=== PATIENT | female | born 1965 | race Caucasian/White ===

== ENCOUNTER → 2017-10-15 | Outpatient (CLI) | payer OTHER ==
[~2017-10-15] MED LIST: ASCA500 PO; ATV1 PO; CALC600T9 PO; HYOS1TAB PO; MIRA100T PO; NATA1INJ IV; [UNRECOGNIZED DRUG - OTHER]
--- NOTE | 2017-10-15 12:09 | DIAGNOSTIC IMAGING REPORT ---
KUB CLINICAL HISTORY: MRI PAIN PUMP CLEARANCE COMPARISON STUDY: No previous studies for comparison. FINDINGS: There are surgical clips within the pelvis consistent with prior tubal ligation. There is a left midabdominal intrathecal pain pump, and catheter, demonstrating normal orientation. IMPRESSION: The patient's intrathecal pain pump demonstrates a normal orientation. Electronically signed by: Carlos Rm M.D. 10/15/2017 12:08 PM Dictated Date/Time: 10/15/2017 12:05 PM
== END | disposition home or self-care (01) ==
LOC: C.MRIBC 11:03
PROVIDERS: ATTEND Psychiatry & Neurology Neurology
DX: G35 Multiple sclerosis (principal); Z97.8 Presence of other specified devices

== ENCOUNTER 2021-11-02 17:04 | Inpatient (IN) ==
[2021-11-02 18:16] LABS: Hematocrit (blood only) 40.5 % (37-47); Hemoglobin 13.6 g/dL (12.0-16.0); Immature Granulocytes # (auto) 0.03 K/uL (0.00-0.02); Immature Granulocytes % (auto) 0.2 %; Lymphocytes # (auto) 0.76 K/uL (1.2-3.4); Lymphocytes % (auto) 3.9 %; Mean Corpuscular Hemoglobin 32.2 pg (25-34); Mean Corpuscular Hgb Conc 33.6 g/dL (32-36); Mean Platelet Volume 13.2 fL (7.4-10.4); Monocytes # (auto) 0.94 K/uL (0.11-0.59); Monocytes % (auto) 4.9 %; Neutrophils # (auto) 17.64 K/uL (1.4-6.5); Platelet Count 167 K/uL (130-400); RDW Coefficient of Variation 14.7 % (11.5-14.5); RDW Standard Deviation 51.9 fL (36.4-46.3); Red Blood Count 4.22 M/uL (4.2-5.4); White Blood Count 19.37 K/uL (4.8-10.8)
[2021-11-02 18:24] LABS: Alanine Aminotransferase 90 (12-78); Aspartate Aminotransferase 83 U/L (15-37); BUN Creatinine Ratio 16.8 (10-20); Blood Urea Nitrogen 16 mg/dl (7-18); Calcium 9.3 mg/dl (8.5-10.1); Carbon Dioxide 25 mmol/L (21-32); Chloride 101 mmol/L (98-107); Est GFR (African American) 76.6 ml/min; Est GFR (Non-African American) 66.1 ml/min; Glucose 127 mg/dl (70-99); Potassium 2.9 mmol/L (3.5-5.1); Sodium 137 mmol/L (136-145)
[2021-11-02 18:27] LABS: INR 1.2 (0.9-1.1); Partial Thromboplastin Ratio 1.7; Partial Thromboplastin Time 44.3 Seconds (21.0-31.0)
[2021-11-02 18:31] LABS: Albumin Globulin Ratio 0.8 (0.9-2); Alkaline Phosphatase 145 U/L (45-117); Bilirubin,Total 2.5 mg/dl (0.2-1); Globulin 3.8 gm/dl (2.5-4.0); Total Protein 6.8 gm/dl (6.4-8.2)
[2021-11-02] MEDS ORDERED: SODIUM CHLORIDE 0.9% 1000ML 1,000 ML IV ONE (18:32)
--- NOTE | 2021-11-02 18:35 | Emergency Department Note ---
Impression & Plan Sepsis ADMIT ED Provider Note HPI: The patient is a 56-year-old female with history of MS, history of intrathecal pump for baclofen/back pain, presents the emergency department with her at the bedside over concern for fever and decreased mentation/fatigue over the past several days. Patient's states that she has gotten like this previously because of urinary tract infections. He is also concerned that her baclofen pump dosage has been reduced recently and this has been causing her some discomfort. Patient is vaccinated against COVID-19 x2. Patient's at the bedside states that the patient is seems "not herself" over the past day and 1/2 to 2 days. States that she has been less responsive than usual, she has had fevers at home. Patient has not had any increased work of breathing, she is not had any vomiting. She appears somewhat listless on arrival but she is responsive to verbal stimuli. She is saturating well on room air. She is mildly tachycardic but otherwise does not appear to be in any acute distress. ROS: -General: Generalized weakness, fevers -Neuro: Declining mentation over the past several days *10 point review systems was conducted and is otherwise negative unless stated above *Outpatient medications and allergy history reviewed PE: General: Alert to verbal stimuli, listless appearing, wheelchair-bound HEENT: Normocephalic, atraumatic, trachea midline Eyes: Extraocular eye movement is intact, no scleral erythema Pulmonary: Tachycardic rate with regular rhythm Cardio: Regular rate and rhythm GI: Abdomen is soft, nontender : No suprapubic tenderness MSK: No evidence of trauma or malformation of the extremities, no edema Skin: No evidence of rash Neuro: Alert to verbal stimuli, no new focal deficits, baseline deficits with MS Psychiatric: Cooperative, not aggressive panel monitor: - An order was placed for continuous cardiac monitoring - Patient was noted to be in sinus rhythm with rate of 85 EKG: Rate: 90 Rhythm: Sinus rhythm with PVCs Intervals: Within normal limits ST changes: No ST elevation Time: 1851 Medical Decision Making: Patient presented with fevers from home, she is also had some generalized weakness and diminished mentation from baseline according to her at the bedside. Lab work shows evidence of a significant leukocytosis with white blood cell count greater than 19,000, blood cultures were drawn in the ED as well as urinalysis and urine culture. Urinalysis is consistent with infection, patient was treated with IV ceftriaxone. Patient was given IV fluids and tachycardia did downtrend. She was not given a full 30 cc/kg secondary to hemodynamic stability, lactic acid is noted to be within normal limits. I suspect that the patient's symptoms are secondary to urinary tract infection, she is alert to verbal stimuli, no obvious focal deficits. She does follow my commands appropriately. Interventions included IV fluids, IV ceftriaxone. Patient was given IV morphine for chronic back pain, she is on a baclofen pump for this. Chest x-ray does not show any evidence of pneumonia, COVID-19 testing is negative. Ultrasound im aging of the right upper quadrant was obtained as there is a slight transaminitis, this does not show any evidence of acute surgical pathology, does show some fatty liver disease which is likely the source of the transaminitis. I discussed all the above findings with the patient and her at the bedside and they are in agreement for admission. Patient was admitted in stable condition. Diagnosis: 1. Urinary tract infection, urosepsis 2. Leukocytosis 3. Hypokalemia 4. Transaminitis, elevated bilirubin, hepatic steatosis Disposition: ADMIT Fili Khan DO Emergency Medicine Past Med/Surg History Medical History (Updated 11/03/21 @ 00:25 by Fili Khan DO) Multiple sclerosis Presence of intrathecal pump since 2008 Surgical History Chronic suprapubic catheter 2012 H/O section S/P insertion of intrathecal pump 2008 Social History Smoking Status: Never smoker Hx Alcohol Use: No Hx Substance Use: No Preferred Language: German Visual Impairment: No Limitations Hearing Ability: Normal marital status: Current Living Situation: Family current occupational status: retired current occupation: [employer] Feels Safe at Home: Yes Allergies Allergies Allergy/AdvReac Type Severity Reaction Status Date / Time No Known Allergies Allergy ` Verified 11/02/21 19:05 Home Meds Home Medications Medication Instructions Recorded Confirmed ascorbic acid (vitamin C) 500 mg 500 mg PO DAILY 08/26/18 11/02/21 tablet calcium carbonate 160 mg calcium 400 mg PO BID tab 08/26/18 11/02/21 (400 mg) chewable tablet lorazepam 1 mg tablet (Ativan) 1 mg PO HS tab 08/26/18 11/02/21 baclofen pump INTRATHECAL 11/06/19 10/30/21 siponimod 2 mg tablet (Mayzent) mg PO .QD tab 04/17/20 10/30/21 furosemide 40 mg tablet 40 mg PO DAILY 05/06/21 11/02/21 simvastatin 20 mg tablet 20 mg PO DAILY 05/06/21 11/02/21 Previous Rx's Medication Instructions Recorded baclofen 10 mg tablet 10 mg PO TID #30 tab 10/15/21 Results & Data (ED) Vital Signs Vital Signs - 24 hr 11/02/21 17:05 11/02/21 22:37 11/03/21 00:21 Temperature 37.7 C H Temperature Source Oral Pulse Rate 106 H Pulse Rate [Left Radial] 70 82 Pulse Rhythm [Left Radial] Regular Regular Pulse Strength [Left Radial] Normal Normal Respiratory Rate 19 16 18 Respiratory Effort / Characteristics Non-Labored Spontaneous Non-Labored Non-Labored Spontaneous Respiratory Depth Normal Normal Normal Respiratory Pattern Regular Blood Pressure 128/102 H Blood Pressure [Left Arm] 152/76 H 120/81 Blood Pressure Mean 110 Blood Pressure Mean [Left Arm] 101 94 Blood Pressure Position [Left Arm] Sitting Pulse Oximetry 95 94 98 Oxygen Delivery Method Room Air Room Air Room Air Sepsis Recent Fever Within 48 Hours Yes Sepsis New/Unexplained Change in Mental Status N/A Sepsis Action Taken by Nursing No Action Required Laboratory Data Result diagrams: 11/02/21 17:30 11/02/21 17:30 Lab Results 11/02/21 11/02/21 11/02/21 Range/Units 17:30 17:30 17:30 WBC 19.37 H (4.8-10.8) K/uL RBC 4.22 (4.2-5.4) M/uL Hgb 13.6 (12.0-16.0) g/dL Hct 40.5 (37-47) % MCV 96.0 (80-100) fL MCH 32.2 (25-34) pg MCHC 33.6 (32-36) g/dL RDW Std Deviation 51.9 H (36.4-46.3) fL RDW Coeff of Lore 14.7 H (11.5-14.5) % Plt Count 167 (130-400) K/uL MPV 13.2 H (7.4-10.4) fL Immature Gran % (Auto) 0.2 % Neut % (Auto) 91.0 % Lymph % (Auto) 3.9 % Hendricks % (Auto) 4.9 % Eos % (Auto) 0.0 % Baso % (Auto) 0.0 % Neut # (Auto) 17.64 H (1.4-6.5) K/uL Lymph # (Auto) 0.76 L (1.2-3.4) K/uL Hendricks # (Auto) 0.94 H (0.11-0.59) K/uL Eos # (Auto) 0.00 (0-0.5) K/uL Baso # (Auto) 0.00 (0-0.2) K/uL Immature Gran # (Auto) 0.03 H (0.00-0.02) K/uL PT 12.0 (9.0-12.0) Seconds INR 1.2 H (0.9-1.1) APTT 44.3 H (21.0-31.0) Seconds PTT Ratio 1.7 Sodium 137 (136-145) mmol/L Potassium 2.9 L (3.5-5.1) mmol/L Chloride 101 (98-107) mmol/L Carbon Dioxide 25 (21-32) mmol/L Anion Gap 11.0 (3-11) BUN 16 (7-18) mg/dl Creatinine 0.96 (0.6-1.2) mg/dl Est Cr Clr Drug Dosing Not Reportable Est GFR ( Amer) 76.6 ml/min Est GFR (Non-Af Amer) 66.1 ml/min BUN/Creatinine Ratio 16.8 (10-20) Glucose 127 H (70-99) mg/dl Lactate (0.4-2.0) mmol/L Calcium 9.3 (8.5-10.1) mg/dl Total Bilirubin 2.5 H (0.2-1) mg/dl AST 83 H (15-37) U/L ALT 90 H (12-78) Alkaline Phosphatase 145 H (45-117) U/L Troponin I < 0.015 (0-0.045) ng/ml Total Protein 6.8 (6.4-8.2) gm/dl Albumin 3.0 L (3.4-5.0) gm/dl Globulin 3.8 (2.5-4.0) gm/dl Albumin/Globulin Ratio 0.8 L (0.9-2) Urine Color Urine Appearance (Clear) Urine pH (4.5-7.5) Ur Specific [place] (1.000-1.030) Urine Protein (Negative) Urine Glucose (UA) (Negative) Urine Ketones (Negative) Urine Blood (Negative) Urine Nitrite (Negative) Urine Bilirubin (Negative) Urine Urobilinogen (Negative) Ur Leukocyte Esterase (Negative) Urine WBC (Auto) (0-5) /hpf Urine RBC (Auto) (0-4) /hpf U Hyaline Cast (Auto) (0-5) /lpf U Epithel Cells (Auto) (0-5) /lpf Urine Bacteria (Auto) (Negative) Ur Renal Epithelial Cell (0-5) /lpf Urine Crystals Triple Phos Crystals (None Prsent) Urine Mucus (None Prsent) Urine Yeast SARS-CoV-2 (PCR) (Negative) Influenza Type A (PCR) (Neg) Influenza Type B (PCR) (Neg) RSV (RT-PCR) (Neg) 11/02/21 11/02/21 11/02/21 Range/Units 18:50 19:22 19:28 WBC (4.8-10.8) K/uL RBC (4.2-5.4) M/uL Hgb (12.0-16.0) g/dL Hct (37-47) % MCV (80-100) fL MCH (25-34) pg MCHC (32-36) g/dL RDW Std Deviation (36.4-46.3) fL RDW Coeff of Lore (11.5-14.5) % Plt Count (130-400) K/uL MPV (7.4-10.4) fL Immature Gran % (Auto) % Neut % (Auto) % Lymph % (Auto) % Hendricks % (Auto) % Eos % (Auto) % Baso % (Auto) % Neut # (Auto) (1.4-6.5) K/uL Lymph # (Auto) (1.2-3.4) K/uL Hendricks # (Auto) (0.11-0.59) K/uL Eos # (Auto) (0-0.5) K/uL Baso # (Auto) (0-0.2) K/uL Immature Gran # (Auto) (0.00-0.02) K/uL PT (9.0-12.0) Seconds INR (0.9-1.1) APTT (21.0-31.0) Seconds PTT Ratio Sodium (136-145) mmol/L Potassium (3.5-5.1) mmol/L Chloride (98-107) mmol/L Carbon Dioxide (21-32) mmol/L Anion Gap (3-11) BUN (7-18) mg/dl Creatinine (0.6-1.2) mg/dl Est Cr Clr Drug Dosing Est GFR ( Amer) ml/min Est GFR (Non-Af Amer) ml/min BUN/Creatinine Ratio (10-20) Glucose (70-99) mg/dl Lactate 0.5 (0.4-2.0) mmol/L Calcium (8.5-10.1) mg/dl Total Bilirubin (0.2-1) mg/dl AST (15-37) U/L ALT (12-78) Alkaline Phosphatase (45-117) U/L Troponin I (0-0.045) ng/ml Total Protein (6.4-8.2) gm/dl Albumin (3.4-5.0) gm/dl Globulin (2.5-4.0) gm/dl Albumin/Globulin Ratio (0.9-2) Urine Color Dark Yellow Urine Appearance Turbid A (Clear) Urine pH >= 9.0 H (4.5-7.5) Ur Specific [place] 1.023 (1.000-1.030) Urine Protein 3+ H (Negative) Urine Glucose (UA) Negative (Negative) Urine Ketones 2+ H (Negative) Urine Blood 1+ H (Negative) Urine Nitrite Positive A (Negative) Urine Bilirubin 1+ H (Negative) Urine Urobilinogen Negative (Negative) Ur Leukocyte Esterase 3+ H (Negative) Urine WBC (Auto) >30 H (0-5) /hpf Urine RBC (Auto) 5-10 H (0-4) /hpf U Hyaline Cast (Auto) 0 (0-5) /lpf U Epithel Cells (Auto) >30 H (0-5) /lpf Urine Bacteria (Auto) 3+ H (Negative) Ur Renal Epithelial Cell 0-5 (0-5) /lpf Urine Crystals Not Reportable Triple Phos Crystals Present A (None Prsent) Urine Mucus Present A (None Prsent) Urine Yeast Not Reportable SARS-CoV-2 (PCR) NEGATIVE (Negative) Influenza Type A (PCR) Negative (Neg) Influenza Type B (PCR) Negative (Neg) RSV (RT-PCR) Negative (Neg) Administered Medications Discontinued Medications Sodium Chloride (Nss 1000ml) 1,000 mls @ 999 mls/hr IV .[id number] ONE Stop: 11/02/21 19:32 Last Infusion: 11/02/21 22:25 Dose: 0 mls/hr Documented by: [id number] Admin: 11/02/21 21:14 Dose: 999 mls/hr Documented by: [id number] Ceftriaxone Sodium (Rocephin) 2,000 mg in 70 mls @ 140 mls/hr IV NOW STA Stop: 11/02/21 20:25 Last Infusion: 11/02/21 21:15 Dose: 0 mls/hr Documented by: [id number] Admin: 11/02/21 20:18 Dose: 140 mls/hr Documented by: [id number] Morphine Sulfate (Morphine Sulfate 2 Mg/Ml Carp) 2 mg IV NOW STA Stop: 11/02/21 19:37 Last Admin: 11/02/21 19:50 Dose: 2 mg Documented by: [id number] Potassium Chloride (Potassium Chloride Pwd 20 Meq Pack) 40 meq PO NOW STA Stop: 11/02/21 19:30 Last Admin: 11/02/21 20:19 Dose: 40 meq Documented by: [id number] Imaging Data Radiologist's Impression: Gallbladder Ultrasound 11/02/21 19:35 US gallbladder LIMITED ABDOMEN CLINICAL HISTORY: Back pain, elevated LFTs. COMPARISON: None. TECHNIQUE: Multiple grayscale and color images of the right upper quadrant of the abdomen. FINDINGS: Pancreas: The pancreas is within normal limits with no focal mass or peripancreatic fluid collection identified. Liver: The liver is heterogeneous in echogenicity There is no evidence for a focal mass. There is no intrahepatic biliary duct dilatation. Gallbladder: The gallbladder is well distended with no evidence of cholelithiasis, wall thickening or pericholecystic edema. There was a negative sonographic Field sign. Common Bile Duct: (CBD): It is normal in size measuring 5 mm. Inferior Vena Cava (IVC): The imaged IVC is patent. Right kidney: There is no evidence for hydronephrosis, calculus or gross renal mass. The kidney is normal in size. IMPRESSION: Heterogeneous echogenicity of the liver characteristic of hepatocellular disease and probable fatty infiltration. ACT 112: Negative or not required by law. Electronically signed by: Grupo Leyva M.D. 11/02/2021 9:04 PM Chest X-Ray 11/02/21 19:38 XR chest 1V portable CLINICAL HISTORY: Fever, eval for PNA. COMPARISON STUDY: No previous studies for comparison. TECHNIQUE: 1 view of the chest FINDINGS: Single frontal view of the chest demonstrates the cardiomediastinal silhouette to be within normal limits. The lungs are clear of alveolar opacities. There is no evidence for pleural effusion. There is no evidence for vascular congestion. There is no acute osseous pathology. IMPRESSION: No acute cardiopulmonary disease. ACT 112: Negative or not required by law. Electronically signed by: Grupo Leyva M.D. 11/02/2021 8:57 PM Discharge Plan Visit Data Chief Complaint: Back Injury/Pain Stated Complaint: FEVER, BACK PAIN, MUSCLE SPASMS ED Provider: Fili Khan Discharge Problem: Sepsis Forms Stand Alone Forms: [facility] [employer] Prescriptions Prescriptions: No Action baclofen pump intrathecal RF: 0 Mayzent 2 mg tablet PO .QD RF: 0 furosemide 40 mg tablet 40 mg PO DAILY RF: 0 simvastatin 20 mg tablet 20 mg PO DAILY RF: 0 ascorbic acid (vitamin C) 500 mg tablet 500 mg PO DAILY RF: 0 calcium carbonate 400 mg tablet,chewable 400 mg PO BID RF: 0 lorazepam [Ativan] 1 mg tablet 1 mg PO HS RF: 0 baclofen 10 mg tablet 10 mg PO TID Qty: 30 RF: 0 Referrals Referrals: Marilyn Alcantar MD [Primary Care Provider] - Discharge Problem: Sepsis Qualifiers: Sepsis type: sepsis due to unspecified organism Sepsis acute organ dysfunction status: unspecified Qualified Code(s): A41.9 - Sepsis, unspecified organism
[2021-11-02] MEDS ORDERED: POTASSIUM CHLORIDE PWD 20 MEQ PACK PO STA (19:29)
[2021-11-02] MEDS ORDERED: MoRPHine SULFATE 2 MG/ML CARP IV STA (19:36)
[2021-11-02 19:38] LABS: Troponin I < 0.015 ng/ml (0-0.045)
[2021-11-02 19:39] LABS: Appearance Urine Turbid (Clear); Bacteria Urine Automated 3+ (Negative); Blood Urine 1+ (Negative); Color Urine Dark Yellow; Epithelial Cell Urine Auto >30 /lpf (0-5); Glucose Urine UA Negative (Negative); Ketones Urine 2+ (Negative); Leukocyte Esterase Urine 3+ (Negative); Nitrite Urine Positive (Negative); Specific Gravity Urine 1.023 (1.000-1.030); Urobilinogen Urine Negative (Negative); WBC Urine Automated >30 /hpf (0-5); pH Urine >= 9.0 (4.5-7.5)
[2021-11-02 19:42] LABS: Influenza A virus by PCR Negative (Neg); Influenza B virus by PCR Negative (Neg); RSV by PCR Negative (Neg); SARS CoV2 RNA(COVID-19) InHosp NEGATIVE (Negative)
[2021-11-02 19:51] LABS: Bilirubin Urine 1+ (Negative); Protein Urine 3+ (Negative)
[2021-11-02] MEDS ORDERED: cefTRIAXone SODIUM 2,000 MG/70 ML BAG IV STA (19:56)
[2021-11-02 20:05] LABS: Cast Urine Automated 0 /lpf (0-5); Mucus Urine Present (None Prsent); Renal Epithelial Cells Urine 0-5 /lpf (0-5); Triple Phosphate Crystal Urine Present (None Prsent)
--- NOTE | 2021-11-02 20:58 | XRay Report ---
XR chest 1V portable CLINICAL HISTORY: Fever, eval for PNA. COMPARISON STUDY: No previous studies for comparison. TECHNIQUE: 1 view of the chest FINDINGS: Single frontal view of the chest demonstrates the cardiomediastinal silhouette to be within normal li mits. The lungs are clear of alveolar opacities. There is no evidence for pleural effusion. There is no evidence for vascular congestion. There is no acute osseous pathology. IMPRESSION: No acute cardiopulmonary disease. ACT 112: Negative or not required by law. Electronically signed by: Grupo Leyva M.D. 11/02/2021 8:57 PM
--- NOTE | 2021-11-02 21:05 | Ultrasound Report ---
US gallbladder LIMITED ABDOMEN CLINICAL HISTORY: Back pain, elevated LFTs. COMPARISON: None. TECHNIQUE: Multiple grayscale and color images of the right upper quadrant of the abdomen. FINDINGS: Pancreas: The pancreas is within normal limits with no focal mass or peripancreatic fluid collection identified. Liver: The liver is heterogeneous in echogenicity There is no evidence for a focal mass. There is no intrahepatic biliary duct dilatation. Gallbladder: The gallbladder is well distended with no evidence of cholelithiasis, wall thickening o r pericholecystic edema. There was a negative sonographic Field sign. Common Bile Duct: (CBD): It is normal in size measuring 5 mm. Inferior Vena Cava (IVC): The imaged IVC is patent. Right kidney: There is no evidence for hydronephrosis, calculus or gross renal mass. The kidney is n ormal in size. IMPRESSION: Heterogeneous echogenicity of the liver characteristic of hepatocellular disease and pro bable fatty infiltration. ACT 112: Negative or not required by law. Electronically signed by: Grupo Leyva M.D. 11/02/2021 9:04 PM
[2021-11-03] MEDS ORDERED: POTASSIUM CHLORIDE / WTR 10 MEQ/100 ML PLCT IV STA (00:28)
[2021-11-03] MEDS ORDERED: ONDANSETRON INJ 2 MG/ML 2 ML VIAL IV PRN (02:25)
[2021-11-03] MEDS ORDERED: NITROGLYCERIN SL 0.4 MG/TAB TAB SL PRN (02:25)
[2021-11-03] MEDS ORDERED: PIPERACILL/TAZOBAC CONSULT ACTIVE PRN (02:25)
[2021-11-03] MEDS ORDERED: HYDROmorphone INJ 0.5 MG/0.5 ML SYR IV PRN (02:44)
--- NOTE | 2021-11-03 03:12 | History and Physical Report ---
DATE OF ADMISSION: 11/02/2021. CHIEF COMPLAINT: Confusion. HISTORY OF PRESENT ILLNESS: A 56-year-old female with past medical history significant for severe multiple sclerosis, neurogenic bladder, detrusor hyperreflexia, history of cellulitis of left groin, wheelchair bound, lives at home with her , was brought in because of confusion. As per , recently her baclofen pump dose was reduced to minimal dose and started on p.o. baclofen. Since then, she is complaining of back pain. There was supposed to be a baclofen pump replacement, but the patient did not want to replace it because of complications that happened before.But since today morning she is confused, she is not at all moving. Her hands are contractured and she is not at all talking and confused. This happens when she gets infections. She was able to eat her lunch. Currently, she is drowsy, arousable, but only keep repeating her name does not answer any other questions. She has a mild temperature spike in the ER, white count of 19, and urinalysis grossly positive. Bilirubin is 2.5. Gallbladder ultrasound, no evidence of cholelithiasis or cholecystitis. As per , she is complaining of back pain, but no other symptoms. No nausea or vomiting. No fever. No diarrhea. Seems urine looks somewhat concentrated. Could not get much history currently. ALLERGIES: No known drug allergies. PAST MEDICAL HISTORY: As mentioned above. PAST SURGICAL HISTORY: . MEDICATIONS: The patient is on ascorbic acid 500 mg p.o. daily, baclofen 10 mg p.o.bid, baclofen pump, calcium carbonate 400 mg p.o. b.i.d., Lasix 40 mg p.o. daily, Ativan 1 mg p.o. at bedtime, simvastatin 20 mg p.o. daily, Mayzent 2 mg p.o. daily. FAMILY HISTORY: Significant for father has alcoholic liver disease, lung cancer, mets to brain; mother had COPD; paternal grandmother had COPD; sister has multiple sclerosis. SOCIAL HISTORY: , no smoking, no alcohol, no drug use. REVIEW OF SYSTEMS: Could not get complete review of systems as the patient is confused. PHYSICAL EXAMINATION: GENERAL: The patient is drowsy, arousable, only oriented to name. VITAL SIGNS: Temperature 37.7, pulse 82, respiratory rate 18, blood pressure 120/81, oxygen 98% on room air. HEENT: Pupils equal, round and reactive to light. Oral mucosa moist. NECK: No JVD, no neck masses. CARDIOVASCULAR: S1 and S2 heard. Regular rate and rhythm. No murmur, no gallop. RESPIRATORY SYSTEM: Normal AP diameter. No accessory muscle use. No wheezing, no crackles. ABDOMEN: Soft, bowel sounds present, nontender, no distention. CENTRAL NERVOUS SYSTEM: Drowsy. Oriented to name only. No other complaints on [employer] exam. EXTREMITIES: No edema, no erythema. LABORATORY DATA: WBC 19, hemoglobin 13.6, hematocrit 40.5, platelets 167. PT 10.12, INR 1.2, APTT 44.3. Sodium 137, potassium 2.9, chloride 101, CO2 25, BUN 16, creatinine 0.9, serum glucose 127. Lactate 0.5, calcium 9.3, total bilirubin 2.5, AST 83, ALT 90, alkaline phosphatase 145. Troponin I less than 0.015. Urinalysis positive. SARS-CoV-2 PCR negative. Influenza A and B PCR negative. RSV PCR negative. IMAGING DATA: Chest x-ray, no acute cardiopulmonary disease. Gallbladder ultrasound, heterogenous echogenicity of liver characteristic of hepatocellular disease and probable fatty infiltration. Gallbladder is well distended. No evidence of cholelithiasis, no evidence of cholecystitis. EKG: Sinus rhythm with frequent PVCs at a rate of 90, nonspecific ST changes seen. ASSESSMENT AND PLAN: This is a 56-year-old female who presents with history of multiple sclerosis, wheelchair bound, presents with confusion and found to have urinary tract infection. 1. Confusion: Most likely encephalopathy secondary to urinary tract infection. Empirically started on Zosyn. Follow the cultures. Started on IV fluids. Monitor in the med tele. 2. Hypokalemia: Will replace. 3. Elevated total bilirubin and transaminitis: Etiology unclear at this time. Gallbladder ultrasound was okay. Will follow the repeat labsin am sand consult gastroenterology in the a.m., getting antibiotics as above. 4. History of multiple sclerosis Wheelchair bound.. Neurogenic bladder: Continue her baclofen pump and home baclofen, Ativan at bedtime and Mayzent. If not improving, consult neurology in the a.m. 5. Hyperlipidemia: Continue statin. 6. Deep venous thrombosis prophylaxis: Lovenox for now. DISPOSITION: Closely monitor in the med tele. PT/OT prior to discharge. Social service to help with discharge planning. Job ID: [id number] [facility]
[2021-11-03] MEDS ORDERED: PIPERACILLIN/TAZOBACTAM 3.375 GM in DEXTROSE 5% 100 ML IV ONE (03:15)
[2021-11-03] MEDS: SODIUM CHLORIDE 0.9% 1000ML 1,000 ML IV SCH ×3 (04:22→23:31)
[2021-11-03] MEDS: ENOXAPARIN INJ 40 MG/0.4 ML SYR SQ SCH (05:07)
[2021-11-03 05:15] LABS: Hematocrit (blood only) 37.8 % (37-47); Hemoglobin 12.2 g/dL (12.0-16.0); Immature Granulocytes # (auto) 0.02 K/uL (0.00-0.02); Immature Granulocytes % (auto) 0.1 %; Lymphocytes # (auto) 0.61 K/uL (1.2-3.4); Lymphocytes % (auto) 4.3 %; Mean Corpuscular Hgb Conc 32.3 g/dL (32-36); Mean Corpuscular Volume 96.2 fL (80-100); Monocytes # (auto) 0.44 K/uL (0.11-0.59); Monocytes % (auto) 3.1 %; Neutrophils # (auto) 13.05 K/uL (1.4-6.5); Neutrophils % (auto) 92.5 %; Platelet Count 149 K/uL (130-400); RDW Coefficient of Variation 14.7 % (11.5-14.5); RDW Standard Deviation 52.2 fL (36.4-46.3); Red Blood Count 3.93 M/uL (4.2-5.4); White Blood Count 14.12 K/uL (4.8-10.8)
[2021-11-03 05:46] LABS: Albumin Level 2.8 gm/dl (3.4-5.0); BUN Creatinine Ratio 25.1 (10-20); Bilirubin Direct 0.5 mg/dl (0-0.2); Calcium 8.8 mg/dl (8.5-10.1); Creatinine Clr Calc Pharmacy 74.2 ml/min; Est GFR (African American) 112.3 ml/min; Est GFR (Non-African American) 96.9 ml/min; Magnesium 1.9 mg/dl (1.8-2.4); Potassium 3.4 mmol/L (3.5-5.1)
[2021-11-03 06:02] LABS: Total Protein 6.5 gm/dl (6.4-8.2)
--- NOTE | 2021-11-03 07:48 | Electrocardiogram Report ---
Test Reason : Blood Pressure : / mmHG Vent. Rate : 090 BPM Atrial Rate : 090 BPM P-R Int : 150 ms QRS Dur : 086 ms QT Int : 380 ms P-R-T Axes : 044 -31 055 degrees QTc Int : 464 ms Sinus rhythm with frequent Premature ventricular complexes Possible Left atrial enlargement Left axis deviation Abnormal ECG When compared with ECG of 11-NOV-2015 09:51, Premature ventricular complexes are now Present QRS axis Shifted left Confirmed by Chriss Maradiaga ([id number]) on 11/03/2021 7:48:01 AM Referred By: Michael Eason Confirmed By:Ivan Maradiaga
[2021-11-03] MEDS ORDERED: POTASSIUM CHLORIDE CRTAB 20 MEQ TABCR PO STA (08:34)
[2021-11-03] MEDS: PIPERACILLIN/TAZOBACTAM 3.375 GM in DEXTROSE 5% 100 ML IV SCH ×2 (08:39→17:18)
[2021-11-03] MEDS: ASCORBIC ACID 500 MG TAB PO SCH (08:44)
[2021-11-03] MEDS: CALCIUM CARBONATE 1250MG TAB PO SCH ×2 (08:45→21:04)
[2021-11-03] MEDS: BACLOFEN 10 MG TAB PO SCH ×3 (08:45→21:04)
[2021-11-03] MEDS: SIMVASTATIN 20 MG TAB PO SCH (08:46)
--- NOTE | 2021-11-03 09:24 | Pain Management Consultation ---
Date of Consultation November 03, 2021 Assessment & Plan (1) Multiple sclerosis: (2) Presence of intrathecal pump: (3) Chronic suprapubic catheter: (4) Sepsis: Sepsis acute organ dysfunction status: unspecified Sepsis type: sepsis due to unspecified organism Qualified Code(s): A41.9 - Sepsis, unspecified organism 1. Patient's intrathecal baclofen pump dosing has been gradually reduced over the past 6 months and was adjusted from approximately 9 mcg/day to 1 mcg/day on 10/30/2021. The patient has prior history of similar presentation with infections in the past and appears to currently be septic potentially associated UTI/pyelonephritis upon this admission which may explain her plethora of symptoms. Unlikely relationship with her recent dose reduction in her intr athecal baclofen pump although her dose was reverted back to 9 mcg/day which was her dose on 10/30/2021 prior to the recent adjustment. We will plan for further adjustment in the outpatient setting. 2. Patient may utilize oral baclofen 10 mg 3 times daily-will adjust as needed given recent pump adjustment 3. Will transition hydromorphone 0.5 mg IV from every 6 to every 4 due to persisting complaints of back pain 4. Patient will continue her antibiotic therapy pending outcome of urine culture/sensitivities 5. Will continue to follow upon this admission Thank you for allowing us to participate in the care of Mrs. Adams History of Present Illness Reason for Consultation: Management of intrathecal baclofen pump Requesting Physician: Guillermo Orozco MD Attending Physician: Khanh Blakely MD History of Present Illness Ms. Adams is a 56-year-old white female who is well-known to the [facility] pain service for chronic management of her intrathecal baclofen pump. The patient has history of multiple sclerosis which has required implantat ion of intrathecal baclofen pump cath delivery system for control of spasticity. The patient has most recently been undergoing dose reductions of her intrathecal baclofen pump in an attempt to determine necessity of ongoing use of intrathecal pump as her pump battery is currently depleting and she will need pump replacement within the next 11 months. Patient had been undergoing successful dose reductions without evidence of breakthrough spasticity or complications. The patient underwent a dose reduction from approximately 8.9 mcg/day to 1.1 mcg/day on 10/30/2021. The patient was provided oral baclofen for as needed breakthrough spasm. The patient's contacted the on-call nurse through pain clinic yesterday with complaints of spasm. He was also reporting fevers and complaints of pain which led to emergent evaluation. Patient has been admitted with fever and suspected UTI and began on antibiotic therapy. The patient has not been experiencing any significant difficulties with breakthrough spasm per the patient or her 's reporting. There have been some episodes of confusion and minimal talking. She is complaining of low back pain, but has difficulty describing location or characteristic at today's visit. She also has some right-sided knee and ankle pain as she had a fall in the home last week. There was no primary evaluation since the time of the fall. Patient has prior history of UTI with similar presentations per the 's report. Patient has been started on antibiotic therapy upon his admission with urine cultures pending. The patient denies any radicular pattern pain, abdominal pain or any significant spasm. The denied any redness or swelling of the right knee or ankle region. Pain complaint is only present with movement predominately of the right knee region. No further constitutional complaints were noted. Plan of care discussed with Dr. Eason. Pain Assessment Full Body Front + Back: 1. Lumbar spine-axial nonspecific 2. Right knee pain 3. Right ankle pain Pain scale - at its best (0-10): 3 Pain scale - at its worst (0-10): 7 Allergies Allergy/AdvReac Type Severity Reaction Status Date / Time No Known Allergies Allergy ` Verified 11/02/21 19:05 Home Medications Medication Instructions Recorded Confirmed Type ascorbic acid (vitamin C) 500 mg 500 mg PO DAILY 08/26/18 11/02/21 History tablet calcium carbonate 160 mg calcium 400 mg PO BID tab 08/26/18 11/02/21 History (400 mg) chewable tablet lorazepam 1 mg tablet (Ativan) 1 mg PO HS tab 08/26/18 11/02/21 History baclofen pump INTRATHECAL 11/06/19 10/30/21 History siponimod 2 mg tablet (Mayzent) mg PO .QD tab 04/17/20 10/30/21 History furosemide 40 mg tablet 40 mg PO DAILY 05/06/21 11/02/21 History simvastatin 20 mg tablet 20 mg PO DAILY 05/06/21 11/02/21 History baclofen 10 mg tablet 10 mg PO TID #30 tab 10/15/21 11/02/21 Rx Pain History Pain Intensity Pain scale - at its best (0-10): 3 Pain scale - at its worst (0-10): 7 Patient History Medical History (Updated 11/03/21 @ 00:25 by Fili Khan DO) Multiple sclerosis Presence of intrathecal pump since 2008 Surgical History Chronic suprapubic catheter 2012 H/O section S/P insertion of intrathecal pump 2008 Social History Smoking Status: Never smoker Hx Alcohol Use: No Hx Substance Use: No Preferred Language: Omani Visual Impairment: No Limitations Hearing Ability: Normal marital status: Current Living Situation: Family current occupational status: retired current occupation: [employer] Feels Safe at Home: Yes Physical Exam Physical Exam: General: Patient sitting quietly in exam room in no acute distress. Mood and affect appropriate. Patient was sitting up in motorized wheelchair upon in the room accompanied by her . Patient with difficulty verbalizing answers to questions-word finding difficulties Head: Normocephalic and atraumatic. ENT: No evidence of nasal or oral mucosal lesions. Mucous membranes are moist. Eyes: Pupils equal round reactive to light. Neck: Supple without adenopathy and full range of motion. Chest: Nontender to palpation of the costosternal junction. Abdomen: Soft and nondistended. No organomegaly. Bowel sounds active. Intr athecal pump present in the left lower quadrant without evidence of edema, erythema or skin breakdown. Nontender to palpation. Back/spine: Loss of lordosis. Patient is moderately tender at the lumbosacral junction bilaterally and equal. Nontender over the midline. No focal facet joint tenderness. No obvious skin breakdown over the lumbar region. Minimally tender to percussion over the flank region bilaterally. 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 Right knee without evidence of edema, erythema or warmth. Nontender to palpation along the medial lateral joint line. Right knee discomfort was reported by the patient with extension. No visible abnormalities of the right ankle or foot. Nontender with dorsi/plantar flexion passive/active. Extremities: No spontaneous spasticity/contraction appreciated. I am able to passively extend and flex her upper and lower extremities without rigidity. Neurological: Cranial nerves grossly intact. Ambulatory function via motorized wheelchair.
[2021-11-03] MEDS ORDERED: OPTIRAY 320 100ml IV ONE (11:08)
--- NOTE | 2021-11-03 11:27 | CT Scan Report ---
CT OF THE ABDOMEN AND PELVIS WITH CONTRAST CLINICAL HISTORY: elevated LFTs. COMPARISON STUDY: Right upper quadrant ultrasound November 02, 2021. TECHNIQUE: Following IV administration of 95 mL of Optiray, axial images of the abdomen and pelvis we re obtained from the lung bases to the proximal femurs. Images were reviewed in the axial, sagittal, and coronal planes. IV contrast was administered without complication. Automated exposure control wa s utilized for the study. A dose lowering technique was utilized adhering to the principles of ALARA . CT DOSE: 788.98 mGy.cm FINDINGS: [id number] is partially imaged. Trace left pleural effusion is noted with associated ate lectasis. An intrathecal catheter is partially imaged. Catheter tip is not visualized on this exam. V isualized portions of the catheter are intact. No pneumatosis, free air or portal venous gas is prese nt. The liver, spleen, adrenal glands and pancreas are unremarkable. There is no biliary or pancreati c ductal dilatation. There is no peripancreatic or pericholecystic infiltration. Bilateral renal calc demetrius are noted, including an 8 mm calculus within the upper pole of the right kidney. There is mild le ft hydronephrosis due to a 7 mm proximal left ureteral calculus. In addition, there is a 3 mm calculu s within the left renal pelvis. Left nephrogram is mildly delayed. A few hypoenhancing foci within th e left kidney are noted. Mild left perinephric stranding is present. There is mild urothelial thicken ing of the proximal left ureter. Suprapubic catheter is in place. Note is made of a 1.6 cm bladder ca lculus. Bladder is collapsed. The caliber and wall thickness of small and large bowel are normal. The appendix is normal. There is no evidence for a bowel obstruction. There is trace presacral infiltrat ion. Moderate amount stool within the rectum is noted. There is no abscess. Major vasculature is porter nt. Muscular atrophy is incidentally noted. IMPRESSION: 1. 7 mm proximal left ureteral calculus results in mild left hydronephrosis. Heterogeneous enhancemen t of the left kidney and urothelial thickening of the proximal left ureter is likely due to the obstr uction however a superimposed infectious process could appear similar. 2. Bilateral nephrolithiasis. 3 mm left renal pelvis calculus. 3. No biliary ductal dilatation. 4. Suprapubic catheter in place. 1.6 cm bladder calculus. ACT 112: Negative or not required by law. Electronically signed by: Sekou Blount M.D. 11/03/2021 11:26 AM
--- NOTE | 2021-11-03 12:38 | Gastrointestinal Consultation ---
Date of Consultation November 03, 2021 Assessment & Plan (1) Elevated LFTs: She had significant elevated T Bili on arrival, with moderate transaminase elevation. I was able to speak with her PCP office who reported one episode of previous transaminitis in Sep 2020: AST 65, ALT 74 though T Bili was 0.4 at that time. She also had a mild AST elevation in January of this year at 38. She does not seem to be uncomfortable and there is no evidence of gallbladder or bile duct abnormalities on imaging. Suspect related to infection ? UTI on this arrival or related to the medication Mayzet or a combination of one of these and the fatty liver that is present on imaging. The previously mentioned moderate transaminitis in Sep 2020 was prior to the initiation of the Mayzet which was Nov 2020. According to the NIH liver tox website, this med has been found to increase transaminase levels in approx 6-8% of pts, though there hasn't been cases of clinically significant liver injury. This would not explain the T bili elevation on arrival or mild D Bili elevation this morning. Recheck LFTs tomorrow. Will check autoimmune and infectious serologies. Supervising Physician Co-Signing Physician Notes Attg Add: I interviewed and examined pt, reviewed chart and labs. Pt with MS and IT pump confusion and WBC, possibly related to UTI, found to have LFT elevation, transient increased bili. Lipase unremarkable, Uls without fred dil or stones, CT unremarkable. Possible DILI vs stones/sludge. Will follow labs for now, consider EUS if bili bumps again. Of note, cannot History of Present Illness Reason for Consultation: Elevated LFTs Requesting Physician: Dr. Orozco Attending Physician: Khanh Blakely MD History of Present Illness Ms. My Adams is a 56 yr old female pt of Dr. Marilyn Alcantar MD ([facility]) who presented to the ED yesterday for confusion which cleared this morning. Urine was dark on arrival, she had leukocytosis at 19. She had a temp to 37.7 here. However, prior to arrival, other than confusion, the pt and verify that there were no signs of illness/infection other than the confusion. On arrival LFTs were found to be elevated (T Bili 2.5-> 1; AST 85- >40, ALT 90->77, Alk Phos 145->136. She denies any abdominal pain, jaundice, icterus, pruritus, nausea, decreased appetite or unexplained weight loss. On exam, she is awake, alert,oriented, non tender w/o jaundice. Allergies Allergy/AdvReac Type Severity Reaction Status Date / Time No Known Allergies Allergy ` Verified 11/02/21 19:05 Home Medications Medication Instructions Recorded Confirmed Type ascorbic acid (vitamin C) 500 mg 500 mg PO DAILY 08/26/18 11/02/21 History tablet calcium carbonate 160 mg calcium 400 mg PO BID tab 08/26/18 11/02/21 History (400 mg) chewable tablet lorazepam 1 mg tablet (Ativan) 1 mg PO HS tab 08/26/18 11/02/21 History baclofen pump INTRATHECAL 11/06/19 10/30/21 History siponimod 2 mg tablet (Mayzent) 2 mg PO DAILY tab 04/17/20 11/03/21 History furosemide 40 mg tablet 40 mg PO DAILY 05/06/21 11/02/21 History simvastatin 20 mg tablet 20 mg PO DAILY 05/06/21 11/02/21 History baclofen 10 mg tablet 10 mg PO TID #30 tab 10/15/21 11/02/21 Rx Patient History Medical History (Updated 11/03/21 @ 12:23 by LINDA Murphy) Multiple sclerosis Presence of intrathecal pump since 2008 Surgical History Chronic suprapubic catheter 2012 H/O section S/P insertion of intrathecal pump 2008 Social History Smoking Status: Never smoker Hx Alcohol Use: No Hx Substance Use: No Preferred Language: Czech Communication Ability: Effective Visual Impairment: No Limitations Hearing Ability: Normal Armature 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 Required: No Beliefs That Will Affect Care: None marital status: Current Living Situation: Spouse current occupational status: retired current occupation: [employer] How many Children do You have: 0 Feels Safe at Home: Yes Safety Concerns: Feels Safe At This Time Assistive Devices: Mechanical Lift and Wheelchair Review of Systems Review of Systems: ROS: Gen: + weakness, + confusion, no fevers, no weight loss Eyes: No yellow eyes or eye redness, no eye pain, no recent vision changes Resp: No SOB, no cough Cardio: No palpitations/irregular beats, no chest pain GI: No abdominal pain, no nausea/vomiting : + dark urine but no obvious blood in urine. Suprapubic cath present Skin: No jaundice, itching or new rashes Physical Exam Constitutional: well developed, + ill appearing (chronically ), cooperative and comfortable Eyes: PERRL, conjunctivae normal, anicteric sclerae Neck: trachea midline, no thyromegaly Respiratory: normal respiratory effort, lungs clear to auscultation (diminished at bases but no adventitious sounds) Cardiovascular: RRR, no murmur, no edema Gastrointestinal (Abdomen): normal bowel sounds, soft, nontender, no hepatosplenomegaly Inspection/Auscultation: abdomen normal to inspection and normal bowel sounds; abdomen not distended and no abdominal edema Musculoskeletal: hand/wrist contractures present Skin: no rashes, warm and dry normal turgor Neurologic: awake; not confused chronic generalized weakness; in a wheelchair Psychiatric: A+Ox3, euthymic affect Orientation: alert, oriented x 3 and cooperative Results & Data ([facility]) Vital Signs (Past 12 Hours) Vital Signs Pulse Pulse Resp BP BP Pulse Ox Pulse Ox 11/03/21 11:16 89 19 122/76 98 11/03/21 07:49 71 16 116/74 95 11/03/21 05:41 66 115/73 95 11/03/21 04:28 95 11/03/21 04:27 83 119/65 95 11/03/21 02:50 95 H 18 115/76 95 11/03/21 02:00 75 18 136/59 L 96 11/03/21 00:21 82 18 120/81 98 Laboratory Results WBD 14, Hb 12, Hct 37.8 Plts 149, Na 138, K 3.4, Cl 105, CO2 25, BUN 18, Cr 0.5, Glucose 162. Diagnostic Findings CTAP w IV [id number]/21: 1. 7 mm proximal left ureteral calculus results in mild left hydronephrosis. Heterogeneous enhancement of the left kidney and urothelial thickening of the proximal left ureter is likely due to the obstruction however a superimposed infectious process could appear similar. 2. Bilateral nephrolithiasis. 3 mm left renal pelvis calculus. 3. No biliary ductal dilatation. 4. Suprapubic catheter in place. 1.6 cm bladder calculus. GB US 11/02/21: Heterogeneous echogenicity of the liver characteristic of hepatocellular disease and probable fatty infiltration.
--- NOTE | 2021-11-03 16:38 | Hospitalist Progress Note ---
Date of Service November 03, 2021 Assessment & Plan (1) Acute confusion: Plan: Acute metabolic encephalopathy History of severe multiple sclerosis with paraparesis and neurogenic bladder and has been wheelchair-bound Recently intrathecal baclofen dose has been decreased from 9 to 1 mcg/day and she complains to have more pain and noted to have acute UTI Her acute confusion is likely secondary to infection and is complicated by more pain Her confusion has improved to her baseline (2) UTI (urinary tract infection) due to urinary indwelling catheter: Plan: She has neurogenic bladder and noted to have UTI Likely cause for acute confusion Urine culture is growing E. coli She has been getting intravenous Zosyn (3) Multiple sclerosis: Plan: Has severe multiple sclerosis with paraparesis and neurogenic bladder She has been wheelchair-bound Status post intrathecal baclofen pump Her pump medication was changed to 1 mcg from 9 mcg/day on 30 October She complained to have more pain Appreciate pain management input and recommendation-heart pump flow has been adjusted as before She is free of any pain (4) Elevated LFTs: Plan: Noted to have increased LFT GI has been consulted DVT prophylaxis Subcu Lovenox Admission and Anticipated Discharge Date Admission Date: November 02, 2021 Subjective 11/03/2021 The patient was seen and examined in medical telemetry unit She was admitted last night with acute confusion and more pain Noted to have UTI Has been feeling much better during my examination today Review of Systems Review of Systems: All systems reviewed and are unremarkable except as noted below Musculoskeletal: She has multiple sclerosis with paraparesis Physical Exam Physical Exam: Lying in bed comfortably Constitutional: average body habitus; not ill appearing Eyes: PERRL, conjunctivae normal, anicteric sclerae ENMT: external ear and nose normal, oropharynx normal Neck: trachea midline, no thyromegaly Respiratory: no respiratory distress Auscultation: lungs clear to auscultation bilaterally Cardiovascular: Rate/Rhythm: regular rate and regular rhythm; not tachycardic Heart Sounds: normal S1 and normal S2; no murmur Extremities: + edema (Trace edema bilaterally) Gastrointestinal (Abdomen): Inspection/Auscultation: normal bowel sounds; abdomen not distended Percussion/Palpation: abdomen soft; abdomen nontender Musculoskeletal: Extremities: + lower leg abnormality (Flexural deformities of the ankles) Bilateral Neurologic: Severe multiple sclerosis. Paraparesis with wheelchair-bound status. Neurogenic bladder Lymphatic: no cervical or axillary lymphadenopathy Results & Data Results & Data ([facility]) Vital Signs (Past 12 Hours) Vital Signs Temp Pulse Resp BP Pulse Ox Pulse Ox 11/03/21 14:44 37.2 C 90 16 107/68 11/03/21 14:10 90 16 123/92 95 11/03/21 11:16 89 19 122/76 98 11/03/21 07:49 71 16 116/74 95 11/03/21 05:41 66 115/73 95 11/03/21 04:28 95 Laboratory Results Short CBC 11/02/21 11/03/21 Range/Units 17:30 04:15 WBC 19.37 H 14.12 H (4.8-10.8) K/uL Hgb 13.6 12.2 (12.0-16.0) g/dL Hct 40.5 37.8 (37-47) % Plt Count 167 149 (130-400) K/uL BMP 11/02/21 11/03/21 17:30 04:15 Sodium 137 138 Potassium 2.9 L 3.4 L D Chloride 101 105 Carbon Dioxide 25 25 BUN 16 18 Creatinine 0.96 0.70 Glucose 127 H 104 H Calcium 9.3 8.8 Cardiac Enzymes 11/02/21 Range/Units 17:30 Troponin I < 0.015 (0-0.045) ng/ml Liver Function 11/02/21 11/03/21 Range/Units 17:30 04:15 Total Bilirubin 2.5 H 1.0 D (0.2-1) mg/dl Direct Bilirubin 0.5 H (0-0.2) mg/dl AST 83 H 40 H (15-37) U/L ALT 90 H 77 (12-78) Alkaline Phosphatase 145 H 136 H (45-117) U/L Albumin 3.0 L 2.8 L (3.4-5.0) gm/dl Urine 11/02/21 Range/Units 19:28 Urine Color Dark Yellow Urine Appearance Turbid A (Clear) Urine pH >= 9.0 H (4.5-7.5) Ur Specific [place] 1.023 (1.000-1.030) Urine Protein 3+ H (Negative) Urine Glucose (UA) Negative (Negative) Medications Administered Current Inpatient Medications Acetaminophen (Acetaminophen 325 Mg Tab) 650 mg PO Q4H PRN PRN Reason: Pain or Fever Stop: 12/03/21 02:24 Ascorbic Acid (Ascorbic Acid 500 Mg Tab) 500 mg PO DAILY [facility] Stop: 12/03/21 08:59 Last Admin: 11/03/21 08:44 Dose: 500 mg Documented by: Baclofen (Baclofen 10 Mg Tab) 10 mg PO TID [facility] Stop: 12/03/21 08:59 Last Admin: 11/03/21 14:02 Dose: 10 mg Documented by: Calcium Carbonate (Calcium Carbonate 1250mg Tab) 1,250 mg PO BID [facility] Stop: 12/03/21 08:59 Last Admin: 11/03/21 08:45 Dose: 1,250 mg Documented by: Enoxaparin Sodium (Enoxaparin Inj 40 Mg/0.4 Ml Syr) 40 mg SQ Q24H [facility] Stop: 12/03/21 05:59 Last Admin: 11/03/21 05:07 Dose: 40 mg Documented by: Hydromorphone HCl (Hydromorphone Inj 0.5 Mg/0.5 Ml Syr) 0.5 mg IV Q4H PRN PRN Reason: Pain Stop: 11/17/21 02:43 Sodium Chloride (Nss 1000ml) 1,000 mls @ 100 mls/hr IV .Q10H [facility] Stop: 12/03/21 02:24 Last Admin: 11/03/21 14:02 Dose: 100 mls/hr Documented by: Piperacillin Sod/Tazobactam (Sod 3.375 gm/ Dextrose) 115 mls @ 28.75 mls/hr IV Q8H [facility]; Protocol Stop: 11/13/21 07:59 Last Infusion: 11/03/21 12:39 Dose: Infused Documented by: Lorazepam (Lorazepam 1 Mg Tab) 1 mg PO HS [facility] Stop: 12/03/21 20:59 Miscellaneous Information (Piperacill/Tazobac Consult Active) 1 ea N/A UD PRN PRN Reason: Consult Stop: 12/03/21 02:24 Nitroglycerin (Nitroglycerin Sl 0.4 Mg/Tab Tab) 0.4 mg SL UD PRN PRN Reason: Chest Pain Stop: 12/03/21 02:24 Mayzent: Non- Formulary Patient's Own Med 1 ea PO DAILY [facility] Stop: 12/04/21 08:59 Ondansetron HCl (Ondansetron Inj 2 Mg/Ml 2 Ml Vial) 4 mg IV Q6H PRN PRN Reason: Nausea Stop: 12/03/21 02:24 Last Admin: 11/03/21 08:51 Dose: 4 mg Documented by: Simvastatin (Simvastatin 20 Mg Tab) 20 mg PO DAILY [facility] Stop: 12/03/21 08:59 Last Admin: 11/03/21 08:46 Dose: 20 mg Documented by:
[2021-11-03] MEDS: LORazepam 1 MG TAB PO SCH (21:04)
[2021-11-04] MEDS: PIPERACILLIN/TAZOBACTAM 3.375 GM in DEXTROSE 5% 100 ML IV SCH ×2 (00:43→09:07)
[2021-11-04] MEDS: HYDROmorphone INJ 0.5 MG/0.5 ML SYR IV PRN ×3 (01:54→21:23)
[2021-11-04] MEDS: ENOXAPARIN INJ 40 MG/0.4 ML SYR SQ SCH (06:47)
[2021-11-04] MEDS ORDERED: BACLOFEN 10 MG TAB PO PRN (07:29)
--- NOTE | 2021-11-04 08:23 | Pain Management Progress Note ---
Date of Service November 04, 2021 Assessment & Plan (1) Multiple sclerosis: (2) Presence of intrathecal pump: (3) Chronic suprapubic catheter: (4) Sepsis: Sepsis acute organ dysfunction status: unspecified Sepsis type: sepsis due to unspecified organism Qualified Code(s): A41.9 - Sepsis, unspecified organism (5) Lumbar compression fracture: Plan: 1. There was no adjustment of intrathecal baclofen pump at today's visit. She will maintain 9 mcg/day dosing. Patient was unable to complete her MRCP due to axial back pain while attempting to lie supine. Should the MRCP be completed moving forward, please inform pain service so that intrathecal pump can be interrogated after the MRI to ensure that pump stall has recovered. 2. Patient may utilize oral baclofen 10 mg 3 times daily as needed-- scheduled dosing 3. Patient may utilize hydromorphone 0.5 mg IV from every 4 hours as needed for as needed breakthrough pain 4. We discussed her CT findings which did reveal an L2 compression fracture which may be subacute potentially contributing to some axial low back pain complaints as well as discovery of ureteral calculi and renal calculi. Would not recommend any interventional treatment directed at her L2 compression fracture at this time. 5. Will follow up in outpatient pain clinic in 4 weeks Thank you for allowing us to participate in the care of Mrs. Adams. Admission and Anticipated Discharge Date Admission Date: November 02, 2021 Subjective Mrs. Adams is known to the pain service due to her history of multiple sclerosis requiring implantation of intrathecal baclofen pump and catheter delivery system. Her intrathecal baclofen dose was increased from 1 mcg/day to 9 mcg/day yesterday due to his complaints of increased spasm which appear to be likely related to urinary tract infection. The patient was also complaining of low back pain yesterday which has improved. She reported pain this morning when they attempted to lie her flat for MRCP. She is unable to complete the MRCP. She did utilize IV hydromorphone this morning associated with this pain, but otherwise denies any significant difficulties with pain in the flank or lumbosacral region. She denies any difficulties the breakthrough spasm. She has utilized oral baclofen scheduled 10 mg 3 times daily over the past 24 hours. Patient has no further constitutional complaints. Plan of care discussed with Dr. Eason. Physical Exam Physical Exam: General: Patient was sitting up in bed upon entering. She was sleeping but was easily arousable. Cognition is much improved compared to yesterday. Speech and thought process was appropriate. Abdomen: Pump present in left lower quadrant without evidence of edema, erythema or skin breakdown. Abdomen is nontender to palpation. Pump site is without tenderness to palpation and not mobile. Back/spine: No overt tenderness to palpation or percussion over the midline. No flank tenderness to palpation or percussion was appreciated. Extremities: Patient has no evidence of any spontaneous spasticity. No overt rigidity was appreciated. Neurologic: Cranial nerves grossly intact. Results (Pain Clinic) Diagnostic Review CT Findings: [place], [place] [phone] CT Scan Report Patient:UYEN ADAMS Admit Date:11/02/21 MR#:[id number] Address1:[address] Acct ID:[id number] Address2: Date:1965 [facility] Zip:[place] [address] Age:56 Location:[facility] Sex:F Room/Bed:[place] [address] Att Phy:Khanh Blakely MD Diagnosis:BACK PAIN, CONFUSION Suzan Phy:Marilyn Alcantar MD Service Date:11/03/21 Fam Phy: Interpreting Phy:Sekou Blount MDAdmit Phy:Guillermo Orozco MD Ordering Phy:Brenda Cardona cc: ~ ADDENDUM Addendum: Note is made of compression fractures of the inferior endplate of L2, superior endplate of L3 and superior endplate of L4. The L2 fracture may be subacute. Electronically signed by: Sekou Blount M.D. 11/03/2021 11:[address] OF THE ABDOMEN AND PELVIS WITH CONTRAST CLINICAL HISTORY: elevated LFTs. COMPARISON STUDY: Right upper quadrant ultrasound November 02, 2021. TECHNIQUE: Following IV administration of 95 mL of Optiray, axial images of the abdomen and pelvis were obtained from the lung bases to the proximal femurs. Images were reviewed in the axial, sagittal, and coronal planes. IV contrast was administered without complication. Automated exposure control was utilized for the study. A dose lowering technique was utilized adhering to the principles of ALARA. CT DOSE: 788.98 mGy.cm FINDINGS: Hholis-l-Ygkh is partially imaged. Trace left pleural effusion is noted with associated atelectasis. An intrathecal catheter is partially imaged. Catheter tip is not visualized on this exam. Visualized portions of the catheter are intact. No pneumatosis, free air or portal venous gas is present. The liver, spleen, adrenal glands and pancreas are unremarkable. There is no biliary or pancreatic ductal dilatation. There is no peripancreatic or pericholecystic infiltration. Bilateral renal calculi are noted, including an 8 mm calculus within the upper pole of the right kidney. There is mild left hydronephrosis due to a 7 mm proximal left ureteral calculus. In addition, there is a 3 mm calculus within the left renal pelvis. Left nephrogram is mildly delayed. A few hypo enhancing foci within the left kidney are noted. Mild left perinephric stranding is present. There is mild urothelial thickening of the proximal left ureter. Suprapubic catheter is in place. Note is made of a 1.6 cm bladder calculus. Bladder is collapsed. The caliber and wall thickness of small and large bowel are normal. The appendix is normal. There is no evidence for a bowel obstruction. There is trace presacral infiltration. Moderate amount stool within the rectum is noted. There is no abscess. Major vasculature is patent. Muscular atrophy is incidentally noted. IMPRESSION: 1. 7 mm proximal left ureteral calculus results in mild left hydronephrosis. Heterogeneous enhancement of the left kidney and urothelial thickening of the proximal left ureter is likely due to the obstruction however a superimposed infectious process could appear similar. 2. Bilateral nephrolithiasis. 3 mm left renal pelvis calculus. 3. No biliary ductal dilatation. 4. Suprapubic catheter in place. 1.6 cm bladder calculus. ACT 112: Negative or not required by law. Electronically signed by: Sekou Blount M.D. 11/03/2021 11:26 AM Dictated:11/03/21 1111 Transcribed: 11/03/21 1111
[2021-11-04] MEDS: NSS + 20MEQ KCL 20 MEQ/1,000 ML BAG IV SCH ×2 (09:07→19:30)
[2021-11-04] MEDS: CALCIUM CARBONATE 1250MG TAB PO SCH ×2 (09:08→20:58)
[2021-11-04] MEDS: ASCORBIC ACID 500 MG TAB PO SCH (09:08)
[2021-11-04] MEDS: SIMVASTATIN 20 MG TAB PO SCH (09:08)
[2021-11-04] MEDS: [UNRECOGNIZED DRUG - OTHER] PO SCH (09:12)
[2021-11-04 09:18] LABS: Basophils # (auto) 0.01 K/uL (0-0.2); Basophils % (auto) 0.2 %; Eosinophils # (auto) 0.08 K/uL (0-0.5); Eosinophils % (auto) 1.2 %; Hematocrit (blood only) 34.7 % (37-47); Hemoglobin 11.5 g/dL (12.0-16.0); Immature Granulocytes # (auto) 0.01 K/uL (0.00-0.02); Immature Granulocytes % (auto) 0.2 %; Lymphocytes # (auto) 0.24 K/uL (1.2-3.4); Lymphocytes % (auto) 3.7 %; Mean Corpuscular Hemoglobin 31.4 pg (25-34); Mean Corpuscular Hgb Conc 33.1 g/dL (32-36); Mean Corpuscular Volume 94.8 fL (80-100); Mean Platelet Volume 12.2 fL (7.4-10.4); Monocytes # (auto) 0.87 K/uL (0.11-0.59); Monocytes % (auto) 13.4 %; Neutrophils # (auto) 5.27 K/uL (1.4-6.5); Neutrophils % (auto) 81.3 %; Platelet Count 144 K/uL (130-400); RDW Coefficient of Variation 14.9 % (11.5-14.5); RDW Standard Deviation 51.9 fL (36.4-46.3); Red Blood Count 3.66 M/uL (4.2-5.4); White Blood Count 6.48 K/uL (4.8-10.8)
[2021-11-04 10:00] LABS: Albumin Globulin Ratio 0.7 (0.9-2); Albumin Level 2.4 gm/dl (3.4-5.0); BUN Creatinine Ratio 19.7 (10-20); Calcium 9.2 mg/dl (8.5-10.1); Est GFR (African American) 95.5 ml/min; Est GFR (Non-African American) 82.4 ml/min; Globulin 3.4 gm/dl (2.5-4.0); Potassium 3.4 mmol/L (3.5-5.1); Total Protein 5.8 gm/dl (6.4-8.2)
--- NOTE | 2021-11-04 10:02 | Gastroenterology Progress Note ---
Date of Service November 04, 2021 Assessment & Plan (1) Elevated LFTs: Plan: Possible DILI (Mayzet, though had a bump in transaminases prior to starting Mayzet; vs stones/sludge). Will continue to follow (can follow as OP) and will likely plan for OP EUS. No GI contraindication to DC if doing well otherwise. Will check viral serology and SAVANAH today. Admission and Anticipated Discharge Date Admission Date: November 02, 2021 Supervising Physician Co-Signing Physician Notes Attg add: I interviewed and examined pt, reviewed chart and labs. Transaminases remain mildly increased, although bili remains normal. Unable to complete MRI due to back pain. A/P: Mildly increased LFT's - NAFLD, DILI, stones. Will sign off, but please continue to check LFT's q 1-2 days as inpt, and notify us if needed. We will plan outpt f/u, possible outpt EUS and serologic w/u abnl LFT's. Subjective 56 yr old female with MS. Admitted on 11/03 with confusion, likely UTI. Transaminases elevated - today's LFTs: transaminases increasing from yesterday : AST71, ALT 116. T bili and Alk Phos are normal. CT, US w/o bile duct obstruction. Attempted MRCP today, but unable due to pain with attempting to lay flat. Review of Systems Review of Systems: ROS: Gen: + weakness, + confusion, no fevers, no weight loss Eyes: No yellow eyes or eye redness, no eye pain, no recent vision changes Resp: No SOB, no cough Cardio: No palpitations/irregular beats, no chest pain GI: No abdominal pain, no nausea/vomiting : + dark urine but no obvious blood in urine. Suprapubic cath present Skin: No jaundice, itching or new rashes Physical Exam Constitutional: well developed and cooperative Eyes: PERRL, conjunctivae normal, anicteric sclerae Respiratory: normal respiratory effort, lungs clear to auscultation Cardiovascular: Rate/Rhythm: regular rate and regular rhythm trace bilat lower leg edema Gastrointestinal (Abdomen): normal bowel sounds, soft, nontender, no hepatosplenomegaly Musculoskeletal: hand contractures present Skin: no rashes, warm and dry normal turgor + small areas of ecchymosis on both lower legs/feel Neurologic: PERRL, EOMI, accommodation nl, no face palsy, no dysarthria awake; not confused Psychiatric: A+Ox3, euthymic affect Orientation: alert, oriented x 3 and cooperative Genitourinary: suprapubic cath -> collection bag, draining clear yellow urine. Lymphatic: no cervical or axillary lymphadenopathy Results & Data ([facility]) Vital Signs (Past 12 Hours) Vital Signs Temp Pulse Pulse Resp BP Pulse Ox 11/04/21 07:45 36.8 C 76 18 106/69 96 11/04/21 03:35 37.3 C 77 20 115/69 92 11/04/21 00:00 74 11/03/21 23:20 37.4 C 82 20 113/73 97 Laboratory Results WBC 6.48, Hb 11.5, Hct 34.7, Plts 94.8 Na 140, K 3.4, Cl 110, CO2 24, BUN 16, Cr 0.8, glucose 11. T Bili 1, AST 71, ALT 116, Alk Phos 140. Diagnostic Findings CTAP w IV contrast 11/03: 1. 7 mm proximal left ureteral calculus results in mild left hydronephrosis. Heterogeneous enhancement of the left kidney and urothelial thickening of the proximal left ureter is likely due to the obstruction however a superimposed infectious process could appear similar. 2. Bilateral nephrolithiasis. 3 mm left renal pelvis calculus. 3. No biliary ductal dilatation. 4. Suprapubic catheter in place. 1.6 cm bladder calculus. US 11/02/21: Pancreas: The pancreas is within normal limits with no focal mass or peripancreatic fluid collection identified. Liver: The liver is heterogeneous in echogenicity There is no evidence for a focal mass. There is no intrahepatic biliary duct dilatation. Gallbladder: The gallbladder is well distended with no evidence of cholelithiasis, wall thickening or pericholecystic edema. There was a negative sonographic Field sign. Common Bile Duct: (CBD): It is normal in size measuring 5 mm.
[2021-11-04] MEDS: CEFEPIME 2,000 MG in SYRINGE 0 ML IV SCH (16:24)
--- NOTE | 2021-11-04 16:43 | Hospitalist Progress Note ---
Date of Service November 04, 2021 Assessment & Plan (1) Acute confusion: Plan: Acute metabolic encephalopathy History of severe multiple sclerosis with paraparesis and neurogenic bladder and has been wheelchair-bound Recently intrathecal baclofen dose has been decreased from 9 to 1 mcg/day and she complains to have more pain and noted to have acute UTI Her acute confusion is likely secondary to infection and is complicated by more pain Her confusion has improved to her baseline No more confusion (2) UTI (urinary tract infection) due to urinary indwelling catheter: Plan: She has neurogenic bladder and noted to have UTI Likely cause for acute confusion Urine culture is growing E. coli She has been getting intravenous Zosyn Urine culture is growing Pseudomonas aeruginosa and is sensitive to cefepime- antibiotic changed to intravenous cefepime Suprapubic catheter is leaking and change order of catheter has been given (3) Multiple sclerosis: Plan: Has severe multiple sclerosis with paraparesis and neurogenic bladder She has been wheelchair-bound Status post intrathecal baclofen pump Her pump medication was changed to 1 mcg from 9 mcg/day on 30 October She complained to have more pain Appreciate pain management input and recommendation-heart pump flow has been adjusted as before She is free of any pain (4) Elevated LFTs: Plan: Noted to have increased LFT GI has been consulted-she could not tolerate MRI as she cannot lie flat GI is planning to do outpatient EUS after discharge DVT prophylaxis Subcu Lovenox Admission and Anticipated Discharge Date Admission Date: November 02, 2021 Subjective 11/03/2021 The patient was seen and examined in medical telemetry unit She was admitted last night with acute confusion and more pain Noted to have UTI Has been feeling much better during my examination today 11/04/2021 The patient was seen and examined in medical telemetry unit She has been feeling much better She could not tolerate lying flat to have the MRI done She also complains of some leakage from her suprapubic catheter Review of Systems Review of Systems: All systems reviewed and are unremarkable except as noted below Musculoskeletal: She has multiple sclerosis with paraparesis Physical Exam Physical Exam: Lying in bed comfortably Constitutional: average body habitus; not ill appearing Eyes: PERRL, conjunctivae normal, anicteric sclerae ENMT: external ear and nose normal, oropharynx normal Neck: trachea midline, no thyromegaly Respiratory: no respiratory distress Auscultation: lungs clear to auscultation bilaterally Cardiovascular: Rate/Rhythm: regular rate and regular rhythm; not tachycardic Heart Sounds: normal S1 and normal S2; no murmur Extremities: + edema (Trace edema bilaterally) Gastrointestinal (Abdomen): Inspection/Auscultation: normal bowel sounds; abdomen not distended Percussion/Palpation: abdomen soft; abdomen nontender Musculoskeletal: Extremities: + lower leg abnormality (Flexural deformities of the ankles) Neurologic: Alert awake and oriented. Has paraplegia secondary to multiple sclerosis Lymphatic: no cervical or axillary lymphadenopathy Results & Data Results & Data ([facility]) Vital Signs (Past 12 Hours) Vital Signs Temp Pulse Resp BP Pulse Ox 11/04/21 15:01 37.3 C 71 16 110/72 97 11/04/21 11:02 37.2 C 84 16 119/72 98 11/04/21 07:45 36.8 C 76 18 106/69 96 Laboratory Results Short CBC 11/04/21 Range/Units 08:53 WBC 6.48 (4.8-10.8) K/uL Hgb 11.5 L (12.0-16.0) g/dL Hct 34.7 L (37-47) % Plt Count 144 (130-400) K/uL BMP 11/04/21 08:53 Sodium 140 Potassium 3.4 L Chloride 110 H Carbon Dioxide 24 BUN 16 Creatinine 0.80 Glucose 111 H Calcium 9.2 Liver Function 11/04/21 Range/Units 08:53 Total Bilirubin 1.0 (0.2-1) mg/dl AST 71 H (15-37) U/L ALT 116 H (12-78) Alkaline Phosphatase 140 H (45-117) U/L Albumin 2.4 L (3.4-5.0) gm/dl Medications Administered Current Inpatient Medications Acetaminophen (Acetaminophen 325 Mg Tab) 650 mg PO Q4H PRN PRN Reason: Pain or Fever Stop: 12/03/21 02:24 Ascorbic Acid (Ascorbic Acid 500 Mg Tab) 500 mg PO DAILY [facility] Stop: 12/03/21 08:59 Last Admin: 11/04/21 09:08 Dose: 500 mg Documented by: Baclofen (Baclofen 10 Mg Tab) 10 mg PO TID PRN PRN Reason: spasm Stop: 12/03/21 08:59 Calcium Carbonate (Calcium Carbonate 1250mg Tab) 1,250 mg PO BID [facility] Stop: 12/03/21 08:59 Last Admin: 11/04/21 09:08 Dose: 1,250 mg Documented by: Enoxaparin Sodium (Enoxaparin Inj 40 Mg/0.4 Ml Syr) 40 mg SQ Q24H [facility] Stop: 12/03/21 05:59 Last Admin: 11/04/21 06:47 Dose: Not Given Documented by: Hydromorphone HCl (Hydromorphone Inj 0.5 Mg/0.5 Ml Syr) 0.5 mg IV Q4H PRN PRN Reason: Pain Stop: 11/17/21 02:43 Last Admin: 11/04/21 06:48 Dose: 0.5 mg Documented by: Potassium Chloride/Sodium Chloride (Normal Saline W/20 Meq Kcl) 20 meq in 1,000 mls @ 100 mls/hr IV .Q10H [facility]; Protocol Stop: 11/05/21 04:29 Last Admin: 11/04/21 09:07 Dose: 100 mls/hr Documented by: Cefepime HCl 2,000 mg/ Syringe 20 mls @ 5 mls/min IV Q12H [facility] Stop: 11/12/21 23:59 Last Admin: 11/04/21 16:24 Dose: 5 mls/min Documented by: Lorazepam (Lorazepam 1 Mg Tab) 1 mg PO HS [facility] Stop: 12/03/21 20:59 Last Admin: 11/03/21 21:04 Dose: 1 mg Documented by: Nitroglycerin (Nitroglycerin Sl 0.4 Mg/Tab Tab) 0.4 mg SL UD PRN PRN Reason: Chest Pain Stop: 12/03/21 02:24 Mayzent: Non- Formulary Patient's Own Med 1 ea PO DAILY [facility] Stop: 12/04/21 08:59 Last Admin: 11/04/21 09:12 Dose: 1 tab Documented by: Ondansetron HCl (Ondansetron Inj 2 Mg/Ml 2 Ml Vial) 4 mg IV Q6H PRN PRN Reason: Nausea Stop: 12/03/21 02:24 Last Admin: 11/03/21 08:51 Dose: 4 mg Documented by: Simvastatin (Simvastatin 20 Mg Tab) 20 mg PO DAILY [facility] Stop: 12/03/21 08:59 Last Admin: 11/04/21 09:08 Dose: 20 mg Documented by:
[2021-11-04] MEDS: LORazepam 1 MG TAB PO SCH (20:58)
[2021-11-05] MEDS ORDERED: KETOROLAC 30 MG/ML VIAL IV ONE (00:45)
[2021-11-05] MEDS: HYDROmorphone INJ 0.5 MG/0.5 ML SYR IV PRN ×4 (02:36→21:49)
[2021-11-05] MEDS: CEFEPIME 2,000 MG in SYRINGE 0 ML IV SCH (04:21)
[2021-11-05] MEDS: ENOXAPARIN INJ 40 MG/0.4 ML SYR SQ SCH (05:21)
[2021-11-05 07:37] LABS: Albumin Level 2.2 gm/dl (3.4-5.0); Calcium 8.9 mg/dl (8.5-10.1); Creatinine Clr Calc Pharmacy 83.8 ml/min; Est GFR (African American) 116.8 ml/min; Est GFR (Non-African American) 100.8 ml/min; Potassium 3.7 mmol/L (3.5-5.1)
[2021-11-05 07:40] LABS: Albumin Globulin Ratio 0.6 (0.9-2); Bilirubin,Total 0.8 mg/dl (0.2-1); Globulin 3.5 gm/dl (2.5-4.0); Total Protein 5.7 gm/dl (6.4-8.2)
[2021-11-05] MEDS: [UNRECOGNIZED DRUG - OTHER] PO SCH (08:02)
[2021-11-05] MEDS: CALCIUM CARBONATE 1250MG TAB PO SCH ×2 (08:02→21:53)
[2021-11-05] MEDS: ASCORBIC ACID 500 MG TAB PO SCH (08:02)
[2021-11-05] MEDS: SIMVASTATIN 20 MG TAB PO SCH (08:02)
[2021-11-05] MEDS ORDERED: MIDAZOLAM HCL 1 MG/ML 2ML VIAL ONE (08:49)
[2021-11-05] MEDS ORDERED: PROPOFOL IV EMULSION 10 MG/ML 20 ML VIAL IV ONE (08:49)
[2021-11-05] MEDS ORDERED: LIDOCAINE 2% 2 ML VIAL/AMP(20MG/ML) INFIL ONE (08:49)
[2021-11-05] MEDS ORDERED: fentaNYL citrate 100 MCG/2 ML VIAL ONE (08:49)
--- NOTE | 2021-11-05 08:55 | Urology Consultation ---
Date of Consultation November 05, 2021 Assessment & Plan (1) UTI (urinary tract infection) due to urinary indwelling catheter: (2) Left ureteral stone: (3) Bladder stone: We discussed her recent CT scan and that it showed a bladder stone in addition to a left ureteral stone. I suspect the left-sided ureteral stent has been in place for some time, as she is not having any pain from the stone. We discussed the concern for an obstructed infection in the setting of UTI with a stone, and I recommended cystoscopy with left ureteral stent placement to allow the upper tract to drain. I discussed that we would not plan to treat the stones today, the goal would be maximal urinary drainage. We discussed risks of the procedure including bleeding, infection, injury to the urinary tract, inability to place the stent. She expressed understanding and would like to proceed with cystoscopy and left ureteral stent placement. Recommendations: NPO this morning Cystoscopy, left ureteral stent placement today Continue antibiotics directed per recent urine culture. We will plan to exchange her suprapubic tube at the time of the procedure History of Present Illness Reason for Consultation: Bladder stone, left ureteral stone Attending Physician: Edison Romero MD History of Present Illness This is a 56-year-old female with multiple sclerosis, admitted to the hospital on 11/03 with altered mental status. This is thought to be due to metabolic changes and potentially related to acute urinary tract infection. She has a suprapubic tube in place chronically, and was found to be infected with Pseudomonas. She has been improving on antibiotics, but notes that she is having urinary leakage per urethra, which is abnormal for her. CT scan was performed on 11/03/2021, which I independently reviewed. This demonstrates a 1.6 cm stone in the bladder, as well as a 7 mm stone in the left ureter. There is some thickening of the urothelium proximal to the left ureteral stone with hydronephrosis of the left kidney. Urology was consulted for further evaluation potential stone management. She reports that she is feeling okay this morning. She denies any left-sided flank pain. She has no history of kidney stones. She reports poor sensation at baseline in her bladder, and is unable to feel when it is full. She manages with her suprapubic tube currently. Independently reviewed her lab results: WBC trend: 11/02 19.3, 10/2714.1, 11/04 6.4 -overall has normalized. BMP: Potassium and sodium level, chloride 112, creatinine 0.62. Overall normal- appearing renal function. Urinalysis (11/02/2021) positive nitrites, 3+ leukocyte esterase, 3+ bacteria. Blood cultures (11/02): No growth after 48 hours Urine cultures (11/02): Growing Pseudomonas aeruginosa Allergies Allergy/AdvReac Type Severity Reaction Status Date / Time No Known Allergies Allergy ` Verified 11/02/21 19:05 Home Medications Medication Instructions Recorded Confirmed Type ascorbic acid (vitamin C) 500 mg 500 mg PO DAILY 08/26/18 11/02/21 History tablet calcium carbonate 160 mg calcium 400 mg PO BID tab 08/26/18 11/02/21 History (400 mg) chewable tablet lorazepam 1 mg tablet (Ativan) 1 mg PO HS tab 08/26/18 11/02/21 History baclofen pump INTRATHECAL 11/06/19 10/30/21 History siponimod 2 mg tablet (Mayzent) 2 mg PO DAILY tab 04/17/20 11/03/21 History furosemide 40 mg tablet 40 mg PO DAILY 05/06/21 11/02/21 History simvastatin 20 mg tablet 20 mg PO DAILY 05/06/21 11/02/21 History baclofen 10 mg tablet 10 mg PO TID #30 tab 10/15/21 11/02/21 Rx Patient History Medical History Lumbar compression fracture L2-subacute 11/02/2021 CT scan Multiple sclerosis Presence of intrathecal pump since 2008 Surgical History Chronic suprapubic catheter 2012 H/O section S/P insertion of intrathecal pump 2008 Social History Smoking Status: Never smoker Hx Alcohol Use: No Hx Substance Use: No Preferred Language: [place] Communication Ability: Effective Visual Impairment: No Limitations Hearing Ability: Normal Production Assistant Required: No Beliefs That Will Affect Care: None marital status: Current Living Situation: Spouse current occupational status: retired current occupation: [employer] How many Children do You have: 0 Feels Safe at Home: Yes Assistive Devices: Wheelchair Review of Systems Review of Systems: 10 point review of systems negative except for otherwise noted in HPI. Physical Exam Constitutional: + thin; no acute distress Eyes: + anicteric sclerae; pupils not irregular Respiratory: normal respiratory effort; no respiratory distress, does not use accessory muscles and no cough Cardiovascular: well perfused Gastrointestinal (Abdomen): Inspection/Auscultation: abdomen not distended Musculoskeletal: Extremities: extremities normal to inspection Skin: normal turgor; no rashes and no lesions Neurologic: awake No movement of lower extremities Psychiatric: Orientation: alert and oriented x 3 Results & Data ([facility]) Vital Signs (Past 12 Hours) Vital Signs Temp Pulse Pulse Resp BP Pulse Ox 11/05/21 07:12 37.3 C 71 18 122/78 96 11/05/21 03:46 37 C 80 18 109/60 97 11/04/21 23:10 36.9 C 73 18 116/63 99 11/04/21 22:20 71 PG Care Time/CCT Total # of Minutes Spent Total Time Spent with Patient: Total time spent is greater than 50% in coordination of care (as documented) at patient's floor/unit and/or counseling patient: Coding Level of Care Code 21115 Inpt Consult Level 4 Diagnoses UTI (urinary tract infection) due to urinary indwelling catheter T83.511A; N39.0 Left ureteral stone N20.1 Bladder stone N21.0
[2021-11-05] MEDS ORDERED: ATROPINE SULFATE 0.1 MG/ML 10ML SYR IV PRN (09:01)
[2021-11-05] MEDS ORDERED: fentaNYL citrate 100 MCG/2 ML VIAL IV PRN (09:01)
[2021-11-05] MEDS ORDERED: ePHEDrine sulfate 50 MG/ML AMP IV PRN (09:01)
[2021-11-05] MEDS ORDERED: ONDANSETRON INJ 2 MG/ML 2 ML VIAL IV PRN (09:01)
--- NOTE | 2021-11-05 09:01 | Anesthesiology Consultation ---
Date of Service November 05, 2021 Assessment & Plan (1) Encounter for pre-operative examination: Chart Review Chart Review: Acceptable Risk for Surgery and Patient NOT seen in Pre Admission Testing covid neg 11/02/21. Consults Requested none History Surgery Operation Date: 11/05/21 14:00 Proposed Procedures p Cystoscopy, Left Stent Placement - Leon Gonzalez MD Height/Weight Height: 5 ft 3 in Weight: 59.6 kg Allergies Allergy/AdvReac Type Severity Reaction Status Date / Time No Known Allergies Allergy ` Verified 11/02/21 19:05 Medications Home Medications Medication Instructions Recorded Confirmed Last Taken ascorbic acid (vitamin C) 500 mg 500 mg PO DAILY 08/26/18 11/02/21 11/01/21 tablet calcium carbonate 160 mg calcium 400 mg PO BID tab 08/26/18 11/02/21 11/01/21 (400 mg) chewable tablet lorazepam 1 mg tablet (Ativan) 1 mg PO HS tab 08/26/18 11/02/21 11/01/21 baclofen pump INTRATHECAL 11/06/19 10/30/21 11/01/21 siponimod 2 mg tablet (Mayzent) 2 mg PO DAILY tab 04/17/20 11/03/21 Unknown furosemide 40 mg tablet 40 mg PO DAILY 05/06/21 11/02/21 11/01/21 simvastatin 20 mg tablet 20 mg PO DAILY 05/06/21 11/02/21 11/01/21 baclofen 10 mg tablet 10 mg PO TID #30 tab 10/15/21 11/02/21 11/02/21 Active Medications Generic Name Dose Route Start Last Admin Trade Name Adeola PRN Reason Stop Dose Admin Ascorbic Acid 500 mg 11/03/21 09:00 11/05/21 08:02 Ascorbic Acid 500 Mg Tab PO 12/03/21 08:59 500 mg DAILY CAMILA Administration Calcium Carbonate 1,250 mg 11/03/21 09:00 11/05/21 08:02 Calcium Carbonate 1250mg Tab PO 12/03/21 08:59 1,250 mg BID CAMILA Administration Enoxaparin Sodium 40 mg 11/03/21 06:00 11/05/21 05:21 Enoxaparin Inj 40 Mg/0.4 Ml Syr SQ 12/03/21 05:59 40 mg Q24H CAMILA Administration Hydromorphone HCl 0.5 mg 11/03/21 08:06 11/05/21 02:36 Hydromorphone Inj 0.5 Mg/0.5 Ml Syr IV 11/17/21 02:43 0.5 mg Q4H PRN Administration Pain Cefepime HCl 2,000 mg/ Syringe 20 mls @ 5 mls/min 11/04/21 16:00 11/05/21 04:21 IV 11/12/21 23:59 5 mls/min Q12H CAMILA Administration Lorazepam 1 mg 11/03/21 21:00 11/04/21 20:58 Lorazepam 1 Mg Tab PO 12/03/21 20:59 1 mg HS CAMILA Administration Mayzent: Non- 1 ea 11/04/21 09:00 11/05/21 08:02 Formulary Patient's PO 12/04/21 08:59 1 tab Own Med DAILY CAMILA Administration Ondansetron HCl 4 mg 11/03/21 02:25 11/03/21 08:51 Ondansetron Inj 2 Mg/Ml 2 Ml Vial IV 12/03/21 02:24 4 mg Q6H PRN Administration Nausea Simvastatin 20 mg 11/03/21 09:00 11/05/21 08:02 Simvastatin 20 Mg Tab PO 12/03/21 08:59 20 mg DAILY CAMILA Administration Past Medical History Medical History (Updated 11/05/21 @ 09:00 by Judah Gould MD) Acute confusion Lumbar compression fracture L2-subacute 11/02/2021 CT scan Multiple sclerosis Presence of intrathecal pump since 2008 Sepsis 11/05/21: (1) Acute confusion: Plan: Acute metabolic encephalopathy History of severe multiple sclerosis with paraparesis and neurogenic bladder and has been wheelchair-bound Recently intrathecal baclofen dose has been decreased from 9 to 1 mcg/day and she complains to have more pain and noted to have acute UTI Her acute confusion is likely secondary to infection and is complicated by more pain Her confusion has improved to her baseline No more confusion Past Surgical History Surgical History Chronic suprapubic catheter 2012 H/O section S/P insertion of intrathecal pump 2008 Social History Smoking Status: Never smoker Hx Alcohol Use: No Hx Substance Use: No Physical Exam Vital Signs Last Vital Signs Temp 37.3 C 11/05/21 07:12 Pulse 71 11/05/21 07:12 Resp 18 11/05/21 07:12 BP 122/78 11/05/21 07:12 Pulse Ox 96 11/05/21 07:12 Testing Laboratory Results 11/04/21 08:53 11/05/21 06:33 PT 12.0 Seconds (9.0-12.0) 11/02/21 17:30 INR 1.2 (0.9-1.1) H 11/02/21 17:30 APTT 44.3 Seconds (21.0-31.0) H 11/02/21 17:30 Urine Color Dark Yellow 11/02/21 19:28 Urine Appearance Turbid (Clear) A 11/02/21 19: Urine pH >= 9.0 (4.5-7.5) H 11/02/21 19:28 Ur Specific Dalton 1.023 (1.000-1.030) 11/02/21 19:28 Urine Protein 3+ (Negative) H 11/02/21 19:28 Urine Glucose (UA) Negative (Negative) 11/02/21 19:28 Urine Ketones 2+ (Negative) H 11/02/21 19:28 Urine Nitrite Positive (Negative) A 11/02/21 19:28 Ur Leukocyte Esterase 3+ (Negative) H 11/02/21 19:28 Urine WBC (Auto) >30 /hpf (0-5) H 11/02/21 19:28 Urine RBC (Auto) 5-10 /hpf (0-4) H 11/02/21 19:28 U Hyaline Cast (Auto) 0 /lpf (0-5) 11/02/21 19:28 U Epithel Cells (Auto) >30 /lpf (0-5) H 11/02/21 19:28 Urine Bacteria (Auto) 3+ (Negative) H 11/02/21 19:28 11/02/21 19:22 Aerobic Blood Culture - Preliminary Blood No growth in Aerobic bottle after 48 hours. Anaerobic Blood Culture - Preliminary No growth in Anaerobic bottle after 48 hours. 11/02/21 19:28 Urine Culture - Preliminary Urine,Clean Catch Pseudomonas aeruginosa Electrocardiogram Date: 11/02/21 DICTATED BY:Chriss Maradiaga MD Test Reason : Blood Pressure : / mmHG Vent. Rate : 090 BPM Atrial Rate : 090 BPM P-R Int : 150 ms QRS Dur : 086 ms QT Int : 380 ms P-R-T Axes : 044 -31 055 degrees QTc Int : 464 ms Sinus rhythm with frequent Premature ventricular complexes Possible Left atrial enlargement Left axis deviation Abnormal ECG When compared with ECG of 11-NOV-2015 09:51, Premature ventricular complexes are now Present QRS axis Shifted left Confirmed by Chriss Maradiaga ([id number]) on 11/03/2021 7:48:01 AM Chest X-Ray Date: 11/02/21 (1) Acute confusion: Plan: Acute metabolic encephalopathy History of severe multiple sclerosis with paraparesis and neurogenic bladder and has been wheelchair-bound Recently intrathecal baclofen dose has been decreased from 9 to 1 mcg/day and she complains to have more pain and noted to have acute UTI Her acute confusion is likely secondary to infection and is complicated by more pain Her confusion has improved to her baseline No more confusion
[2021-11-05] MEDS ORDERED: DIATRIZOATE MEGLUMINE 30% 100ML VIAL INSTIL ONE (10:10)
--- NOTE | 2021-11-05 10:21 | Operative Report ---
[facility] Post Operative Report Pre & Post Diagnosis Operation Date: 11/05/21 14:00 Pre-Op Diagnosis: Left Ureteral Stone, neurogenic bladder with urinary retention Post-Op Diagnosis: Left Ureteral Stone, neurogenic bladder with urinary retention I identified the patient and participated in the time-out.: Yes Procedure Operation Date: 11/05/21 14:00 Actual Procedures p Cystoscopy, Left Stent Placement(Left) - Leon Gonzalez MD s Subrapubic Cystostomy(Not Applicable) - Leon Gonzalez MD Surgeon Leon Gonzalez MD Social Security Benefits Interviewer none Estimated Blood Loss 5 Findings Consistent with Post-Op Diagnosis Specimens Urine from left kidney for culture Drains 6 Iranian by 24 cm double-J ureteral stent in the left ureter Anesthesia Type MAC Complications None Disposition Disposition: Recovery Room Indications This is a 56-year-old female who presented to the hospital with altered mental status. On CT scan she was found to have a stone in the bladder as well as a s tone in the mid left ureter with hydronephrosis in the left kidney. Due to history of multiple sclerosis, she also has neurogenic bladder managed with a chronic indwelling suprapubic tube for urinary retention. Urine culture was positive for Pseudomonas. She is being brought to the OR today for cystoscopy and left ureteral stent placement to maximally decompress the left kidney, and suprapubic tube will be exchanged at the time of the procedure. Description of Procedure The patient was identified in the holding area and informed consent was c onfirmed. They were marked on the left side, then were taken to the operating room where general anesthesia was initiated. They were placed in the dorsal lithotomy position with all pressure points appropriately padded. A preoperative timeout was performed. Her previous suprapubic tube was removed. Her abdomen was prepped with Betadine and the new 22 Iranian catheter was inserted per the suprapubic tract and advanced to the bladder. The balloon was then inflated with 10 mL of normal saline and the catheter was attached to gravity drainage. Catheter was clamped for the remainder of the procedure. Her perineum and genitals were then prepped and draped in the usual sterile fashion. A well-lubricated cystoscope was inserted per urethra and panendoscopy was performed. The urethra was normal with no strictures or mucosal abnormalities. Her bladder was small in size. No tumors were appreciated. The stone seen on CT scan were easily identified within the lumen of the bladder. The suprapubic catheter appeared to be in good position. Ureteral orifices were identified in orthotopic position bilaterally. The left ureteral orifice was identified and cannulated with a 5 Iranian open- ended catheter. A retrograde pyelogram was performed demonstrating the distal ureter was normal in course and caliber, but there was an abrupt transition point where there was minimal contrast that went past, suggesting this is the location of the stone. A 0.038" ZIPwire was advanced to the level of the kidney under fluoroscopic guidance. The open-ended catheter was advanced over the wire and a retrograde pyelogram was performed to confirm that it was in the renal pelvis. Hydronephrotic drip was appreciated from the open-ended catheter. A sample of this was collected and sent for urine culture, labeled as urine from left kidney. There was some hydronephrosis on this side, but no other obvious filling defects. The wire was replaced to the kidney. Over the wire, a 6 Iranian x 24 centimeter double-J ureteral stent was advanced. When the wire was removed, the proximal curl was visualized in the kidney with x-ray, and the distal curl visualized in the bladder with the cystoscope. At this point the bladder was drained and all instrumentation was removed. The patient was then awakened from anesthesia and was brought to the PACU in stable condition. I attest to the content of the Intraoperative Record and any orders documented therein. Any exceptions are noted below.
--- NOTE | 2021-11-05 10:38 | Fluoroscopy Report ---
FL retrograde includes kub CLINICAL HISTORY: Left retrograde exam with ureteral stent insertion. COMPARISON STUDY: CT of the abdomen and pelvis November 03, 2021. FLUOROSCOPY TIME: 16 seconds. FLUOROSCOPIC IMAGES: 4 FINDINGS: Fluoroscopy was provided during cystoscopy and left retrograde exam with placement of a lef t ureteral stent. IMPRESSION: Fluoroscopy provided during left retrograde exam with placement of a left ureteral stent . ACT 112: Negative or not required by law. Electronically signed by: Sekou Blount M.D. 11/05/2021 10:36 AM
[2021-11-05] MEDS ORDERED: PIPERACILL/TAZOBAC CONSULT ACTIVE PRN (11:39)
[2021-11-05] MEDS ORDERED: PIPERACILLIN/TAZOBACTAM 4.5 GM in DEXTROSE 5% 100 ML IV ONE (11:45)
--- NOTE | 2021-11-05 13:07 | Orthopedic Consultation ---
Date of Consultation November 05, 2021 Assessment & Plan (1) Lumbar compression fracture: At this time the patient has increased back pain from her baseline but believes is from lying flat today. In the hospital she will continue with pain control measures. She will follow up with pain management as well. If the pain persists we can see her as an outpatient may perhaps order an MRI to see if she has a delayed or nonunion. She should follow-up with our office in approximately 2 weeks. She does not at this point meet the criteria for any type of surgical intervention or bracing. History of Present Illness Attending Physician: Edison Romero MD History of Present Illness Patient is a pleasant 56-year-old female who presented to the emergency room wit h confusion, increasing back pain, as well as fever. She is noted to have urosepsis and had a urinary stent placed. She also has a history significant for progressive MS and uses a wheelchair. She has had chronic back pain and has had an intrathecal pump placed through pain management. Were consulted to review her films due to cupping of the L2 inferior endplate. Per the patient today she has increased back pain because she had to lie flat for CT scan. She did have a fall when she was trying to boost her self in her wheelchair but she seemed to injure her legs more than any increased back pain. She denies any other numbness or tingling out of her baseline. Allergies Allergy/AdvReac Type Severity Reaction Status Date / Time No Known Allergies Allergy ` Verified 11/02/21 19:05 Home Medications Medication Instructions Recorded Confirmed Type ascorbic acid (vitamin C) 500 mg 500 mg PO DAILY 08/26/18 11/02/21 History tablet calcium carbonate 160 mg calcium 400 mg PO BID tab 08/26/18 11/02/21 History (400 mg) chewable tablet lorazepam 1 mg tablet (Ativan) 1 mg PO HS tab 08/26/18 11/02/21 History baclofen pump INTRATHECAL 11/06/19 10/30/21 History siponimod 2 mg tablet (Mayzent) 2 mg PO DAILY tab 04/17/20 11/03/21 History furosemide 40 mg tablet 40 mg PO DAILY 05/06/21 11/02/21 History simvastatin 20 mg tablet 20 mg PO DAILY 05/06/21 11/02/21 History baclofen 10 mg tablet 10 mg PO TID #30 tab 10/15/21 11/02/21 Rx Patient History Medical History (Updated 11/05/21 @ 09:00 by Judah Gould MD) Acute confusion Lumbar compression fracture L2-subacute 11/02/2021 CT scan Multiple sclerosis Presence of intrathecal pump since 2008 Sepsis Surgical History Chronic suprapubic catheter 2012 H/O section S/P insertion of intrathecal pump 2008 Social History Smoking Status: Never smoker Hx Alcohol Use: No Hx Substance Use: No Preferred Language: Wolof Communication Ability: Effective Visual Impairment: No Limitations Hearing Ability: Normal Language And Literature Division Chair Required: No Beliefs That Will Affect Care: None marital status: Current Living Situation: Spouse current occupational status: retired current occupation: [employer] How many Children do You have: 0 Feels Safe at Home: Yes Assistive Devices: Wheelchair Physical Exam Physical Exam: On exam she is alert and oriented. She answers questions appropriately. She has clear speech. There is some bruising the dorsum both feet. She has minimal strength in her lower extremities. Logrolling produces back pain. Her abdomen soft nontender calves are supple nontender. Results & Data ([facility]) Vital Signs (Past 12 Hours) Vital Signs Temp Pulse Pulse Pulse Resp BP Pulse Ox 11/05/21 11:44 36.9 C 68 19 132/84 97 11/05/21 10:50 36.2 C L 71 19 143/81 H 98 11/05/21 10:40 71 17 149/82 H 96 11/05/21 10:30 70 19 145/76 H 98 11/05/21 10:22 36.9 C 70 24 138/78 97 11/05/21 09:17 36.9 C 77 18 153/83 H 97 11/05/21 07:12 37.3 C 71 18 122/78 96 11/05/21 03:46 37 C 80 18 109/[address] scan of the lumbar spine performed today reveals several areas where there are Schmorl's nodes in the superior endplate of L4 and L3. There is cupping of the inferior endplate of L2. There were no significant retropulsed fragments no significant canal compromise. The cupping of L2 is less than 10% of the an terior height.
--- NOTE | 2021-11-05 13:51 | CT Scan Report ---
CT OF THE LUMBAR SPINE CLINICAL HISTORY: Back pain. COMPARISON STUDY: CT of the abdomen and pelvis November 03, 2021. TECHNIQUE: Helical axial images of the lumbar spine were obtained. Sagittal and coronal reconstruct ions were viewed. Automated exposure control was utilized for the study. A dose lowering technique was utilized adhering to the principles of ALARA. FINDINGS: For purposes of numbering on this exam, the L5-S1 disc space is assigned to axial image 291 of 399. Intrathecal catheter is partially imaged. Visualized portions of the catheter are intact. Bi lateral renal calculi are noted. The largest calculus is an 8 mm calculus within the upper pole of th e right kidney. Left hydronephrosis has resolved following stent placement. A 6 mm proximal left uret eral calculus/fragment is present. Gas within the left collecting system is from recent instrumentati on. No acute lumbar spine fracture is noted. There is a mild compression fracture of the inferior end plate of L2 with 30% loss of vertebral body height. There is no retropulsion at this level. There are mild compression fractures of the superior endplates of L3 and L4. No retropulsion is noted. No susp icious osseous lesions are noted. The appearance of the lumbar spine fractures is unchanged since abd ominal CT of November 03, 2021. There is moderate multilevel facet arthrosis within the lumbar spine. There is mild multilevel degenerative disc disease. IMPRESSION: 1. Mild compression fractures of the inferior endplate of L2 and superior endplates of L3 and L4. The L2 and L3 compression fractures are likely subacute. The L4 fracture is likely chronic. No retropuls ion. 2. No acute lumbar spine fracture. 3. Moderate multilevel facet arthrosis and mild multilevel degenerative disc disease within the lumba r spine. 4. Partially visualized intrathecal catheter. Visualized portions intact. 5. Interval left ureteral stent placement with resolution of hydronephrosis. 6 mm proximal left urete ral calculus/fragment. Bilateral nephrolithiasis. ACT 112: Negative or not required by law. Electronically signed by: Sekou Blount M.D. 11/05/2021 1:49 PM
--- NOTE | 2021-11-05 14:55 | Anesthesiology Progress Note ---
Date of Service November 05, 2021 Anesthesia Post Procedure Vital Signs Vital Signs: Temp Pulse Pulse Pulse Pulse Resp BP 11/05/21 11:44 36.9 C 68 19 132/84 11/05/21 10:50 36.2 C L 71 19 143/81 H 11/05/21 10:40 71 17 149/82 H 11/05/21 10:30 70 19 145/76 H 11/05/21 10:22 36.9 C 70 24 138/78 11/05/21 09:17 36.9 C 77 18 153/83 H 11/05/21 07:12 37.3 C 71 18 122/78 11/05/21 03:46 37 C 80 18 109/60 11/04/21 23:10 36.9 C 73 18 116/63 11/04/21 22:20 71 11/04/21 19:18 37.1 C 82 18 124/73 11/04/21 15:01 37.3 C 71 16 110/72 Pulse Ox 11/05/21 11:44 97 11/05/21 10:50 98 11/05/21 10:40 96 11/05/21 10:30 98 11/05/21 10:22 97 11/05/21 09:17 97 11/05/21 07:12 96 11/05/21 03:46 97 11/04/21 23:10 99 11/04/21 22:20 11/04/21 19:18 96 11/04/21 15:01 97 Pain Intensity Back: Pain Intensity: 8 Transfer of Care Handoff Completed per policy Notes Mental Status: alert / awake / arousable and participated in evaluation Patient Amnestic to Procedure: Yes Nausea / Vomiting: adequately controlled Pain: adequately controlled Airway Patency, RR, SpO2: stable & adequate BP & HR: stable & adequate Hydration State: stable & adequate Anesthetic Complications: no major complications apparent and Pt Satisfied with anesthetic care
[2021-11-05] MEDS: PIPERACILLIN/TAZOBACTAM 3.375 GM in DEXTROSE 5% 100 ML IV SCH (18:05)
[2021-11-05] MEDS: ACETAMINOPHEN 325 MG TAB PO PRN (18:07)
--- NOTE | 2021-11-05 18:54 | Hospitalist Progress Note ---
Date of Service November 05, 2021 Assessment & Plan (1) Acute confusion: Plan: Acute metabolic encephalopathy H/O severe multiple sclerosis with paraparesis and neurogenic bladder and has been wheelchair-bound Confusion likely secondary to UTI Medications could be contributing as well Mental status back to baseline (2) UTI (urinary tract infection) due to urinary indwelling catheter: Plan: Complicated urinary tract infection H/O neurogenic bladder with urine retention, left ureteral stone Urine Cx: Pseudomonas, Enterococcus Repeat urine culture pending Continue Zosyn>>Cefepime>>Zosyn Left ureteral stone Obstructive uropathy S/P cystoscopy, left stent placement, suprapubic cystostomy Appreciate urology input Lumbar compression fracture (L2) Appreciate orthopedics input Pain control Conservative management Needs follow-up with orthopedics upon discharge (3) Multiple sclerosis: Plan: severe multiple sclerosis with paraparesis and neurogenic bladder Wheelchair-bound S/P Intrathecal baclofen pump Her pump medication was changed to 1 mcg from 9 mcg/day on 30 October Appreciate pain management input Pump flow adjusted as before (4) Elevated LFTs: Plan: Likely drug-induced liver injury secondary to Mayzet Monitor LFTs Appreciate GI input Likely plan for outpatient endoscopic ultrasound Avoid hepatotoxic agents as able DVT Px: Lovenox SQ Admission and Anticipated Discharge Date Admission Date: November 02, 2021 Subjective Patient is seen and examined at bedside States having chronic back pain Had ureteral stent placement this morning Denies any chest pain, shortness of breath, dizziness, nausea, abdominal pain Offers no other complaints Review of Systems Review of Systems: All systems reviewed & are unremarkable except as noted in Subjective Physical Exam Physical Exam: Physical Exam: Vitals signs as noted above General Appearance:Moderately built and nourished, no apparent distress Head: normocephalic, Atraumatic Eyes: normal inspection, EOMI Neck: supple, Trachea midline Respiratory/Chest: Normal breath sounds, CTA Cardiovascular: S1, S2, No murmur Abdomen/GI:Soft, Non tender, Bowel sounds present Extremities/Musculoskeletal:normal inspection, ankle deformity, B/L LE edema Neurologic/Psych:AAOX3, + Paraplegia B/L LE, Left UE 4/5 Skin: normal color, warm Results & Data Results & Data ([facility]) Vital Signs (Past 12 Hours) Vital Signs Temp Pulse Pulse Pulse Pulse Resp BP 11/05/21 15:57 73 11/05/21 15:48 37.7 C H 83 20 127/78 11/05/21 11:44 36.9 C 68 19 132/84 11/05/21 10:50 36.2 C L 71 19 143/81 H 11/05/21 10:40 71 17 149/82 H 11/05/21 10:30 70 19 145/76 H 11/05/21 10:22 36.9 C 70 24 138/78 11/05/21 09:17 36.9 C 77 18 153/83 H 11/05/21 07:12 37.3 C 71 18 122/78 Pulse Ox 11/05/21 15:57 11/05/21 15:48 94 11/05/21 11:44 97 11/05/21 10:50 98 11/05/21 10:40 96 11/05/21 10:30 98 11/05/21 10:22 97 11/05/21 09:17 97 11/05/21 07:12 96 Laboratory Results BMP 11/05/21 06:33 Sodium 140 Potassium 3.7 Chloride 112 H Carbon Dioxide 22 BUN 13 Creatinine 0.62 Calcium 8.9 Liver Function 11/05/21 Range/Units 06:33 Total Bilirubin 0.8 (0.2-1) mg/dl AST 73 H (15-37) U/L ALT 145 H (12-78) Alkaline Phosphatase 152 H (45-117) U/L Albumin 2.2 L (3.4-5.0) gm/dl
[2021-11-05] MEDS: LORazepam 1 MG TAB PO SCH (21:53)
[2021-11-06] MEDS: PIPERACILLIN/TAZOBACTAM 3.375 GM in DEXTROSE 5% 100 ML IV SCH ×3 (01:43→17:20)
[2021-11-06] MEDS: HYDROmorphone INJ 0.5 MG/0.5 ML SYR IV PRN ×2 (01:46→05:33)
[2021-11-06] MEDS: ENOXAPARIN INJ 40 MG/0.4 ML SYR SQ SCH (05:33)
[2021-11-06] MEDS: HEPARIN 100 UNIT/ML 5ML FLUSH FLUSH PRN ×2 (05:34→22:02)
[2021-11-06] MEDS: ACETAMINOPHEN 325 MG TAB PO PRN ×3 (08:05→22:27)
[2021-11-06] MEDS: [UNRECOGNIZED DRUG - OTHER] PO SCH (08:06)
[2021-11-06] MEDS: CALCIUM CARBONATE 1250MG TAB PO SCH ×2 (08:06→22:01)
[2021-11-06] MEDS: ASCORBIC ACID 500 MG TAB PO SCH (08:06)
[2021-11-06] MEDS: SIMVASTATIN 20 MG TAB PO SCH (08:07)
[2021-11-06 08:41] LABS: Hematocrit (blood only) 36.2 % (37-47); Hemoglobin 12.2 g/dL (12.0-16.0); Mean Corpuscular Hemoglobin 31.6 pg (25-34); Mean Corpuscular Hgb Conc 33.7 g/dL (32-36); Mean Corpuscular Volume 93.8 fL (80-100); Mean Platelet Volume 11.7 fL (7.4-10.4); Platelet Count 192 K/uL (130-400); RDW Coefficient of Variation 15.1 % (11.5-14.5); RDW Standard Deviation 51.6 fL (36.4-46.3); Red Blood Count 3.86 M/uL (4.2-5.4); White Blood Count 8.18 K/uL (4.8-10.8)
[2021-11-06 09:16] LABS: Albumin Level 2.3 gm/dl (3.4-5.0); BUN Creatinine Ratio 12.8 (10-20); Creatinine Clr Calc Pharmacy 71.2 ml/min; Est GFR (African American) 106.7 ml/min; Est GFR (Non-African American) 92.1 ml/min; Potassium 3.2 mmol/L (3.5-5.1)
[2021-11-06 09:18] LABS: Albumin Globulin Ratio 0.6 (0.9-2); Bilirubin,Total 1.1 mg/dl (0.2-1); Globulin 3.7 gm/dl (2.5-4.0)
[2021-11-06] MEDS ORDERED: POTASSIUM CHLORIDE CRTAB 20 MEQ TABCR PO ONE (10:00)
--- NOTE | 2021-11-06 14:51 | Urology Progress Note ---
Date of Service November 06, 2021 Assessment & Plan (1) Left ureteral stone: (2) Bladder stone: (3) Chronic suprapubic catheter: (4) S/P ureteral stent placement: Plan: - Pt POD#1 s/p cystoscopy, left stent placement, suprapubic cystostomy with Dr. Gonzalez - Doing well, progressing as expected - Afebrile, lab work reviewed - creatinine 0.73, WBC 8.18 - UC&S 11/02 Pseudomonas and Enterococcus, BCx NGTD, kidney aspirate prelim no growth - On IV Zosyn per primary team - Recommend add coverage for Enterococcus - Tolerating left ureteral stent without bother - Continue supportive care, antibiotics and management per primary service - Okay to d/c from perspective when medically stable - Recommend d/c with appropriate PO antibiotics, Tamsulosin, and PRN Pyridium, Oxybutynin, pain medication for stent - Expected clinical course reviewed, all questions answered - Will arrange outpatient follow-up with our service for definitive stone management Thank you for allowing us to participate in the acute care of Ms. Adams. Please reconsult us with additional questions, concerns or changes in patient status. Admission and Anticipated Discharge Date Admission Date: November 02, 2021 Supervising Physician Co-Signing Physician Notes Discussed patient with LAWRENCE. Agree with plan. Subjective Patient seen and examined at bedside. She is awake, alert and sitting up in bed. No acute issues overnight. No abdominal, suprapubic or flank pain. No dysuria, has noted mild hematuria and urgency post-op. SP tube intact, patent and draining yellow urine with blood-tinged sediment. No fever, chills, nausea or vomiting. Offers no complaints at present. Review of Systems Constitutional: as per Subjective / HPI Gastrointestinal: as per Subjective / HPI Genitourinary: as per Subjective / HPI Physical Exam Constitutional: well developed and well nourished; no acute distress and not ill appearing Respiratory: normal respiratory effort and able to speak in complete sentences; no respiratory distress and no labored breathing Gastrointestinal (Abdomen): Inspection/Auscultation: abdomen normal to inspection; abdomen not distended Neurologic: moves all extremities and awake Psychiatric: Orientation: alert and oriented x 3 Genitourinary: SP tube cath intact, patent and draining yellow urine with blood- tinged sediment Results & Data ([facility]) Vital Signs (Past 12 Hours) Vital Signs Temp Pulse Resp BP BP Pulse Ox 11/06/21 11:15 37 C 85 18 112/74 96 11/06/21 07:26 37.2 C 88 18 131/79 95 11/06/21 04:18 36.8 C 77 16 115/72 95 PG Care Time/CCT Total # of Minutes Spent Total Time Spent with Patient: Total time spent is greater than 50% in coordination of care (as documented) at patient's floor/unit and/or counseling patient: Coding Level of Care Code 19126 Subseq Hosp Care Lvl 2 Diagnoses Left ureteral stone N20.1 Bladder stone N21.0 Chronic suprapubic catheter Z93.59 S/P ureteral stent placement Z96.0
--- NOTE | 2021-11-06 20:03 | Hospitalist Progress Note ---
Date of Service November 06, 2021 Assessment & Plan (1) Acute confusion: Plan: Acute metabolic encephalopathy H/O severe multiple sclerosis with paraparesis and neurogenic bladder and has been wheelchair-bound Confusion likely secondary to UTI Medications could be contributing as well Mental status back to baseline (2) UTI (urinary tract infection) due to urinary indwelling catheter: Plan: Complicated urinary tract infection H/O neurogenic bladder with urine retention, left ureteral stone Urine Cx: Pseudomonas, Enterococcus Enterococcus likely contaminant Repeat urine culture: No growth Continue Zosyn>>Cefepime>>Zosyn Discussed with Elsie Hayes : Recommends 2 week course of IV Zosyn Family requesting rehab placement if qualifies Left ureteral stone Obstructive uropathy S/P cystoscopy, left stent placement, suprapubic cystostomy Appreciate urology input Needs follow-up with urology upon discharge Lumbar compression fracture (L2) Appreciate orthopedics input Pain control Conservative management Needs follow-up with orthopedics upon discharge Hypokalemia Replace electrolytes as needed (3) Multiple sclerosis: Plan: severe multiple sclerosis with paraparesis and neurogenic bladder Wheelchair-bound S/P Intrathecal baclofen pump Her pump medication was changed to 1 mcg from 9 mcg/day on 30 October Appreciate pain management input Pump flow adjusted as before (4) Elevated LFTs: Plan: Likely drug-induced liver injury secondary to [place] Monitor LFTs Appreciate GI input Likely plan for outpatient endoscopic ultrasound Avoid hepatotoxic agents as able DVT Px: Lovenox SQ Admission and Anticipated Discharge Date Admission Date: November 02, 2021 Subjective Patient is seen and examined at bedside Patient had minimal hematuria Reports chronic leg pain Denies any chest pain, shortness of breath, dizziness, nausea, abdominal pain Review of Systems Review of Systems: All systems reviewed & are unremarkable except as noted in Subjective Physical Exam Physical Exam: Physical Exam: Vitals signs as noted above General Appearance:Moderately built and nourished, no apparent distress Head: normocephalic, Atraumatic Eyes: normal inspection, EOMI Neck: supple, Trachea midline Respiratory/Chest: Normal breath sounds, CTA Cardiovascular: S1, S2, No murmur Abdomen/GI:Soft, Non tender, Bowel sounds present Extremities/Musculoskeletal:normal inspection, ankle deformity, B/L LE edema Neurologic/Psych:AAOX3, + Paraplegia B/L LE, Left UE 4/5 Skin: normal color, warm Results & Data Results & Data ([facility]) Vital Signs (Past 12 Hours) Vital Signs Temp Pulse Pulse Resp BP Pulse Ox 11/06/21 19:24 37.1 C 91 H 16 108/73 95 11/06/21 15:21 36.9 C 102 H 18 112/72 95 11/06/21 15:16 103 H 11/06/21 14:56 77 11/06/21 11:15 37 C 85 18 112/74 96 Laboratory Results Short CBC 11/06/21 Range/Units 08:24 WBC 8.18 (4.8-10.8) K/uL Hgb 12.2 (12.0-16.0) g/dL Hct 36.2 L (37-47) % Plt Count 192 (130-400) K/uL BMP 11/06/21 08:24 Sodium 138 Potassium 3.2 L Chloride 107 Carbon Dioxide 25 BUN 9 Creatinine 0.73 Glucose 142 H Calcium 9.0 Liver Function 11/06/21 Range/Units 08:24 Total Bilirubin 1.1 H (0.2-1) mg/dl AST 33 (15-37) U/L ALT 108 H (12-78) Alkaline Phosphatase 172 H (45-117) U/L Albumin 2.3 L (3.4-5.0) gm/dl
[2021-11-06] MEDS: LORazepam 1 MG TAB PO SCH (22:01)
[2021-11-07] MEDS: PIPERACILLIN/TAZOBACTAM 3.375 GM in DEXTROSE 5% 100 ML IV SCH ×3 (01:45→17:38)
[2021-11-07] MEDS: ACETAMINOPHEN 325 MG TAB PO PRN ×2 (03:16→10:16)
[2021-11-07] MEDS: ENOXAPARIN INJ 40 MG/0.4 ML SYR SQ SCH (05:50)
[2021-11-07] MEDS: HEPARIN 100 UNIT/ML 5ML FLUSH FLUSH PRN ×4 (05:50→22:35)
[2021-11-07] MEDS: HYDROmorphone INJ 0.5 MG/0.5 ML SYR IV PRN ×2 (07:37→21:28)
[2021-11-07] MEDS: ASCORBIC ACID 500 MG TAB PO SCH (07:38)
[2021-11-07] MEDS: CALCIUM CARBONATE 1250MG TAB PO SCH ×2 (07:38→21:28)
[2021-11-07] MEDS: SIMVASTATIN 20 MG TAB PO SCH (07:38)
[2021-11-07] MEDS: [UNRECOGNIZED DRUG - OTHER] PO SCH (07:38)
[2021-11-07 09:16] LABS: Albumin Level 2.1 gm/dl (3.4-5.0); BUN Creatinine Ratio 16.3 (10-20); Calcium 8.7 mg/dl (8.5-10.1); Creatinine Clr Calc Pharmacy 78.7 ml/min; Est GFR (African American) 114.5 ml/min; Est GFR (Non-African American) 98.8 ml/min; Potassium 3.5 mmol/L (3.5-5.1)
[2021-11-07 09:18] LABS: Albumin Globulin Ratio 0.6 (0.9-2); Bilirubin,Total 0.7 mg/dl (0.2-1); Globulin 3.6 gm/dl (2.5-4.0); Total Protein 5.7 gm/dl (6.4-8.2)
--- NOTE | 2021-11-07 18:31 | Hospitalist Progress Note ---
Date of Service November 07, 2021 Assessment & Plan (1) Acute confusion: Plan: Acute metabolic encephalopathy H/O severe multiple sclerosis with paraparesis and neurogenic bladder and has been wheelchair-bound Confusion likely secondary to UTI Medications could be contributing as well Mental status back to baseline Resolved (2) UTI (urinary tract infection) due to urinary indwelling catheter: Plan: Complicated urinary tract infection H/O neurogenic bladder with urine retention, left ureteral stone Urine Cx: Pseudomonas, Enterococcus Enterococcus likely contaminant Repeat urine culture: No growth Continue Zosyn>>Cefepime>>Zosyn Discussed with Elsie Hayes : Recommends 2 week course of IV Zosyn Plan to discharge when placement available Left ureteral stone Obstructive uropathy S/P cystoscopy, left stent placement, suprapubic cystostomy Appreciate urology input Needs follow-up with urology upon discharge Lumbar compression fracture (L2) Appreciate orthopedics input Pain control Conservative management Needs follow-up with orthopedics upon discharge Hypokalemia Replace electrolytes as needed (3) Multiple sclerosis: Plan: severe multiple sclerosis with paraparesis and neurogenic bladder Wheelchair-bound S/P Intrathecal baclofen pump Her pump medication was changed to 1 mcg from 9 mcg/day on 30 October Appreciate pain management input Pump flow adjusted as before (4) Elevated LFTs: Plan: Likely drug-induced liver injury secondary to [place] Monitor LFTs Appreciate GI input Likely plan for outpatient endoscopic ultrasound Avoid hepatotoxic agents as able DVT Px: Lovenox SQ Admission and Anticipated Discharge Date Admission Date: November 02, 2021 Subjective Patient is seen and examined at bedside Hematuria resolved Chronic back pain remains unchanged Waiting for placement Denies any chest pain, shortness of breath, dizziness, nausea, abdominal pain Review of Systems Review of Systems: All systems reviewed & are unremarkable except as noted in Subjective Physical Exam Physical Exam: Physical Exam: Vitals signs as noted above General Appearance:Moderately built and nourished, no apparent distress Head: normocephalic, Atraumatic Eyes: normal inspection, EOMI Neck: supple, Trachea midline Respiratory/Chest: Normal breath sounds, CTA Cardiovascular: S1, S2, No murmur Abdomen/GI:Soft, Non tender, Bowel sounds present Extremities/Musculoskeletal:normal inspection, ankle deformity, B/L LE edema Neurologic/Psych:AAOX3, + Paraplegia B/L LE, Left UE 4/5 Skin: normal color, warm Results & Data Results & Data ([facility]) Vital Signs (Past 12 Hours) Vital Signs Temp Pulse Pulse Resp BP Pulse Ox 11/07/21 15:25 36.7 C 90 18 128/77 97 11/07/21 15:00 89 11/07/21 11:33 36.9 C 69 18 123/80 98 11/07/21 08:00 79 11/07/21 07:41 37.0 C 81 18 127/83 95 Laboratory Results [facility] 11/07/21 08:21 Sodium 142 Potassium 3.5 Chloride 112 H Carbon Dioxide 27 BUN 11 Creatinine 0.66 Glucose 101 H Calcium 8.7 Liver Function 11/07/21 Range/Units 08:21 Total Bilirubin 0.7 (0.2-1) mg/dl AST 56 H (15-37) U/L ALT 125 H (12-78) Alkaline Phosphatase 180 H (45-117) U/L Albumin 2.1 L (3.4-5.0) gm/dl
[2021-11-07] MEDS: LORazepam 1 MG TAB PO SCH (21:28)
[2021-11-08] MEDS: PIPERACILLIN/TAZOBACTAM 3.375 GM in DEXTROSE 5% 100 ML IV SCH ×3 (02:19→17:28)
[2021-11-08] MEDS: ENOXAPARIN INJ 40 MG/0.4 ML SYR SQ SCH (06:29)
[2021-11-08] MEDS: HEPARIN 100 UNIT/ML 5ML FLUSH FLUSH PRN ×2 (06:29→08:37)
[2021-11-08] MEDS: [UNRECOGNIZED DRUG - OTHER] PO SCH (08:04)
[2021-11-08] MEDS: CALCIUM CARBONATE 1250MG TAB PO SCH ×2 (08:05→21:23)
[2021-11-08] MEDS: ASCORBIC ACID 500 MG TAB PO SCH (08:05)
[2021-11-08] MEDS: SIMVASTATIN 20 MG TAB PO SCH (08:05)
[2021-11-08 08:32] LABS: Hematocrit (blood only) 34.8 % (37-47); Hemoglobin 11.3 g/dL (12.0-16.0); Mean Corpuscular Hemoglobin 30.6 pg (25-34); Mean Corpuscular Hgb Conc 32.5 g/dL (32-36); Mean Corpuscular Volume 94.3 fL (80-100); Mean Platelet Volume 11.2 fL (7.4-10.4); Platelet Count 261 K/uL (130-400); RDW Coefficient of Variation 15.3 % (11.5-14.5); Red Blood Count 3.69 M/uL (4.2-5.4); White Blood Count 7.22 K/uL (4.8-10.8)
[2021-11-08] MEDS: ACETAMINOPHEN 325 MG TAB PO PRN (09:10)
[2021-11-08 09:13] LABS: Albumin Globulin Ratio 0.6 (0.9-2); Albumin Level 2.2 gm/dl (3.4-5.0); BUN Creatinine Ratio 14.2 (10-20); Bilirubin,Total 0.6 mg/dl (0.2-1); Calcium 8.8 mg/dl (8.5-10.1); Creatinine Clr Calc Pharmacy 82.8 ml/min; Est GFR (African American) 108.5 ml/min; Est GFR (Non-African American) 93.6 ml/min; Globulin 3.7 gm/dl (2.5-4.0); Potassium 3.2 mmol/L (3.5-5.1); Total Protein 5.9 gm/dl (6.4-8.2)
[2021-11-08] MEDS ORDERED: POTASSIUM CHLORIDE CRTAB 20 MEQ TABCR PO ONE (09:30)
--- NOTE | 2021-11-08 18:04 | Hospitalist Progress Note ---
Date of Service November 08, 2021 Assessment & Plan (1) Acute confusion: Plan: Acute metabolic encephalopathy H/O severe multiple sclerosis with paraparesis and neurogenic bladder and has been wheelchair-bound Confusion likely secondary to UTI Medications could be contributing as well Mental status back to baseline Resolved (2) UTI (urinary tract infection) due to urinary indwelling catheter: Plan: Complicated urinary tract infection H/O neurogenic bladder with urine retention, left ureteral stone Urine Cx: Pseudomonas, Enterococcus Enterococcus likely contaminant Continue Zosyn>>Cefepime>>Zosyn Discussed with Elsie Hayes : Recommends 2 week course of IV Zosyn Plan to discharge when placement available Repeat urine culture growing Pseudomonas and Enterococcus (less colonies than prior) Continue current management Left ureteral stone Obstructive uropathy S/P cystoscopy, left stent placement, suprapubic cystostomy Appreciate urology input Needs follow-up with urology upon discharge Lumbar compression fracture (L2) Appreciate orthopedics input Pain control Conservative management Needs follow-up with orthopedics upon discharge Hypokalemia Replace electrolytes as needed (3) Multiple sclerosis: Plan: severe multiple sclerosis with paraparesis and neurogenic bladder Wheelchair-bound S/P Intrathecal baclofen pump Her pump medication was changed to 1 mcg from 9 mcg/day on 30 October Appreciate pain management input Pump flow adjusted as before (4) Elevated LFTs: Plan: Likely drug-induced liver injury secondary to [place] Monitor LFTs Appreciate GI input Likely plan for outpatient endoscopic ultrasound Avoid hepatotoxic agents as able DVT Px: Lovenox SQ Disposition Rehab when arranged Admission and Anticipated Discharge Date Admission Date: November 02, 2021 Subjective Patient is seen and examined at bedside Patient complains of back pain overnight but improved this morning Updated patient's family over the phone Waiting for rehab placement No recurrence of hematuria Denies any chest pain, shortness of breath, dizziness, nausea, abdominal pain Review of Systems Review of Systems: All systems reviewed & are unremarkable except as noted in Subjective Physical Exam Physical Exam: Physical Exam: Vitals signs as noted above General Appearance:Moderately built and nourished, no apparent distress Head: normocephalic, Atraumatic Eyes: normal inspection, EOMI Neck: supple, Trachea midline Respiratory/Chest: Normal breath sounds, CTA Cardiovascular: S1, S2, No murmur Abdomen/GI:Soft, Non tender, Bowel sounds present Extremities/Musculoskeletal:normal inspection, ankle deformity, B/L LE edema Neurologic/Psych:AAOX3, + Paraplegia B/L LE, Left UE 4/5 Skin: normal color, warm Results & Data Results & Data ([facility]) Vital Signs (Past 12 Hours) Vital Signs Temp Pulse Pulse Resp BP BP Pulse Ox 11/08/21 16:11 37.0 C 95 H 20 131/80 96 11/08/21 15:30 95 H 11/08/21 11:16 37.1 C 89 20 127/83 96 11/08/21 10:04 74 11/08/21 06:47 36.9 C 89 18 121/75 94 Laboratory Results Short CBC 11/08/21 Range/Units 08:22 WBC 7.22 (4.8-10.8) K/uL Hgb 11.3 L (12.0-16.0) g/dL Hct 34.8 L (37-47) % Plt Count 261 (130-400) K/uL BMP 11/08/21 08:22 Sodium 141 Potassium 3.2 L Chloride 110 H Carbon Dioxide 26 BUN 10 Creatinine 0.72 Glucose 117 H Calcium 8.8 Liver Function 11/08/21 Range/Units 08:22 Total Bilirubin 0.6 (0.2-1) mg/dl AST 89 H (15-37) U/L ALT 158 H (12-78) Alkaline Phosphatase 200 H (45-117) U/L Albumin 2.2 L (3.4-5.0) gm/dl
[2021-11-08] MEDS: LORazepam 1 MG TAB PO SCH (21:23)
[2021-11-09] MEDS: PIPERACILLIN/TAZOBACTAM 3.375 GM in DEXTROSE 5% 100 ML IV SCH ×3 (02:02→17:29)
[2021-11-09] MEDS: ENOXAPARIN INJ 40 MG/0.4 ML SYR SQ SCH (06:18)
[2021-11-09] MEDS: CALCIUM CARBONATE 1250MG TAB PO SCH ×2 (08:11→19:35)
[2021-11-09] MEDS: POTASSIUM CHLORIDE CRTAB 20 MEQ TABCR PO SCH (08:22)
[2021-11-09] MEDS: [UNRECOGNIZED DRUG - OTHER] PO SCH (08:22)
[2021-11-09] MEDS ORDERED: POTASSIUM CHLORIDE CRTAB 20 MEQ TABCR PO ONE (08:22)
[2021-11-09 09:27] LABS: Albumin Level 2.3 gm/dl (3.4-5.0); BUN Creatinine Ratio 13.5 (10-20); Bilirubin,Total 0.5 mg/dl (0.2-1); Calcium 9.1 mg/dl (8.5-10.1); Creatinine Clr Calc Pharmacy 92.1 ml/min; Est GFR (African American) 114.5 ml/min; Est GFR (Non-African American) 98.8 ml/min; Potassium 3.4 mmol/L (3.5-5.1)
[2021-11-09 09:28] LABS: Albumin Globulin Ratio 0.6 (0.9-2); Globulin 3.6 gm/dl (2.5-4.0); Total Protein 5.9 gm/dl (6.4-8.2)
[2021-11-09] MEDS: SIMVASTATIN 20 MG TAB PO SCH (09:59)
[2021-11-09] MEDS: ASCORBIC ACID 500 MG TAB PO SCH (09:59)
[2021-11-09] MEDS ORDERED: POTASSIUM CHLORIDE CRTAB 20 MEQ TABCR PO STA (15:45)
--- NOTE | 2021-11-09 19:32 | Hospitalist Progress Note ---
Date of Service November 09, 2021 Assessment & Plan (1) Acute confusion: Plan: Acute metabolic encephalopathy H/O severe multiple sclerosis with paraparesis and neurogenic bladder and has been wheelchair-bound Confusion likely secondary to UTI Medications could be contributing as well Mental status back to baseline Resolved (2) UTI (urinary tract infection) due to urinary indwelling catheter: Plan: Complicated urinary tract infection H/O neurogenic bladder with urine retention, left ureteral stone Urine Cx: Pseudomonas, Enterococcus Enterococcus likely contaminant Continue Zosyn>>Cefepime>>Zosyn Discussed with Elsie Hayes : Recommends 2 week course of IV Zosyn Plan to discharge when placement available Repeat urine culture growing Pseudomonas and Enterococcus (less colonies than prior) Waiting for rehab placement Left ureteral stone Obstructive uropathy S/P cystoscopy, left stent placement, suprapubic cystostomy Appreciate urology input Needs follow-up with urology upon discharge Lumbar compression fracture (L2) Appreciate orthopedics input Pain control Conservative management Needs follow-up with orthopedics upon discharge Hypokalemia Replace electrolytes as needed (3) Multiple sclerosis: Plan: severe multiple sclerosis with paraparesis and neurogenic bladder Wheelchair-bound S/P Intrathecal baclofen pump Her pump medication was changed to 1 mcg from 9 mcg/day on 30 October Appreciate pain management input Pump flow adjusted as before (4) Elevated LFTs: Plan: Likely drug-induced liver injury secondary to [place] Monitor LFTs Appreciate GI input Likely plan for outpatient endoscopic ultrasound Avoid hepatotoxic agents as able DVT Px: Lovenox SQ Disposition Rehab when arranged Admission and Anticipated Discharge Date Admission Date: November 02, 2021 Subjective Patient is seen and examined at bedside No new complaints Waiting for rehab placement Back pain is controlled today Denies any chest pain, shortness of breath, dizziness, nausea, abdominal pain Review of Systems Review of Systems: All systems reviewed & are unremarkable except as noted in Subjective Physical Exam Physical Exam: Physical Exam: Vitals signs as noted above General Appearance:Moderately built and nourished, no apparent distress Head: normocephalic, Atraumatic Eyes: normal inspection, EOMI Neck: supple, Trachea midline Respiratory/Chest: Normal breath sounds, CTA Cardiovascular: S1, S2, No murmur Abdomen/GI:Soft, Non tender, Bowel sounds present Extremities/Musculoskeletal:normal inspection, ankle deformity, B/L LE edema Neurologic/Psych:AAOX3, + Paraplegia B/L LE, Left UE 4/5 Skin: normal color, warm Results & Data Results & Data ([facility]) Vital Signs (Past 12 Hours) Vital Signs Temp Pulse Pulse Resp BP BP Pulse Ox 11/09/21 19:16 37.1 C 96 H 18 119/68 95 11/09/21 16:17 36.7 C 91 H 20 116/76 95 11/09/21 15:49 91 H 11/09/21 11:40 37.0 C 81 20 126/84 97 11/09/21 11:09 86 11/09/21 07:31 36.8 C 84 18 129/83 95 Laboratory Results [facility] 11/09/21 08:15 Sodium 140 Potassium 3.4 L Chloride 111 H Carbon Dioxide 25 BUN 9 Creatinine 0.66 Glucose 132 H Calcium 9.1 Liver Function 11/09/21 Range/Units 08:15 Total Bilirubin 0.5 (0.2-1) mg/dl AST 65 H (15-37) U/L ALT 145 H (12-78) Alkaline Phosphatase 193 H (45-117) U/L Albumin 2.3 L (3.4-5.0) gm/dl
[2021-11-09] MEDS: LORazepam 1 MG TAB PO SCH (19:35)
[2021-11-10] MEDS: ACETAMINOPHEN 325 MG TAB PO PRN ×2 (01:08→16:51)
[2021-11-10] MEDS: PIPERACILLIN/TAZOBACTAM 3.375 GM in DEXTROSE 5% 100 ML IV SCH ×3 (01:09→17:23)
[2021-11-10] MEDS: HEPARIN 100 UNIT/ML 5ML FLUSH FLUSH PRN (05:22)
[2021-11-10] MEDS: ENOXAPARIN INJ 40 MG/0.4 ML SYR SQ SCH (05:22)
[2021-11-10 07:35] LABS: Albumin Level 2.3 gm/dl (3.4-5.0); BUN Creatinine Ratio 16.6 (10-20); Calcium 9.1 mg/dl (8.5-10.1); Creatinine Clr Calc Pharmacy 93.7 ml/min; Est GFR (Non-African American) 99.2 ml/min; Potassium 3.6 mmol/L (3.5-5.1)
[2021-11-10 07:37] LABS: Albumin Globulin Ratio 0.6 (0.9-2); Bilirubin,Total 0.6 mg/dl (0.2-1); Globulin 3.6 gm/dl (2.5-4.0); Total Protein 5.9 gm/dl (6.4-8.2)
[2021-11-10] MEDS: CALCIUM CARBONATE 1250MG TAB PO SCH ×2 (09:09→21:33)
[2021-11-10] MEDS: POTASSIUM CHLORIDE CRTAB 20 MEQ TABCR PO SCH (09:09)
[2021-11-10] MEDS: [UNRECOGNIZED DRUG - OTHER] PO SCH (09:09)
[2021-11-10] MEDS: ASCORBIC ACID 500 MG TAB PO SCH (09:09)
[2021-11-10] MEDS: SIMVASTATIN 20 MG TAB PO SCH (09:09)
[2021-11-10] MEDS: LACTOBACILLUS ACIDOPHILUS 1 GM PACK PO SCH ×2 (13:17→17:23)
--- NOTE | 2021-11-10 15:20 | Hospitalist Progress Note ---
Date of Service November 10, 2021 Assessment & Plan (1) Acute confusion: Plan: Acute metabolic encephalopathy H/O severe multiple sclerosis with paraparesis and neurogenic bladder and has been wheelchair-bound Confusion likely secondary to UTI Medications could be contributing as well Mental status back to baseline Resolved (2) UTI (urinary tract infection) due to urinary indwelling catheter: Plan: Complicated urinary tract infection H/O neurogenic bladder with urine retention, left ureteral stone Urine Cx: Pseudomonas, Enterococcus Enterococcus likely contaminant Continue Zosyn>>Cefepime>>Zosyn Discussed with Elsie Hayes : Recommends 2 week course of IV Zosyn Plan to discharge when placement available Repeat urine culture growing Pseudomonas and Enterococcus (less colonies than prior) Waiting for rehab placement Continue current management Diarrhea likely secondary to antibiotics We will check stool for C. difficile if she develops watery diarrhea Left ureteral stone Obstructive uropathy S/P cystoscopy, left stent placement, suprapubic cystostomy Appreciate urology input Needs follow-up with urology upon discharge Lumbar compression fracture (L2) Appreciate orthopedics input Pain control Conservative management Needs follow-up with orthopedics upon discharge Hypokalemia Replace electrolytes as needed (3) Multiple sclerosis: Plan: severe multiple sclerosis with paraparesis and neurogenic bladder Wheelchair-bound S/P Intrathecal baclofen pump Her pump medication was changed to 1 mcg from 9 mcg/day on 30 October Appreciate pain management input Pump flow adjusted as before (4) Elevated LFTs: Plan: Likely drug-induced liver injury secondary to [place] Monitor LFTs Appreciate GI input Likely plan for outpatient endoscopic ultrasound Avoid hepatotoxic agents as able DVT Px: Lovenox SQ Disposition Rehab when arranged Admission and Anticipated Discharge Date Admission Date: November 02, 2021 Subjective Patient is seen and examined at bedside Reports having transient bladder spasm earlier today which resolved Also reports semiformed bowel movement Waiting for rehab placement Back pain is controlled Denies any chest pain, shortness of breath, dizziness, nausea, abdominal pain Review of Systems Review of Systems: All systems reviewed & are unremarkable except as noted in Subjective Physical Exam Physical Exam: Physical Exam: Vitals signs as noted above General Appearance:Moderately built and nourished, no apparent distress Head: normocephalic, Atraumatic Eyes: normal inspection, EOMI Neck: supple, Trachea midline Respiratory/Chest: Normal breath sounds, CTA Cardiovascular: S1, S2, No murmur Abdomen/GI:Soft, Non tender, Bowel sounds present Extremities/Musculoskeletal:normal inspection, ankle deformity, B/L LE edema Neurologic/Psych:AAOX3, + Paraplegia B/L LE, Left UE 4/5 Skin: normal color, warm Results & Data Results & Data ([facility]) Vital Signs (Past 12 Hours) Vital Signs Temp Pulse Pulse Resp BP BP Pulse Ox 11/10/21 14:36 36.9 C 99 H 20 127/83 96 11/10/21 11:02 37.0 C 89 137/79 96 11/10/21 07:48 36.9 C 79 18 134/83 96 11/10/21 07:07 83 Laboratory Results [facility] 11/10/21 06:24 Sodium 142 Potassium 3.6 Chloride 110 H Carbon Dioxide 25 BUN 11 Creatinine 0.65 Glucose 96 Calcium 9.1 Liver Function 11/10/21 Range/Units 06:24 Total Bilirubin 0.6 (0.2-1) mg/dl AST 49 H (15-37) U/L ALT 121 H (12-78) Alkaline Phosphatase 177 H (45-117) U/L Albumin 2.3 L (3.4-5.0) gm/dl
[2021-11-10 15:56] LABS: Anti Nuclear Antibody Screen NEGATIVE (NEGATIVE); CMV IgM Antibody <30.00 AU/mL; Parvovirus IgM 0.1 (<0.9); Sm Antibody <1.0 NEG AI (<1.0 NEG); Smooth Muscle Antibody NEGATIVE (NEGATIVE)
[2021-11-10] MEDS: LORazepam 1 MG TAB PO SCH (21:33)
[2021-11-11] MEDS: PIPERACILLIN/TAZOBACTAM 3.375 GM in DEXTROSE 5% 100 ML IV SCH ×3 (02:01→17:19)
[2021-11-11] MEDS: ENOXAPARIN INJ 40 MG/0.4 ML SYR SQ SCH (05:34)
[2021-11-11] MEDS: SIMVASTATIN 20 MG TAB PO SCH (08:19)
[2021-11-11] MEDS: POTASSIUM CHLORIDE CRTAB 20 MEQ TABCR PO SCH (08:19)
[2021-11-11] MEDS: [UNRECOGNIZED DRUG - OTHER] PO SCH (08:19)
[2021-11-11] MEDS: ASCORBIC ACID 500 MG TAB PO SCH (08:19)
[2021-11-11 08:20] LABS: BUN Creatinine Ratio 20.1 (10-20); Calcium 9.1 mg/dl (8.5-10.1); Est GFR (African American) 114.5 ml/min; Est GFR (Non-African American) 98.8 ml/min; Magnesium 2.3 mg/dl (1.8-2.4); Potassium 3.7 mmol/L (3.5-5.1)
[2021-11-11] MEDS: CALCIUM CARBONATE 1250MG TAB PO SCH ×2 (08:21→21:09)
[2021-11-11] MEDS: LACTOBACILLUS ACIDOPHILUS 1 GM PACK PO SCH ×3 (08:21→16:38)
[2021-11-11] MEDS: ACETAMINOPHEN 325 MG TAB PO PRN (12:39)
[2021-11-11] MEDS: HEPARIN 100 UNIT/ML 5ML FLUSH FLUSH PRN ×2 (13:30→15:19)
--- NOTE | 2021-11-11 14:20 | Hospitalist Progress Note ---
Date of Service November 11, 2021 Assessment & Plan (1) Acute confusion: Plan: Acute metabolic encephalopathy H/O severe multiple sclerosis with paraparesis and neurogenic bladder and has been wheelchair-bound Confusion likely secondary to UTI Medications could be contributing as well Mental status back to baseline Resolved (2) UTI (urinary tract infection) due to urinary indwelling catheter: Plan: Complicated urinary tract infection H/O neurogenic bladder with urine retention, left ureteral stone Urine Cx: Pseudomonas, Enterococcus Enterococcus likely contaminant Continue Zosyn>>Cefepime>>Zosyn Discussed with Elsie Hayes : Recommends 2 week course of IV Zosyn Plan to discharge when placement available Repeat urine culture growing Pseudomonas and Enterococcus (less colonies than prior) Waiting for rehab placement Left ureteral stone Obstructive uropathy S/P cystoscopy, left stent placement, suprapubic cystostomy Appreciate urology input Needs follow-up with urology upon discharge Lumbar compression fracture (L2) Appreciate orthopedics input Pain control Conservative management Needs follow-up with orthopedics upon discharge Hypokalemia Replace electrolytes as needed (3) Multiple sclerosis: Plan: severe multiple sclerosis with paraparesis and neurogenic bladder Wheelchair-bound S/P Intrathecal baclofen pump Her pump medication was changed to 1 mcg from 9 mcg/day on 30 October Appreciate pain management input Pump flow adjusted as before (4) Elevated LFTs: Plan: Likely drug-induced liver injury secondary to [place] Monitor LFTs Appreciate GI input Likely plan for outpatient endoscopic ultrasound Avoid hepatotoxic agents as able DVT Px: Lovenox SQ Disposition Rehab when arranged Admission and Anticipated Discharge Date Admission Date: November 02, 2021 Subjective Patient is seen and examined at bedside Had 1 loose bowel movement today No recurrence of bladder spasm Hematuria resolved Waiting for rehab placement Denies any chest pain, shortness of breath, dizziness, nausea, abdominal pain Review of Systems Review of Systems: All systems reviewed & are unremarkable except as noted in Subjective Physical Exam Physical Exam: Physical Exam: Vitals signs as noted above General Appearance:Moderately built and nourished, no apparent distress Head: normocephalic, Atraumatic Eyes: normal inspection, EOMI Neck: supple, Trachea midline Respiratory/Chest: Normal breath sounds, CTA Cardiovascular: S1, S2, No murmur Abdomen/GI:Soft, Non tender, Bowel sounds present Extremities/Musculoskeletal:normal inspection, ankle deformity, B/L LE edema Neurologic/Psych:AAOX3, + Paraplegia B/L LE, Left UE 4/5 Skin: normal color, warm Results & Data Results & Data ([facility]) Vital Signs (Past 12 Hours) Vital Signs Temp Pulse Resp BP BP Pulse Ox 11/11/21 11:59 36.9 C 84 20 135/84 98 11/11/21 07:50 36.6 C 87 20 127/72 96 11/11/21 03:03 37 C 89 16 122/74 95 Laboratory Results [facility] 11/11/21 07:39 Sodium 141 Potassium 3.7 Chloride 111 H Carbon Dioxide 26 BUN 13 Creatinine 0.66 Glucose 94 Calcium 9.1
[2021-11-11] MEDS: HYDROmorphone INJ 0.5 MG/0.5 ML SYR IV PRN (15:18)
[2021-11-11] MEDS: LORazepam 1 MG TAB PO SCH (21:09)
[2021-11-12] MEDS: HYDROmorphone INJ 0.5 MG/0.5 ML SYR IV PRN (00:31)
[2021-11-12] MEDS: HEPARIN 100 UNIT/ML 5ML FLUSH FLUSH PRN ×3 (00:33→22:41)
[2021-11-12] MEDS: PIPERACILLIN/TAZOBACTAM 3.375 GM in DEXTROSE 5% 100 ML IV SCH ×3 (01:39→17:40)
[2021-11-12] MEDS: ENOXAPARIN INJ 40 MG/0.4 ML SYR SQ SCH (05:34)
[2021-11-12 06:20] LABS: Hematocrit (blood only) 34.7 % (37-47); Hemoglobin 11.1 g/dL (12.0-16.0); Mean Corpuscular Hemoglobin 31.2 pg (25-34); Mean Corpuscular Volume 97.5 fL (80-100); Platelet Count 339 K/uL (130-400); RDW Coefficient of Variation 16.5 % (11.5-14.5); RDW Standard Deviation 57.7 fL (36.4-46.3); Red Blood Count 3.56 M/uL (4.2-5.4); White Blood Count 8.17 K/uL (4.8-10.8)
[2021-11-12 06:51] LABS: BUN Creatinine Ratio 21.9 (10-20); Calcium 9.1 mg/dl (8.5-10.1); Creatinine Clr Calc Pharmacy 91.2 ml/min; Est GFR (African American) 114.5 ml/min; Est GFR (Non-African American) 98.8 ml/min; Potassium 3.8 mmol/L (3.5-5.1)
[2021-11-12] MEDS: ASCORBIC ACID 500 MG TAB PO SCH (07:42)
[2021-11-12] MEDS: SIMVASTATIN 20 MG TAB PO SCH (07:42)
[2021-11-12] MEDS: CALCIUM CARBONATE 1250MG TAB PO SCH ×2 (07:42→20:40)
[2021-11-12] MEDS: LACTOBACILLUS ACIDOPHILUS 1 GM PACK PO SCH ×3 (07:42→18:09)
[2021-11-12] MEDS: POTASSIUM CHLORIDE CRTAB 20 MEQ TABCR PO SCH (07:42)
[2021-11-12] MEDS: [UNRECOGNIZED DRUG - OTHER] PO SCH (07:43)
--- NOTE | 2021-11-12 10:25 | Hospitalist Progress Note ---
Date of Service November 12, 2021 Assessment & Plan (1) Acute confusion: Plan: Acute metabolic encephalopathy H/O severe multiple sclerosis with paraparesis and neurogenic bladder and has been wheelchair-bound Confusion likely secondary to Complicated UTI Medications could be contributing as well Mental status back to baseline Resolved (2) UTI (urinary tract infection) due to urinary indwelling catheter: Plan: Complicated urinary tract infection H/O neurogenic bladder with urine retention, left ureteral stone Urine Cx: Pseudomonas, Enterococcus Continue Zosyn>>Cefepime>>Zosyn Dr Romero had discussed with Sherif Hayes : Recommends 2 week course of IV Zosyn Today is Day 10 Repeat urine culture growing Pseudomonas and Enterococcus (less colonies than prior) Waiting for rehab placement Left ureteral stone Obstructive uropathy S/P cystoscopy, left stent placement, suprapubic cystostomy Appreciate urology input Needs follow-up with urology upon discharge for continuing management Lumbar compression fracture (L2) Appreciate orthopedics input Pain control. Stop iv dilaudid for now. Tylenol and tramadol prn. Conservative management Needs follow-up with orthopedics upon discharge (3) Multiple sclerosis: Plan: Severe multiple sclerosis with paraparesis and neurogenic bladder Wheelchair-bound S/P Intrathecal baclofen pump Her pump medication was changed to 1 mcg from 9 mcg/day on 30 October Appreciate pain management input. Follow up outpatient Changed iv dilaudid to po meds as above Pump flow adjusted as before (4) Elevated LFTs: Plan: Likely drug-induced liver injury secondary to [place] Monitor LFTs Appreciate GI input Likely plan for outpatient endoscopic ultrasound Avoid hepatotoxic agents as able DVT Px: Lovenox SQ Disposition Rehab when arranged Admission and Anticipated Discharge Date Admission Date: November 02, 2021 Subjective 56-year-old woman with history of severe MS, neurogenic bladder left groin cellulitis, wheelchair-bound who presented with confusion. Being managed for acute metabolic encephalopathy, complicated urinary tract infection. Patient seen and examined today. And oriented to person place and time. Confusion has resolved. Denies any flank pain, dysuria hematuria. Reported 1 loose bowel movements this morning. Denies any chest pain, cough, shortness of breath Denies any nausea, vomiting, abdominal pain Physical Exam Constitutional: + well hydrated; no acute distress Eyes: PERRL, conjunctivae normal, anicteric sclerae ENMT: external ear and nose normal, oropharynx normal Respiratory: normal respiratory effort, lungs clear to auscultation Cardiovascular: Rate/Rhythm: regular rate and regular rhythm S1-S2 Gastrointestinal (Abdomen): normal bowel sounds, soft, nontender, no hepatosplenomegaly Musculoskeletal: Trace pedal edema Neurologic: AOx3, paraplegic Psychiatric: A+Ox3, euthymic affect Results & Data Results & Data ([facility]) Vital Signs (Past 12 Hours) Vital Signs Temp Pulse Pulse Resp BP BP Pulse Ox 11/12/21 07:37 37.1 C 88 18 125/71 96 11/12/21 04:10 36.8 C 78 18 107/69 95 11/11/21 23:02 77 11/11/21 22:35 36.8 C 84 18 108/70 95 Laboratory Results Abnormal lab results 11/12/21 11/12/21 Range/Units 05:58 05:58 RBC 3.56 L (4.2-5.4) M/uL Hgb 11.1 L (12.0-16.0) g/dL Hct 34.7 L (37-47) % RDW Std Deviation 57.7 H (36.4-46.3) fL RDW Coeff of Lore 16.5 H (11.5-14.5) % MPV 11.0 H (7.4-10.4) fL Chloride 108 H (98-107) mmol/L BUN/Creatinine Ratio 21.9 H (10-20)
[2021-11-12] MEDS: ACETAMINOPHEN 325 MG TAB PO PRN ×2 (13:59→22:46)
[2021-11-12] MEDS ORDERED: ACETAMINOPHEN 500 MG TAB PO SCH (14:00)
[2021-11-12] MEDS ORDERED: Nursing to Pharmacy Communication SCH (17:45)
[2021-11-12] MEDS: LORazepam 1 MG TAB PO SCH (20:40)
[2021-11-13] MEDS: PIPERACILLIN/TAZOBACTAM 3.375 GM in DEXTROSE 5% 100 ML IV SCH ×3 (02:22→17:33)
[2021-11-13] MEDS: HEPARIN 100 UNIT/ML 5ML FLUSH FLUSH PRN (06:03)
[2021-11-13] MEDS: ENOXAPARIN INJ 40 MG/0.4 ML SYR SQ SCH (06:03)
[2021-11-13] MEDS: CALCIUM CARBONATE 1250MG TAB PO SCH ×2 (08:38→21:28)
[2021-11-13] MEDS: ADVANCED PROBIOTIC 1250 MG CAPSULE PO SCH (08:38)
[2021-11-13] MEDS: SIMVASTATIN 20 MG TAB PO SCH (08:40)
[2021-11-13] MEDS: [UNRECOGNIZED DRUG - OTHER] PO SCH (08:40)
[2021-11-13] MEDS: POTASSIUM CHLORIDE CRTAB 20 MEQ TABCR PO SCH (08:40)
[2021-11-13] MEDS: ASCORBIC ACID 500 MG TAB PO SCH (08:41)
[2021-11-13 09:57] LABS: BUN Creatinine Ratio 21.2 (10-20); Calcium 8.5 mg/dl (8.5-10.1); Creatinine Clr Calc Pharmacy 88.9 ml/min; Est GFR (African American) 113.3 ml/min; Est GFR (Non-African American) 97.8 ml/min; Potassium 3.7 mmol/L (3.5-5.1)
--- NOTE | 2021-11-13 10:20 | Hospitalist Progress Note ---
Date of Service November 13, 2021 Assessment & Plan (1) Acute confusion: Plan: Acute metabolic encephalopathy H/O severe multiple sclerosis with paraparesis and neurogenic bladder and has been wheelchair-bound Confusion likely secondary to Complicated UTI Medications could be contributing as well Mental status back to baseline Resolved (2) UTI (urinary tract infection) due to urinary indwelling catheter: Plan: Complicated urinary tract infection H/O neurogenic bladder with urine retention, left ureteral stone Urine Cx: Pseudomonas, Enterococcus Continue Zosyn>>Cefepime>>Zosyn Dr Romero had discussed with Sherif Hayes : Recommends 2 week course of IV Zosyn Today is Day 11 Repeat urine culture growing Pseudomonas and Enterococcus (less colonies than prior) Left ureteral stone Obstructive uropathy S/P cystoscopy, left stent placement, suprapubic cystostomy Appreciate urology input Needs follow-up with urology upon discharge for continuing management Lumbar compression fracture (L2) Appreciate orthopedics input Pain controlled Conservative management Needs follow-up with orthopedics upon discharge (3) Multiple sclerosis: Plan: Severe multiple sclerosis with paraparesis and neurogenic bladder Wheelchair-bound S/P Intrathecal baclofen pump Her pump medication was changed to 1 mcg from 9 mcg/day on 30 October Appreciate pain management input. Follow up outpatient Pump flow adjusted as before (4) Elevated LFTs: Plan: Likely drug-induced liver injury secondary to [place] Monitor LFTs Appreciate GI input Likely plan for outpatient endoscopic ultrasound Avoid hepatotoxic agents as able DVT Px: Lovenox SQ Disposition Had peer to peer. Acute rehab denied. However, the provider stated SNF may be approved. CM notified Admission and Anticipated Discharge Date Admission Date: November 02, 2021 Subjective 56-year-old woman with history of severe MS, neurogenic bladder left groin cellulitis, wheelchair-bound who presented with confusion. Being managed for acute metabolic encephalopathy, complicated urinary tract infection. Patient seen and examined today. Alert and oriented to person place and time. Denies any flank pain, dysuria hematuria. Reports back pain is controlled Denies any chest pain, cough, shortness of breath Denies any nausea, vomiting, abdominal pain Physical Exam Constitutional: + well hydrated; no acute distress Eyes: PERRL, conjunctivae normal, anicteric sclerae ENMT: external ear and nose normal, oropharynx normal Respiratory: normal respiratory effort, lungs clear to auscultation Cardiovascular: Rate/Rhythm: regular rate and regular rhythm S1 S2 Gastrointestinal (Abdomen): normal bowel sounds, soft, nontender, no hepatosplenomegaly Musculoskeletal: No pedal edema Neurologic: AOx3, paraplegic Psychiatric: A+Ox3, euthymic affect Results & Data Results & Data ([facility]) Vital Signs (Past 12 Hours) Vital Signs Temp Pulse Pulse Resp BP Pulse Ox 11/13/21 08:00 36.9 C 85 18 110/63 96 11/13/21 07:11 82 11/13/21 04:00 36.8 C 88 18 107/70 94 11/13/21 03:01 91 H 11/12/21 23:06 36.6 C 86 18 125/76 96 Laboratory Results Abnormal lab results 11/13/21 Range/Units 09:17 Chloride 111 H (98-107) mmol/L BUN/Creatinine Ratio 21.2 H (10-20) Glucose 121 H (70-99) mg/dl
[2021-11-13] MEDS: ACETAMINOPHEN 325 MG TAB PO PRN (10:46)
[2021-11-13] MEDS: LORazepam 1 MG TAB PO SCH (21:28)
[2021-11-14] MEDS: PIPERACILLIN/TAZOBACTAM 3.375 GM in DEXTROSE 5% 100 ML IV SCH ×3 (02:03→17:38)
[2021-11-14] MEDS: ENOXAPARIN INJ 40 MG/0.4 ML SYR SQ SCH (06:04)
[2021-11-14 06:59] LABS: Hematocrit (blood only) 33.8 % (37-47); Hemoglobin 10.8 g/dL (12.0-16.0); Mean Corpuscular Hemoglobin 31.4 pg (25-34); Mean Corpuscular Volume 98.3 fL (80-100); Mean Platelet Volume 11.1 fL (7.4-10.4); Platelet Count 333 K/uL (130-400); RDW Coefficient of Variation 16.7 % (11.5-14.5); RDW Standard Deviation 59.5 fL (36.4-46.3); Red Blood Count 3.44 M/uL (4.2-5.4); White Blood Count 8.46 K/uL (4.8-10.8)
[2021-11-14 07:50] LABS: Creatinine Clr Calc Pharmacy 98.4 ml/min; Est GFR (African American) 118.1 ml/min; Est GFR (Non-African American) 101.9 ml/min; Potassium 3.8 mmol/L (3.5-5.1)
[2021-11-14] MEDS: SIMVASTATIN 20 MG TAB PO SCH (08:43)
[2021-11-14] MEDS: ASCORBIC ACID 500 MG TAB PO SCH (08:43)
[2021-11-14] MEDS: ADVANCED PROBIOTIC 1250 MG CAPSULE PO SCH (08:43)
[2021-11-14] MEDS: [UNRECOGNIZED DRUG - OTHER] PO SCH (08:45)
[2021-11-14] MEDS: POTASSIUM CHLORIDE CRTAB 20 MEQ TABCR PO SCH (08:48)
[2021-11-14] MEDS: CALCIUM CARBONATE 1250MG TAB PO SCH ×2 (10:38→21:08)
[2021-11-14] MEDS: ACETAMINOPHEN 325 MG TAB PO PRN ×2 (10:48→21:11)
--- NOTE | 2021-11-14 11:18 | Hospitalist Progress Note ---
Date of Service November 14, 2021 Assessment & Plan (1) Acute confusion: Plan: Acute metabolic encephalopathy H/O severe multiple sclerosis with paraparesis and neurogenic bladder and has been wheelchair-bound Confusion likely due to complicated UTI Medications could be contributing as well Mental status back to baseline Resolved (2) UTI (urinary tract infection) due to urinary indwelling catheter: Plan: Complicated urinary tract infection H/O neurogenic bladder with urine retention, left ureteral stone Urine Cx: Pseudomonas, Enterococcus Continue Zosyn>>Cefepime>>Zosyn Dr Romero had discussed with Sherif Hayes : Recommends 2 week course of IV Zosyn Today is Day 12 Repeat urine culture growing Pseudomonas and Enterococcus (less colonies than prior) Left ureteral stone Obstructive uropathy S/P cystoscopy, left stent placement, suprapubic cystostomy Appreciate urology input Needs follow-up with urology upon discharge for continuing management Lumbar compression fracture (L2) Appreciate orthopedics input Pain controlled Conservative management Needs follow-up with orthopedics upon discharge (3) Multiple sclerosis: Plan: Severe multiple sclerosis with paraparesis and neurogenic bladder Wheelchair-bound S/P Intrathecal baclofen pump Her pump medication was changed on 30 October Appreciate pain management input. Follow up outpatient Pump flow adjusted as before (4) Elevated LFTs: Plan: Likely drug-induced liver injury secondary to [place] Monitor LFTs Appreciate GI input Likely plan for outpatient endoscopic ultrasound Avoid hepatotoxic agents as able DVT Px: Lovenox SQ Disposition Had peer to peer. Acute rehab denied. However, the provider stated SNF may be approved. Patient's is appealing rehab denial I spoke with Patient's . He reported that he is not able to take care of patient on his own. He stated the he is able to do that before as patient is able to stand somewhat with support but that he is not able to now Patient will benefit from SNF placement Awaiting result of appeal Admission and Anticipated Discharge Date Admission Date: November 02, 2021 Subjective 56-year-old woman with history of severe MS, neurogenic bladder left groin cellulitis, wheelchair-bound who presented with confusion. Being managed for acute metabolic encephalopathy, complicated urinary tract infection. Patient seen and examined today. Denies any flank pain, dysuria hematuria. Denies any pain today Denies any chest pain, cough, shortness of breath Denies any nausea, vomiting, abdominal pain Physical Exam Constitutional: + well hydrated; no acute distress Eyes: PERRL, conjunctivae normal, anicteric sclerae ENMT: external ear and nose normal, oropharynx normal Respiratory: normal respiratory effort, lungs clear to auscultation Cardiovascular: Rate/Rhythm: regular rate and regular rhythm S1 S2 Gastrointestinal (Abdomen): normal bowel sounds, soft, nontender, no hepatosplenomegaly Neurologic: AOx3, paraplegic Psychiatric: A+Ox3, euthymic affect Genitourinary: Suprapubic quintanilla Results & Data Results & Data ([facility]) Vital Signs (Past 12 Hours) Vital Signs Temp Pulse Pulse Resp BP BP Pulse Ox 11/14/21 08:03 36.9 C 92 H 16 112/73 95 11/14/21 07:13 100 H 11/14/21 03:55 37.0 C 92 H 18 119/79 97 11/13/21 23:50 36.8 C 92 H 18 131/72 96 Laboratory Results Abnormal lab results 11/14/21 11/14/21 Range/Units 06:32 06:32 RBC 3.44 L (4.2-5.4) M/uL Hgb 10.8 L (12.0-16.0) g/dL Hct 33.8 L (37-47) % RDW Std Deviation 59.5 H (36.4-46.3) fL RDW Coeff of Lore 16.7 H (11.5-14.5) % MPV 11.1 H (7.4-10.4) fL Chloride 110 H (98-107) mmol/L BUN/Creatinine Ratio 26.0 H (10-20)
[2021-11-14] MEDS: LORazepam 1 MG TAB PO SCH (21:09)
[2021-11-15] MEDS: PIPERACILLIN/TAZOBACTAM 3.375 GM in DEXTROSE 5% 100 ML IV SCH ×3 (02:21→18:11)
[2021-11-15] MEDS: ENOXAPARIN INJ 40 MG/0.4 ML SYR SQ SCH (05:59)
[2021-11-15] MEDS: CALCIUM CARBONATE 1250MG TAB PO SCH ×2 (08:19→21:08)
[2021-11-15] MEDS: [UNRECOGNIZED DRUG - OTHER] PO SCH (08:19)
[2021-11-15] MEDS: ADVANCED PROBIOTIC 1250 MG CAPSULE PO SCH (08:19)
[2021-11-15] MEDS: SIMVASTATIN 20 MG TAB PO SCH (08:19)
[2021-11-15] MEDS: ASCORBIC ACID 500 MG TAB PO SCH (08:20)
[2021-11-15] MEDS: POTASSIUM CHLORIDE CRTAB 20 MEQ TABCR PO SCH (08:22)
--- NOTE | 2021-11-15 09:04 | Hospitalist Progress Note ---
Date of Service November 15, 2021 Assessment & Plan (1) Acute confusion: Plan: Acute metabolic encephalopathy H/O severe multiple sclerosis with paraparesis and neurogenic bladder and has been wheelchair-bound Confusion likely due to complicated UTI Medications could be contributing as well Mental status back to baseline Resolved (2) UTI (urinary tract infection) due to urinary indwelling catheter: Plan: Complicated urinary tract infection H/O neurogenic bladder with urine retention, left ureteral stone Urine Cx: Pseudomonas, Enterococcus Continue Zosyn>>Cefepime>>Zosyn Dr Romero had discussed with Sherif Hayes : Recommends 2 week course of IV Zosyn Today is Day 13 Repeat urine culture growing Pseudomonas and Enterococcus (less colonies than prior) Left ureteral stone Obstructive uropathy S/P cystoscopy, left stent placement, suprapubic cystostomy on 11/05/21 Appreciate urology input Needs follow-up with urology upon discharge for continuing management Lumbar compression fracture (L2) Appreciate orthopedics input Pain controlled Conservative management Needs follow-up with orthopedics upon discharge (3) Multiple sclerosis: Plan: Severe multiple sclerosis with paraparesis and neurogenic bladder Wheelchair-bound S/P Intrathecal baclofen pump Her pump medication was changed on 30 October Appreciate pain management input. Follow up outpatient Pump flow adjusted as before (4) Elevated LFTs: Plan: Likely drug-induced liver injury secondary to [place] Monitor LFTs Appreciate GI input Likely plan for outpatient endoscopic ultrasound Avoid hepatotoxic agents as able DVT Px: Lovenox SQ Disposition On 11/13/21, I had peer to peer. Acute rehab denied. However, the provider stated SNF may be approved. Patient's is appealing rehab denial On 11/14/21, I spoke with Patient's . He reported that he is not able to take care of patient on his own. He stated the he is able to do that before as patient is able to stand somewhat with support but that he is not able to now Patient will benefit from SNF placement Awaiting result of appeal Continue PT/OT while inpt Admission and Anticipated Discharge Date Admission Date: November 02, 2021 Subjective 56-year-old woman with history of severe MS, neurogenic bladder left groin cellulitis, wheelchair-bound who presented with confusion. Being managed for acute metabolic encephalopathy, complicated urinary tract infection. Patient seen and examined today. Denes any complaints Denies any flank pain, dysuria hematuria. Denies any chest pain, cough, shortness of breath Denies any nausea, vomiting, abdominal pain Physical Exam Constitutional: + well hydrated; no acute distress Eyes: PERRL, conjunctivae normal, anicteric sclerae ENMT: external ear and nose normal, oropharynx normal Respiratory: normal respiratory effort, lungs clear to auscultation Cardiovascular: Rate/Rhythm: regular rate and regular rhythm S1 S2 Gastrointestinal (Abdomen): normal bowel sounds, soft, nontender, no hepatosplenomegaly Neurologic: PERRL, EOMI, accommodation nl, no face palsy, no dysarthria Paraplegic Psychiatric: A+Ox3, euthymic affect Results & Data Results & Data ([facility]) Vital Signs (Past 12 Hours) Vital Signs Temp Pulse Pulse Resp BP BP Pulse Ox 11/15/21 08:02 36.7 C 87 18 118/77 95 11/15/21 07:31 79 11/15/21 03:39 36.8 C 89 16 113/71 94 11/15/21 01:03 75 11/14/21 23:00 36.5 C 78 16 113/72 96
[2021-11-15] MEDS: LORazepam 1 MG TAB PO SCH (21:08)
[2021-11-16] MEDS: PIPERACILLIN/TAZOBACTAM 3.375 GM in DEXTROSE 5% 100 ML IV SCH ×3 (02:07→17:13)
[2021-11-16] MEDS: ENOXAPARIN INJ 40 MG/0.4 ML SYR SQ SCH (06:15)
[2021-11-16] MEDS: [UNRECOGNIZED DRUG - OTHER] PO SCH (07:44)
[2021-11-16] MEDS: POTASSIUM CHLORIDE CRTAB 20 MEQ TABCR PO SCH (07:44)
[2021-11-16] MEDS: ADVANCED PROBIOTIC 1250 MG CAPSULE PO SCH (07:44)
[2021-11-16] MEDS: ASCORBIC ACID 500 MG TAB PO SCH (07:45)
[2021-11-16] MEDS: CALCIUM CARBONATE 1250MG TAB PO SCH ×2 (07:45→20:50)
[2021-11-16] MEDS: SIMVASTATIN 20 MG TAB PO SCH (08:21)
--- NOTE | 2021-11-16 10:11 | Hospitalist Progress Note ---
Date of Service November 16, 2021 Assessment & Plan (1) Acute confusion: Plan: Acute metabolic encephalopathy H/O severe multiple sclerosis with paraparesis and neurogenic bladder and has been wheelchair-bound Confusion likely due to complicated UTI Medications could be contributing as well Mental status back to baseline Resolved (2) UTI (urinary tract infection) due to urinary indwelling catheter: Plan: Complicated urinary tract infection H/O neurogenic bladder with urine retention, left ureteral stone Urine Cx: Pseudomonas, Enterococcus Continue Zosyn>>Cefepime>>Zosyn Dr Romero had discussed with Sherif Hayes : Recommends 2 week course of IV Zosyn Today is Day 14 Will complete antibiotics today Repeat urine culture growing Pseudomonas and Enterococcus (less colonies than prior) Left ureteral stone Obstructive uropathy S/P cystoscopy, left stent placement, suprapubic cystostomy on 11/05/21 Appreciate urology input Needs follow-up with urology upon discharge for continuing management Lumbar compression fracture (L2) Appreciate orthopedics input Pain controlled Conservative management Needs follow-up with orthopedics upon discharge (3) Multiple sclerosis: Plan: Severe multiple sclerosis with paraparesis and neurogenic bladder Wheelchair-bound S/P Intrathecal baclofen pump Her pump medication was changed on 30 October Appreciate pain management input. Follow up outpatient Pump flow adjusted as before (4) Elevated LFTs: Plan: Likely drug-induced liver injury secondary to [place] Monitor LFTs Appreciate GI input Likely plan for outpatient endoscopic ultrasound Avoid hepatotoxic agents as able DVT Px: Lovenox SQ Disposition On 11/13/21, I had peer to peer. Acute rehab denied. However, the provider stated SNF may be approved. Patient's is appealing rehab denial On 11/14/21, I spoke with Patient's . He reported that he is not able to take care of patient on his own. He stated the he is able to do that before as patient is able to stand somewhat with support but that he is not able to now Patient will benefit from SNF placement Awaiting result of appeal Continue PT/OT while inpt DC telemetry Admission and Anticipated Discharge Date Admission Date: November 02, 2021 Subjective 56-year-old woman with history of severe MS, neurogenic bladder left groin cellulitis, wheelchair-bound who presented with confusion. Being managed for acute metabolic encephalopathy, complicated urinary tract infection. Patient seen and examined today. Denies any complaints Denies any flank pain, dysuria hematuria. Denies any chest pain, cough, shortness of breath Denies any nausea, vomiting, abdominal pain Physical Exam Constitutional: + well hydrated; no acute distress Eyes: PERRL, conjunctivae normal, anicteric sclerae ENMT: external ear and nose normal, oropharynx normal Respiratory: normal respiratory effort, lungs clear to auscultation Cardiovascular: Rate/Rhythm: regular rate and regular rhythm S1 S2 Gastrointestinal (Abdomen): normal bowel sounds, soft, nontender, no hepatosplenomegaly Musculoskeletal: No pedal edema Neurologic: PERRL, EOMI, accommodation nl, no face palsy, no dysarthria Psychiatric: A+Ox3, euthymic affect Genitourinary: Suprapubic quintanilla in situ Results & Data Results & Data ([facility]) Vital Signs (Past 12 Hours) Vital Signs Temp Pulse Pulse Resp BP Pulse Ox 11/16/21 07:19 102 H 11/16/21 07:12 37.1 C 92 H 18 124/69 97 11/16/21 03:18 37.2 C 94 H 18 107/70 96 11/16/21 00:44 87 11/15/21 22:51 37 C 91 H 16 96/64 L 96
[2021-11-16] MEDS: LORazepam 1 MG TAB PO SCH (20:51)
[2021-11-16] MEDS: ACETAMINOPHEN 325 MG TAB PO PRN (20:54)
[2021-11-17] MEDS: PIPERACILLIN/TAZOBACTAM 3.375 GM in DEXTROSE 5% 100 ML IV SCH ×2 (02:41→10:41)
[2021-11-17] MEDS: ENOXAPARIN INJ 40 MG/0.4 ML SYR SQ SCH (05:48)
[2021-11-17] MEDS: CALCIUM CARBONATE 1250MG TAB PO SCH ×2 (08:35→20:39)
[2021-11-17] MEDS: SIMVASTATIN 20 MG TAB PO SCH (08:35)
[2021-11-17] MEDS: ASCORBIC ACID 500 MG TAB PO SCH (08:36)
[2021-11-17] MEDS: ADVANCED PROBIOTIC 1250 MG CAPSULE PO SCH (08:36)
[2021-11-17] MEDS: [UNRECOGNIZED DRUG - OTHER] PO SCH (08:37)
[2021-11-17] MEDS: POTASSIUM CHLORIDE CRTAB 20 MEQ TABCR PO SCH (08:39)
[2021-11-17] MEDS: HEPARIN 100 UNIT/ML 5ML FLUSH FLUSH PRN (14:49)
--- NOTE | 2021-11-17 16:26 | Hospitalist Progress Note ---
Date of Service November 17, 2021 Assessment & Plan (1) Acute confusion: Plan: Acute metabolic encephalopathy H/O severe multiple sclerosis with paraparesis and neurogenic bladder and has been wheelchair-bound Confusion likely due to complicated UTI Medications could be contributing as well Mental status back to baseline Resolved (2) UTI (urinary tract infection) due to urinary indwelling catheter: Plan: Complicated urinary tract infection H/O neurogenic bladder with urine retention, left ureteral stone Urine Cx: Pseudomonas, Enterococcus Continue Zosyn>>Cefepime>>Zosyn Dr Romero had discussed with Sherif Hayes : Recommends 2 week course of IV Zosyn Repeat urine culture growing Pseudomonas and Enterococcus (less colonies than prior) Completed antibiotics Left ureteral stone Obstructive uropathy S/P cystoscopy, left stent placement, suprapubic cystostomy on 11/05/21 Appreciate urology input Needs follow-up with urology upon discharge for continuing management Lumbar compression fracture (L2) Appreciate orthopedics input Pain controlled Conservative management Needs follow-up with orthopedics upon discharge (3) Multiple sclerosis: Plan: Severe multiple sclerosis with paraparesis and neurogenic bladder Wheelchair-bound S/P Intrathecal baclofen pump Her pump medication was changed on 30 October Appreciate pain management input. Follow up outpatient Pump flow adjusted as before (4) Elevated LFTs: Plan: Likely drug-induced liver injury secondary to [place] Monitor LFTs Appreciate GI input Likely plan for outpatient endoscopic ultrasound Avoid hepatotoxic agents as able DVT Px: Lovenox SQ Disposition On 11/13/21, I had peer to peer. Acute rehab denied. However, the provider stated SNF may be approved. Patient's is appealing rehab denial On 11/14/21, I spoke with Patient's . He reported that he is not able to take care of patient on his own. He stated the he is able to do that before as patient is able to stand somewhat with support but that he is not able to now Patient will benefit from SNF placement Spoke with today, appeal for rehab denial still pending. However, he is also open to SNF placement. CM working on this Continue PT/OT while inpt Admission and Anticipated Discharge Date Admission Date: November 02, 2021 Subjective 56-year-old woman with history of severe MS, neurogenic bladder left groin cellulitis, wheelchair-bound who presented with confusion. Being managed for acute metabolic encephalopathy, complicated urinary tract infection. Patient seen and examined today. Denies any complaints Denies any flank pain, dysuria hematuria. Denies any chest pain, cough, shortness of breath Denies any nausea, vomiting, abdominal pain Physical Exam Constitutional: + well hydrated; no acute distress Eyes: PERRL, conjunctivae normal, anicteric sclerae ENMT: external ear and nose normal, oropharynx normal Respiratory: normal respiratory effort, lungs clear to auscultation Cardiovascular: Rate/Rhythm: regular rate and regular rhythm Gastrointestinal (Abdomen): normal bowel sounds, soft, nontender, no hepatosplenomegaly Neurologic: PERRL, EOMI, accommodation nl, no face palsy, no dysarthria Psychiatric: A+Ox3, euthymic affect Genitourinary: [place] in situ Results & Data Results & Data ([facility]) Vital Signs (Past 12 Hours) Vital Signs Temp Pulse Resp BP Pulse Ox 11/17/21 07:18 37 C 91 H 18 108/73 99
[2021-11-17] MEDS: LORazepam 1 MG TAB PO SCH (20:39)
[2021-11-17] MEDS: ACETAMINOPHEN 325 MG TAB PO PRN (22:35)
[2021-11-18] MEDS: ENOXAPARIN INJ 40 MG/0.4 ML SYR SQ SCH (05:49)
[2021-11-18] MEDS: CALCIUM CARBONATE 1250MG TAB PO SCH ×2 (07:39→21:39)
[2021-11-18] MEDS: POTASSIUM CHLORIDE CRTAB 20 MEQ TABCR PO SCH (07:39)
[2021-11-18] MEDS: ASCORBIC ACID 500 MG TAB PO SCH (07:39)
[2021-11-18] MEDS: ADVANCED PROBIOTIC 1250 MG CAPSULE PO SCH (07:39)
[2021-11-18] MEDS: [UNRECOGNIZED DRUG - OTHER] PO SCH (07:40)
[2021-11-18] MEDS: SIMVASTATIN 20 MG TAB PO SCH (07:40)
--- NOTE | 2021-11-18 16:26 | Hospitalist Progress Note ---
Date of Service November 18, 2021 Assessment & Plan (1) Acute confusion: Plan: Acute metabolic encephalopathy H/O severe multiple sclerosis with paraparesis and neurogenic bladder and has been wheelchair-bound Confusion likely due to complicated UTI Medications could be contributing as well Mental status back to baseline Resolved (2) UTI (urinary tract infection) due to urinary indwelling catheter: Plan: Complicated urinary tract infection H/O neurogenic bladder with urine retention, left ureteral stone Urine Cx: Pseudomonas, Enterococcus Continue Zosyn>>Cefepime>>Zosyn Dr Romero had discussed with Sherif Hayes : Recommends 2 week course of IV Zosyn Repeat urine culture growing Pseudomonas and Enterococcus (less colonies than prior) Completed antibiotics Left ureteral stone Obstructive uropathy S/P cystoscopy, left stent placement, suprapubic cystostomy on 11/05/21 Appreciate urology input Needs follow-up with urology upon discharge for continuing management Lumbar compression fracture (L2) Appreciate orthopedics input Pain controlled Conservative management Needs follow-up with orthopedics upon discharge (3) Multiple sclerosis: Plan: Severe multiple sclerosis with paraparesis and neurogenic bladder Wheelchair-bound S/P Intrathecal baclofen pump Her pump medication was changed on 30 October Appreciate pain management input. Follow up outpatient Pump flow adjusted as before (4) Elevated LFTs: Plan: Likely drug-induced liver injury secondary to [place] Monitor LFTs Appreciate GI input Likely plan for outpatient endoscopic ultrasound Avoid hepatotoxic agents as able DVT Px: Lovenox SQ Disposition On 11/13/21, I had peer to peer. Acute rehab denied. However, the provider stated SNF may be approved. Patient's is appealing rehab denial On 11/14/21, I spoke with Patient's . He reported that he is not able to take care of patient on his own. He stated the he is able to do that before as patient is able to stand somewhat with support but that he is not able to now Patient will benefit from SNF placement Spoke with yesterday, appeal for rehab denial still pending. However, he is also open to SNF placement. CM working on this Continue PT/OT while inpt Admission and Anticipated Discharge Date Admission Date: November 02, 2021 Subjective 56-year-old woman with history of severe MS, neurogenic bladder left groin cellulitis, wheelchair-bound who presented with confusion. Being managed for acute metabolic encephalopathy, complicated urinary tract infection. Patient seen and examined today. Denies any complaints Denies any flank pain, dysuria hematuria. Denies any chest pain, cough, shortness of breath Denies any nausea, vomiting, abdominal pain Physical Exam Constitutional: + well hydrated; no acute distress Eyes: PERRL, conjunctivae normal, anicteric sclerae ENMT: external ear and nose normal, oropharynx normal Respiratory: normal respiratory effort, lungs clear to auscultation Cardiovascular: Rate/Rhythm: regular rate and regular rhythm S1 S2 Gastrointestinal (Abdomen): normal bowel sounds, soft, nontender, no hepatosplenomegaly Musculoskeletal: No pedal edema Neurologic: PERRL, EOMI, accommodation nl, no face palsy, no dysarthria Paraplegic Psychiatric: A+Ox3, euthymic affect Results & Data Results & Data ([facility]) Vital Signs (Past 12 Hours) Vital Signs Temp Pulse Resp BP BP Pulse Ox 11/18/21 16:19 36.6 C 106 H 18 114/75 94 11/18/21 06:55 36.6 C 80 16 107/71 97
[2021-11-18] MEDS: LORazepam 1 MG TAB PO SCH (21:39)
[2021-11-19] MEDS: ENOXAPARIN INJ 40 MG/0.4 ML SYR SQ SCH (06:33)
[2021-11-19] MEDS: ASCORBIC ACID 500 MG TAB PO SCH (07:30)
[2021-11-19] MEDS: ADVANCED PROBIOTIC 1250 MG CAPSULE PO SCH (07:31)
[2021-11-19] MEDS: CALCIUM CARBONATE 1250MG TAB PO SCH ×2 (07:31→21:38)
[2021-11-19] MEDS: SIMVASTATIN 20 MG TAB PO SCH (07:32)
[2021-11-19] MEDS: [UNRECOGNIZED DRUG - OTHER] PO SCH (07:34)
[2021-11-19] MEDS: POTASSIUM CHLORIDE CRTAB 20 MEQ TABCR PO SCH (07:35)
[2021-11-19 07:58] LABS: BUN Creatinine Ratio 29.8 (10-20); Calcium 9.5 mg/dl (8.5-10.1); Creatinine Clr Calc Pharmacy 103.3 ml/min; Est GFR (African American) 120.1 ml/min; Est GFR (Non-African American) 103.6 ml/min; Potassium 3.9 mmol/L (3.5-5.1)
[2021-11-19] MEDS: ACETAMINOPHEN 325 MG TAB PO PRN (14:25)
--- NOTE | 2021-11-19 15:18 | Hospitalist Progress Note ---
Date of Service November 19, 2021 Assessment & Plan (1) S/P ureteral stent placement: (2) Left ureteral stone: (3) Lumbar compression fracture: (4) UTI (urinary tract infection) due to urinary indwelling catheter: Plan: (1) Acute confusion: Plan: Acute metabolic encephalopathy H/O severe multiple sclerosis with paraparesis and neurogenic bladder and has been wheelchair-bound Confusion likely due to complicated UTI Medications could be contributing as well Mental status back to baseline Resolved (2) UTI (urinary tract infection) due to urinary indwelling catheter: Plan: Complicated urinary tract infection H/O neurogenic bladder with urine retention, left ureteral stone Urine Cx: Pseudomonas, Enterococcus Continue Zosyn>>Cefepime>>Zosyn Dr Romero had discussed with [facility] ID : Recommends 2 week course of IV Zosyn Repeat urine culture growing Pseudomonas and Enterococcus (less colonies than prior) Completed antibiotics #. Left ureteral stone #. Obstructive uropathy S/P cystoscopy, left stent placement, suprapubic cystostomy on 11/05/21 Pt again noting having dark red urine, will send UA, reconsult Uro. Per RN, patient's urine is dark sonia with clots in the afternoon Needs follow-up with urology upon discharge for continuing management #. Lumbar compression fracture (L2) Appreciate orthopedics input Pain controlled Conservative management Needs follow-up with orthopedics upon discharge (3) Multiple sclerosis: Plan: Severe multiple sclerosis with paraparesis and neurogenic bladder Wheelchair-bound S/P Intrathecal baclofen pump Her pump medication was changed on 30 October Appreciate pain management input. Follow up outpatient Pump flow adjusted as before (4) Elevated LFTs: Plan: Likely drug-induced liver injury secondary to [place] Monitor LFTs Appreciate GI input Likely plan for outpatient endoscopic ultrasound Avoid hepatotoxic agents as able DVT Px: Lovenox SQ Disposition Per Prior ATtending: On 11/13/21, I had peer to peer. Acute rehab denied. However, the provider stated SNF may be approved. Patient's is appealing rehab denial On 11/14/21, I spoke with Patient's . He reported that he is not able to take care of patient on his own. He stated the he is able to do that before as patient is able to stand somewhat with support but that he is not able to now Patient will benefit from SNF placement Spoke with yesterday, appeal for rehab denial still pending. However, he is also open to SNF placement. CM working on this. Patient fairly stable, will possibly reconsult urology prior to discharge. Continue PT/OT while inpt Admission and Anticipated Discharge Date Admission Date: November 02, 2021 Subjective Patient was lying in bed, room air, NAD, no new acute events overnight. Patient reports her urine changing color to darker red. Send urinalysis. Consider urology reconsult. Per RN, patient's urine is dark sonia with clots in the afternoon. Patient denies previous SSS chest pain/palpitations/belly pain/other review of symptoms. Physical Exam Physical Exam: GENERAL: Alert and oriented x3. NAD, on RA. HEENT: No pallor, no icterus. Pupils equal, round and reactive to light. Oral mucosa moist. NECK: No JVD, no neck masses. HEART: S1 and S2 heard. Regular rate and rhythm. No murmur, no gallop. RESPIRATORY SYSTEM: Normal AP diameter. No accessory muscle use. No wheezing, no crackles. ABDOMEN: Soft, bowel sounds present, nontender, no distention. Suprapubic catheter noted with noninfected port of entry. CENTRAL NERVOUS SYSTEM: No facial droop. Speech is clear. Obeys simple commands. Paraplegic. EXTREMITIES: No edema, no erythema seen. Results & Data Results & Data ([facility]) Vital Signs (Past 12 Hours) Vital Signs Temp Pulse Resp BP Pulse Ox 11/19/21 07:48 36.6 C 82 16 121/75 97
[2021-11-19 18:41] LABS: Appearance Urine Cloudy (Clear); Bilirubin Urine Negative (Negative); Blood Urine 3+ (Negative); Color Urine Brown; Glucose Urine UA Negative (Negative); Ketones Urine Negative (Negative); Leukocyte Esterase Urine 3+ (Negative); Nitrite Urine Positive (Negative); Protein Urine 2+ (Negative); Specific Gravity Urine 1.025 (1.000-1.030); Urobilinogen Urine Negative (Negative)
[2021-11-19 18:54] LABS: Bacteria Urine Negative (Negative); Epithelial Cell Urine 0-5 /lpf (0-5); RBC Urine >30 /hpf (0-4)
[2021-11-19] MEDS: LORazepam 1 MG TAB PO SCH (21:40)
[2021-11-19] MEDS: IBUPROFEN 200 MG TAB PO PRN (23:03)
[2021-11-20] MEDS: ENOXAPARIN INJ 40 MG/0.4 ML SYR SQ SCH (05:32)
[2021-11-20 05:41] LABS: Hematocrit (blood only) 35.1 % (37-47); Hemoglobin 11.1 g/dL (12.0-16.0); Mean Corpuscular Hemoglobin 31.5 pg (25-34); Mean Corpuscular Hgb Conc 31.6 g/dL (32-36); Mean Corpuscular Volume 99.7 fL (80-100); Mean Platelet Volume 11.6 fL (7.4-10.4); Platelet Count 285 K/uL (130-400); RDW Coefficient of Variation 16.6 % (11.5-14.5); RDW Standard Deviation 60.8 fL (36.4-46.3); Red Blood Count 3.52 M/uL (4.2-5.4); White Blood Count 6.82 K/uL (4.8-10.8)
[2021-11-20 06:01] LABS: BUN Creatinine Ratio 31.7 (10-20); Calcium 9.3 mg/dl (8.5-10.1); Creatinine Clr Calc Pharmacy 93.5 ml/min; Est GFR (African American) 116.2 ml/min; Est GFR (Non-African American) 100.3 ml/min
[2021-11-20] MEDS: ASCORBIC ACID 500 MG TAB PO SCH (08:37)
[2021-11-20] MEDS: POTASSIUM CHLORIDE CRTAB 20 MEQ TABCR PO SCH (08:37)
[2021-11-20] MEDS: SIMVASTATIN 20 MG TAB PO SCH (08:38)
[2021-11-20] MEDS: ADVANCED PROBIOTIC 1250 MG CAPSULE PO SCH (08:38)
[2021-11-20] MEDS: CALCIUM CARBONATE 1250MG TAB PO SCH ×2 (08:38→20:19)
[2021-11-20] MEDS: [UNRECOGNIZED DRUG - OTHER] PO SCH (08:38)
--- NOTE | 2021-11-20 12:12 | Urology Progress Note ---
Date of Service November 20, 2021 Assessment & Plan (1) Left ureteral stone: (2) Bladder stone: (3) S/P ureteral stent placement: (4) Chronic suprapubic catheter: Plan: Pt POD #15 s/p cystoscopy, left stent placement, suprapubic cystostomy with Dr. Gonzalez. - Reconsulted by [facility] medicine for hematuria - Plan of care reviewed with Dr. Gonzalez, urologist [facility] portal consultant - She remains afebrile, no leukocytosis, creatinine within normal limits - Subjectively doing very well - SP tube intact, patent and draining appropriately - urine appears clear yellow today on exam, scant red/maroon sediment - Denies any additional urinary s/s at present - She completed an extended course of IV Zosyn x 14 days on 11/16 as recommended by ID for Pseudomonas, Enterococcus UTI - Given presence of chronic indwelling catheter would avoid repeat culture at this time unless she developed worsening hematuria, dysuria, bladder pain, fever, leukocytosis, confusion, etc - Hematuria can also occur secondary to ureteral stent in place and/or SP tube irritation - Continue to monitor - If patient remains in hospital awaiting placement, can consider stone treatment while inpatient - discussed with patient - She is agreeable with the plan, all questions answered - Will follow peripherally and consider stone treatment as above, please call with any further issues or concerns Admission and Anticipated Discharge Date Admission Date: November 02, 2021 Supervising Physician Co-Signing Physician Notes I have discussed Ms. Adams's case with LINDA Bee and agree with the above documentation. Overall she is draining well through her current SP tube. In the setting of the indwelling catheter, I suspect any urine culture w ill be positive for bacteria. Unless she is having worsening symptoms, fevers/chills, lower abdominal pressure, increased white count, I would hold off on repeating urinalysis. It is common to have hematuria with ureteral stent in place, and Ms. Adams may also have hematuria from her bladder stone. Since placement remains an issue, we will look for times when we can treat her stones while she remains inpatient. Subjective Reconsulted by hospital medicine today to see patient due to hematuria. She is POD #15 s/p cystoscopy, left stent placement, suprapubic cystostomy with Dr. Gonzalez. Currently awaiting discharge placement. Patient seen and examined at bedside today. She is awake, alert and resting in bed. Reports she is feeling great. No abdominal, flank, or suprapubic pain. Denies dysuria or bladder discomfort. SP tube intact, patent and draining clear yellow urine into tubing at time of exam, scant red/maroon-tinged sediment noted. No issues with SP tube per patient. No fever, chills, nausea or vomiting. Offers no additional concerns at this time. Review of Systems Constitutional: as per Subjective / HPI Gastrointestinal: as per Subjective / HPI Genitourinary: as per Subjective / HPI Physical Exam Constitutional: well developed and well nourished; no acute distress and not ill appearing Neck: normal visual inspection Respiratory: normal respiratory effort and able to speak in complete sentences; no respiratory distress and no labored breathing Gastrointestinal (Abdomen): Inspection/Auscultation: abdomen normal to inspection; abdomen not distended Percussion/Palpation: abdomen soft; abdomen nontender and no guarding Skin: No visible rashes noted Neurologic: awake Psychiatric: Orientation: alert, oriented x 3 and cooperative Genitourinary: no CVA tenderness SP tube intact, patent and draining clear yellow urine in tubing, scant red/maroon sediment noted Results & Data ([facility]) Vital Signs (Past 12 Hours) Vital Signs Temp Pulse Resp BP Pulse Ox 11/20/21 07:33 36.7 C 78 16 150/71 H 96 PG Care Time/CCT Total # of Minutes Spent Total Time Spent with Patient: Total time spent is greater than 50% in coordination of care (as documented) at patient's floor/unit and/or counseling patient: Coding Level of Care Code 76653 Subseq Hosp Care Lvl 2 Diagnoses Left ureteral stone N20.1 Bladder stone N21.0 S/P ureteral stent placement Z96.0 Chronic suprapubic catheter Z93.59
--- NOTE | 2021-11-20 16:48 | Hospitalist Progress Note ---
Date of Service November 20, 2021 Assessment & Plan (1) S/P ureteral stent placement: (2) Left ureteral stone: (3) Lumbar compression fracture: (4) UTI (urinary tract infection) due to urinary indwelling catheter: Plan: Acute confusion: Acute metabolic encephalopathy H/O severe multiple sclerosis with paraparesis and neurogenic bladder and has been wheelchair-bound Confusion likely due to complicated UTI Medications could be contributing as well Mental status back to baseline Resolved UTI (urinary tract infection) due to urinary indwelling catheter: Complicated urinary tract infection H/O neurogenic bladder with urine retention, left ureteral stone Urine Cx: Pseudomonas, Enterococcus Was on Zosyn>>Cefepime>>Zosyn Dr Romero had discussed with [facility] ID : Recommends 2 week course of IV Zosyn - course completed Due to hematuria yesterday, repeat UA and culture were sent. Patient afebrile without leukocytosis, would hold on antibiotics for now Left ureteral stone Obstructive uropathy S/P cystoscopy, left stent placement, suprapubic cystostomy on 11/05/21 11/19/2021 -patient was noted to have dark sonia urine with blood clots, urology reconsulted Urology considering definitive stone treatment while inpatient Lumbar compression fracture (L2) Appreciate orthopedics input Pain controlled Conservative management Needs follow-up with orthopedics upon discharge Multiple sclerosis: Severe multiple sclerosis with paraparesis and neurogenic bladder Wheelchair-bound S/P Intrathecal baclofen pump Her pump medication was changed on 30 October Appreciate pain management input. Follow up outpatient Elevated LFTs: Likely drug-induced liver injury secondary to [place] Monitor LFTs GI consult Likely plan for outpatient EUS Avoid hepatotoxic agents as able DVT Px: Lovenox SQ Disposition: Pending, per patient's , he is unable to care for the patient at home. Placement pending. Admission and Anticipated Discharge Date Admission Date: November 02, 2021 Supervising Physician Co-Signing Physician Notes UPON exam GENERAL: Alert and oriented x3. NAD, on RA. HEENT: No pallor, no icterus. Pupils equal, round and reactive to light. Oral mucosa moist. NECK: No JVD, no neck masses. HEART: S1 and S2 [place]. Regular rate and rhythm. No murmur, no gallop. RESPIRATORY SYSTEM: Normal AP diameter. No accessory muscle use. No wheezing, no crackles. ABDOMEN: Soft, bowel sounds present, nontender, no distention. Suprapubic catheter noted with noninfected port of entry. CENTRAL NERVOUS SYSTEM: No facial droop. Speech is clear. Obeys simple commands. Paraplegic. EXTREMITIES: No edema, no erythema seen. Urinary catheter with questionable blood clots/dark red urine collection. 56-year-old lady with history of multiple sclerosis and neurogenic bladder status post suprapubic catheter has been treated for acute confusion [resolved], UTI [status post antibiotic - extended course], left ureteral stone/obstructive uropathy seen by urology and left stent placement/cystoscopy this admission, L2 compression fracture evaluated by Dr. Yusuf and under conservative management. She had some dark red color urine with questionable blood clots in the collection, urology reevaluated the patient. Has plan for definite stone treatment. I have seen and examined the patient and have discussed the case with the provider above. I agree with the assessment and plan as stated. Subjective Patient seen and examined. Follow-up for CAUTI, left ureteral stone with obstructive uropathy. Patient resting in bed, appears comfortable. Offers no complaints. Remains afebrile. Denies chest pain and shortness of breath. No abdominal pain or nausea. Review of Systems Review of Systems: ROS per HPI, all other systems reviewed and negative Physical Exam Constitutional: no acute distress Respiratory: normal respiratory effort, lungs clear to auscultation Cardiovascular: Rate/Rhythm: regular rate and regular rhythm Vessels: normal peripheral pulses Extremities: no edema Gastrointestinal (Abdomen): Percussion/Palpation: abdomen soft; abdomen nontender Musculoskeletal: Chronic bilateral lower extremity weakness due to MS Skin: no rashes, warm and dry Psychiatric: A+Ox3, euthymic affect Genitourinary: Sultana catheter in place draining dark urine Results & Data Results & Data ([facility]) Vital Signs (Past 12 Hours) Vital Signs Temp Pulse Resp BP Pulse Ox 11/20/21 15:25 36.7 C 102 H 18 113/73 97 11/20/21 07:33 36.7 C 78 16 150/71 H 96 Laboratory Results Short CBC 11/20/21 Range/Units 05:22 WBC 6.82 (4.8-10.8) K/uL Hgb 11.1 L (12.0-16.0) g/dL Hct 35.1 L (37-47) % Plt Count 285 (130-400) K/uL BMP 11/20/21 05:22 Sodium 140 Potassium 4.0 Chloride 107 Carbon Dioxide 27 BUN 20 Creatinine 0.63 Glucose 90 Calcium 9.3 Urine 11/19/21 Range/Units Unknown Urine Color Brown Urine Appearance Cloudy A (Clear) Urine pH 7.0 (4.5-7.5) Ur Specific [place] 1.025 (1.000-1.030) Urine Protein 2+ H (Negative) Urine Glucose (UA) Negative (Negative)
[2021-11-20] MEDS: LORazepam 1 MG TAB PO SCH (20:19)
[2021-11-21] MEDS: ENOXAPARIN INJ 40 MG/0.4 ML SYR SQ SCH (05:36)
[2021-11-21] MEDS: CALCIUM CARBONATE 1250MG TAB PO SCH ×2 (08:21→20:12)
[2021-11-21] MEDS: SIMVASTATIN 20 MG TAB PO SCH (08:22)
[2021-11-21] MEDS: ADVANCED PROBIOTIC 1250 MG CAPSULE PO SCH (08:22)
[2021-11-21] MEDS: ASCORBIC ACID 500 MG TAB PO SCH (08:22)
[2021-11-21] MEDS: [UNRECOGNIZED DRUG - OTHER] PO SCH (08:24)
[2021-11-21] MEDS: POTASSIUM CHLORIDE CRTAB 20 MEQ TABCR PO SCH (08:26)
[2021-11-21] MEDS: HEPARIN 100 UNIT/ML 5ML FLUSH FLUSH PRN (10:15)
--- NOTE | 2021-11-21 15:28 | Hospitalist Progress Note ---
Date of Service November 21, 2021 Assessment & Plan (1) S/P ureteral stent placement: (2) Left ureteral stone: (3) Lumbar compression fracture: (4) UTI (urinary tract infection) due to urinary indwelling catheter: Plan: Acute confusion: Acute metabolic encephalopathy H/O severe multiple sclerosis with paraparesis and neurogenic bladder and has been wheelchair-bound Confusion likely due to complicated UTI Mental status back to baseline Resolved UTI (urinary tract infection) due to urinary indwelling catheter: Complicated urinary tract infection H/O neurogenic bladder with urine retention, left ureteral stone Urine Cx: Pseudomonas, Enterococcus Was on Zosyn>>Cefepime>>Zosyn Dr Romero had discussed with [facility] ID : Recommends 2 week course of IV Zosyn - course completed Due to hematuria on 11/19, repeat UA and culture were sent. Urine culture growing probable Pseudomonas species Patient afebrile without leukocytosis, would hold on antibiotics for now Will consult ID for recommendations Left ureteral stone Obstructive uropathy S/P cystoscopy, left stent placement, suprapubic cystostomy on 11/05/21 11/19/2021 -patient was noted to have dark sonia urine with blood clots, urology reconsulted Urology considering definitive stone treatment while inpatient - will reevaluate on Wednesday Lumbar compression fracture (L2) Appreciate orthopedics input Pain controlled Conservative management Needs follow-up with orthopedics upon discharge Multiple sclerosis: Severe multiple sclerosis with paraparesis and neurogenic bladder Wheelchair-bound S/P Intrathecal baclofen pump Her pump medication was changed on 30 October Appreciate pain management input. Follow up outpatient Elevated LFTs: Likely drug-induced liver injury secondary to [place] Monitor LFTs GI consult Likely plan for outpatient EUS Avoid hepatotoxic agents as able DVT Px: Lovenox SQ Disposition: Pending, per patient's , he is unable to care for the patient at home. Placement pending. Admission and Anticipated Discharge Date Admission Date: November 02, 2021 Supervising Physician Co-Signing Physician Notes UPON exam GENERAL: Alert and oriented x3. NAD, on RA. HEENT: No pallor, no icterus. Pupils equal, round and reactive to light. Oral mucosa moist. NECK: No JVD, no neck masses. HEART: S1 and S2 [place]. Regular rate and rhythm. No murmur, no gallop. RESPIRATORY SYSTEM: Normal AP diameter. No accessory muscle use. No wheezing, no crackles. ABDOMEN: Soft, bowel sounds present, nontender, no distention. Suprapubic catheter noted with noninfected port of entry. CENTRAL NERVOUS SYSTEM: No facial droop. Speech is clear. Obeys simple commands. Paraplegic. EXTREMITIES: No edema, no erythema seen. Urinary catheter with clearing urine of clots/blood. 56-year-old lady with history of multiple sclerosis and neurogenic bladder status post suprapubic catheter has been treated for acute confusion [resolved], UTI [status post antibiotic - extended course], left ureteral stone/obstructive uropathy seen by urology and left stent placement/cystoscopy this admission, L2 compression fracture evaluated by Dr. Yusuf and under conservative management. She had some dark red color urine with questionable blood clots in the collection, urology reevaluated the patient. Has plan for definite stone treatment - likely wednesday I have seen and examined the patient and have discussed the case with the provider above. I agree with the assessment and plan as stated. Subjective Patient seen and examined. Follow-up for CAUTI, left ureteral stone with obstructive uropathy. Patient up in wheelchair. Offers no complaints. Remains afebrile. Denies chest pain and shortness of breath. No abdominal pain or nausea. Review of Systems Review of Systems: ROS per HPI, all other systems reviewed and negative Physical Exam Constitutional: no acute distress Respiratory: normal respiratory effort, lungs clear to auscultation Cardiovascular: Rate/Rhythm: regular rate and regular rhythm Vessels: normal peripheral pulses Extremities: no edema Gastrointestinal (Abdomen): Percussion/Palpation: abdomen soft; abdomen nontender Musculoskeletal: Chronic lower extremity weakness due to MS Skin: no rashes, warm and dry Psychiatric: A+Ox3, euthymic affect Results & Data Results & Data ([facility]) Vital Signs (Past 12 Hours) Vital Signs Temp Pulse Resp BP Pulse Ox 11/21/21 07:46 37.0 C 90 18 113/75 95
--- NOTE | 2021-11-21 15:58 | Pain Management Progress Note ---
Date of Service November 21, 2021 Assessment & Plan (1) Multiple sclerosis: (2) Presence of intrathecal pump: Plan: 1. After a lengthy discussion regarding her continued desire to diminish intrathecal baclofen and discontinue chronic intrathecal baclofen utilization, it was again recommended to return her pump to minimal rate. Patient's intrathecal pump was interrogated. Her intrathecal pump was returned to minimal rate. Her dose adjusted from 9 mcg/day to around 1 mcg/day. Refer to pump print out in EMR. 2. Please contact pain service for reevaluation as needed upon this admission. Admission and Anticipated Discharge Date Admission Date: November 02, 2021 Subjective Mrs. Adams is a 56-year-old white female who is well-known to the pain service due to her history of multiple sclerosis and lower extremity spasticity which has previously required implantation of intrathecal baclofen pump and catheter delivery system. Pain service continues to care for intrathecal pump. The patient has been undergoing diminished dosing of baclofen through the intrathecal pump in attempt to determine necessity prior to her recent adm ission. Her pump was reduced to minimal rate prior to her recent admission. Upon this admission due to her symptomatic presentation her intrathecal pump was returned to her dose immediately prior to the adjustment of minimal rate. At this time it appears there was no relationship with her diminished intrathecal baclofen dosing and her symptomatic presentation due to discovery of urosepsis with left ureteral stone which required ureteral stent placement. The patient is awaiting further intervention of the ureteral stone and for placement for [facility] versus rehab setting. Patient has not experienced any difficulties with any breakthrough spasm. She denies any associated pain in the lower extremities. Patient has no further constitutional complaints. Plan of care discussed with Dr. Aspen Barrett. Physical Exam Physical Exam: General: Patient sitting in motorized wheelchair upon entering the room accompanied by her . Speech and thought process appropriate. Mood and affect appropriate. Cognition intact. Abdomen: Pump present in the left lower quadrant which is nontender. No evidence of edema, erythema or skin breakdown. Lower extremities: Patient has minimal rigidity. She has no evidence of breakthrough or spontaneous spasticity.
[2021-11-21] MEDS: LORazepam 1 MG TAB PO SCH (20:12)
[2021-11-22] MEDS: ENOXAPARIN INJ 40 MG/0.4 ML SYR SQ SCH (05:37)
[2021-11-22] MEDS: ADVANCED PROBIOTIC 1250 MG CAPSULE PO SCH (09:45)
[2021-11-22] MEDS: ASCORBIC ACID 500 MG TAB PO SCH (09:45)
[2021-11-22] MEDS: CALCIUM CARBONATE 1250MG TAB PO SCH ×2 (09:45→20:43)
[2021-11-22] MEDS: SIMVASTATIN 20 MG TAB PO SCH (09:46)
[2021-11-22] MEDS: [UNRECOGNIZED DRUG - OTHER] PO SCH (09:47)
[2021-11-22] MEDS: POTASSIUM CHLORIDE CRTAB 20 MEQ TABCR PO SCH (09:49)
--- NOTE | 2021-11-22 18:00 | Hospitalist Progress Note ---
Date of Service November 22, 2021 Assessment & Plan (1) S/P ureteral stent placement: (2) Left ureteral stone: (3) Lumbar compression fracture: (4) UTI (urinary tract infection) due to urinary indwelling catheter: Plan: Acute confusion: Acute metabolic encephalopathy H/O severe multiple sclerosis with paraparesis and neurogenic bladder and has been wheelchair-bound Confusion likely due to complicated UTI Mental status back to baseline Resolved UTI (urinary tract infection) due to urinary indwelling catheter: Complicated urinary tract infection H/O neurogenic bladder with urine retention, left ureteral stone Urine Cx: Pseudomonas, Enterococcus Was on Zosyn>>Cefepime>>Zosyn Dr Romero had discussed with [facility] ID : Recommends 2 week course of IV Zosyn - course completed Due to hematuria on 11/19, repeat UA and culture were sent. Urine culture growing Pseudomonas species Patient afebrile without leukocytosis, would hold on antibiotics for now Will consult ID for recommendations Left ureteral stone Obstructive uropathy S/P cystoscopy, left stent placement, suprapubic cystostomy on 11/05/21 11/19/2021 -patient was noted to have dark sonia urine with blood clots, urology reconsulted Urology considering definitive stone treatment while inpatient - will reevaluate on Wednesday Lumbar compression fracture (L2) Appreciate orthopedics input Pain controlled Conservative management Needs follow-up with orthopedics upon discharge Multiple sclerosis: Severe multiple sclerosis with paraparesis and neurogenic bladder Wheelchair-bound S/P Intrathecal baclofen pump Her pump medication was changed on 30 October Appreciate pain management input. Follow up outpatient Elevated LFTs: Likely drug-induced liver injury secondary to [place] Monitor LFTs GI evaluated - Likely plan for outpatient EUS Avoid hepatotoxic agents as able DVT Px: Lovenox SQ Disposition: Pending, per patient's , he is unable to care for the patient at home. Placement pending. Admission and Anticipated Discharge Date Admission Date: November 02, 2021 Subjective Patient lying in bed, no micromanaging, no new acute events overnight. Urinary collection clearing off of blood/clots. Patient denies any new acute events overnight and denies any fever/chills/chest pain/palpitations/other severe symptoms. Patient reports eating okay. Physical Exam Physical Exam: GENERAL: Alert and oriented x3. NAD, on RA. HEENT: No pallor, no icterus. Pupils equal, round and reactive to light. Oral mucosa moist. NECK: No JVD, no neck masses. HEART: S1 and S2 [place]. Regular rate and rhythm. No murmur, no gallop. RESPIRATORY SYSTEM: Normal AP diameter. No accessory muscle use. No wheezing, no crackles. ABDOMEN: Soft, bowel sounds present, nontender, no distention. Suprapubic catheter noted with noninfected port of entry. CENTRAL NERVOUS SYSTEM: No facial droop. Speech is clear. Obeys simple commands. Paraplegic. EXTREMITIES: No edema, no erythema seen. Urinary catheter with clearing urine of blood. Results & Data Results & Data ([facility]) Vital Signs (Past 12 Hours) Vital Signs Temp Pulse Resp BP Pulse Ox 11/22/21 16:38 37.0 C 108 H 18 136/88 98 11/22/21 07:44 36.7 C 77 18 116/75 98
[2021-11-22] MEDS: LORazepam 1 MG TAB PO SCH (20:43)
[2021-11-23] MEDS: ENOXAPARIN INJ 40 MG/0.4 ML SYR SQ SCH (05:38)
[2021-11-23] MEDS: POTASSIUM CHLORIDE CRTAB 20 MEQ TABCR PO SCH (08:34)
[2021-11-23] MEDS: ASCORBIC ACID 500 MG TAB PO SCH (08:35)
[2021-11-23] MEDS: ADVANCED PROBIOTIC 1250 MG CAPSULE PO SCH (08:35)
[2021-11-23] MEDS: CALCIUM CARBONATE 1250MG TAB PO SCH ×2 (08:35→20:48)
[2021-11-23] MEDS: SIMVASTATIN 20 MG TAB PO SCH (08:36)
[2021-11-23] MEDS: [UNRECOGNIZED DRUG - OTHER] PO SCH (08:36)
--- NOTE | 2021-11-23 16:49 | Hospitalist Progress Note ---
Date of Service November 23, 2021 Assessment & Plan (1) S/P ureteral stent placement: (2) Left ureteral stone: (3) Lumbar compression fracture: (4) UTI (urinary tract infection) due to urinary indwelling catheter: Plan: Acute confusion: Acute metabolic encephalopathy H/O severe multiple sclerosis with paraparesis and neurogenic bladder and has been wheelchair-bound Confusion likely due to complicated UTI Mental status back to baseline Resolved UTI (urinary tract infection) due to urinary indwelling catheter: Complicated urinary tract infection H/O neurogenic bladder with urine retention, left ureteral stone Urine Cx: Pseudomonas, Enterococcus Was on Zosyn>>Cefepime>>Zosyn Dr Romero [facility] : Recommends 2 week course of IV Zosyn - course completed Due to hematuria on 11/19, repeat UA and culture were sent. Urine culture growing Pseudomonas species Patient afebrile without leukocytosis, would hold on antibiotics for now, continue to monitor. Left ureteral stone Obstructive uropathy S/P cystoscopy, left stent placement, suprapubic cystostomy on 11/05/21 11/19/2021 -patient was noted to have dark sonia urine with blood clots, urology reconsulted Urology considering definitive stone treatment while inpatient - will reevaluate on Wednesday. NPO midnight Lumbar compression fracture (L2) Appreciate orthopedics input Pain controlled Conservative management Needs follow-up with orthopedics upon discharge Multiple sclerosis: Severe multiple sclerosis with paraparesis and neurogenic bladder Wheelchair-bound S/P Intrathecal baclofen pump Her pump medication was changed on 30 October Appreciate pain management input. Follow up outpatient Elevated LFTs: Likely drug-induced liver injury secondary to [place] Monitor LFTs GI evaluated - Likely plan for outpatient EUS Avoid hepatotoxic agents as able DVT Px: Lovenox SQ Disposition: Pending, per patient's , he is unable to care for the patient at home. Placement pending. Admission and Anticipated Discharge Date Admission Date: November 02, 2021 Subjective Patient lying in bed, on RA, no new acute events overnight. Urinary collection clear of clots/dirty/blood. Patient denies any new acute events overnight and denies any fever/chills/chest pain/palpitations/other severe symptoms. Patient reports eating okay. Physical Exam Physical Exam: GENERAL: Alert and oriented x3. NAD, on RA. HEENT: No pallor, no icterus. Pupils equal, round and reactive to light. Oral mucosa moist. NECK: No JVD, no neck masses. HEART: S1 and S2 [place]. Regular rate and rhythm. No murmur, no gallop. RESPIRATORY SYSTEM: Normal AP diameter. No accessory muscle use. No wheezing, no crackles. ABDOMEN: Soft, bowel sounds present, nontender, no distention. Suprapubic catheter noted with noninfected port of entry. CENTRAL NERVOUS SYSTEM: No facial droop. Speech is clear. Obeys simple commands. Paraplegic. EXTREMITIES: No edema, no erythema seen. Urinary catheter with clear yellow urine collection in situ Results & Data Results & Data ([facility]) Vital Signs (Past 12 Hours) Vital Signs Temp Pulse Pulse Resp BP BP Pulse Ox 11/23/21 16:00 36.8 C 118 H 20 125/82 99 11/23/21 08:53 36.6 C 92 H 18 129/78 97
[2021-11-23] MEDS: LORazepam 1 MG TAB PO SCH (20:48)
[2021-11-24] MEDS: ENOXAPARIN INJ 40 MG/0.4 ML SYR SQ SCH (05:50)
[2021-11-24] MEDS: SIMVASTATIN 20 MG TAB PO SCH (08:23)
[2021-11-24] MEDS: ADVANCED PROBIOTIC 1250 MG CAPSULE PO SCH (08:23)
[2021-11-24] MEDS: CALCIUM CARBONATE 1250MG TAB PO SCH ×2 (08:23→21:09)
[2021-11-24] MEDS: [UNRECOGNIZED DRUG - OTHER] PO SCH (08:24)
[2021-11-24] MEDS: ASCORBIC ACID 500 MG TAB PO SCH (08:24)
[2021-11-24] MEDS: POTASSIUM CHLORIDE CRTAB 20 MEQ TABCR PO SCH (08:27)
--- NOTE | 2021-11-24 17:01 | Hospitalist Progress Note ---
Date of Service November 24, 2021 Assessment & Plan (1) S/P ureteral stent placement: (2) Left ureteral stone: (3) Lumbar compression fracture: (4) UTI (urinary tract infection) due to urinary indwelling catheter: Plan: Acute confusion: Acute metabolic encephalopathy H/O severe multiple sclerosis with paraparesis and neurogenic bladder and has been wheelchair-bound Confusion likely due to complicated UTI Mental status back to baseline Resolved UTI (urinary tract infection) due to urinary indwelling catheter: Complicated urinary tract infection H/O neurogenic bladder with urine retention, left ureteral stone Urine Cx: Pseudomonas, Enterococcus Was on Zosyn>>Cefepime>>Zosyn Dr Romero [facility] : Recommends 2 week course of IV Zosyn - course completed Due to hematuria on 11/19, repeat UA and culture were sent. Urine culture growing Pseudomonas species Patient afebrile without leukocytosis, would hold on antibiotics for now, continue to monitor. Left ureteral stone Obstructive uropathy S/P cystoscopy, left stent placement, suprapubic cystostomy on 11/05/21 11/19/2021 -patient was noted to have dark sonia urine with blood clots, urology reconsulted Urology considering definitive stone treatment while inpatient - d/w urology, plan for Wednesday can resume her diet today Lumbar compression fracture (L2) Appreciate orthopedics input Pain controlled Conservative management Needs follow-up with orthopedics upon discharge Multiple sclerosis: Severe multiple sclerosis with paraparesis and neurogenic bladder Wheelchair-bound S/P Intrathecal baclofen pump Her pump medication was changed on 30 October Appreciate pain management input. Follow up outpatient Elevated LFTs: Likely drug-induced liver injury secondary to [place] Monitor LFTs GI evaluated - Likely plan for outpatient EUS Avoid hepatotoxic agents as able DVT Px: Lovenox SQ Disposition: Pending, per patient's , he is unable to care for the patient at home. Placement pending. Admission and Anticipated Discharge Date Admission Date: November 02, 2021 Subjective Patient lying in bed, on RA, no new acute events overnight. Urinary collection clear of clots/dirty/blood. Patient denies any new acute events overnight and denies any fever/chills/chest pain/palpitations/other severe symptoms. Patient reports eating okay. Physical Exam Physical Exam: GENERAL: Alert and oriented x3. NAD, on RA. HEENT: No pallor, no icterus. Pupils equal, round and reactive to light. Oral mucosa moist. NECK: No JVD, no neck masses. HEART: S1 and S2 [place]. Regular rate and rhythm. No murmur, no gallop. RESPIRATORY SYSTEM: Normal AP diameter. No accessory muscle use. No wheezing, no crackles. ABDOMEN: Soft, bowel sounds present, nontender, no distention. Suprapubic cat heter noted with noninfected port of entry. CENTRAL NERVOUS SYSTEM: No facial droop. Speech is clear. Obeys simple commands. Paraplegic. EXTREMITIES: No edema, no erythema seen. Urinary catheter with clear yellow urine collection in situ Results & Data Results & Data ([facility]) Vital Signs (Past 12 Hours) Vital Signs Temp Pulse Resp BP Pulse Ox 11/24/21 15:48 36.6 C 89 16 122/77 97 11/24/21 07:39 36.8 C 77 15 111/74 98 11/24/21 07:03 36.7 C 76 18 115/75 95
[2021-11-24] MEDS: LORazepam 1 MG TAB PO SCH (21:09)
[2021-11-25] MEDS: ENOXAPARIN INJ 40 MG/0.4 ML SYR SQ SCH (05:04)
[2021-11-25] MEDS: SIMVASTATIN 20 MG TAB PO SCH (08:50)
[2021-11-25] MEDS: ADVANCED PROBIOTIC 1250 MG CAPSULE PO SCH (08:50)
[2021-11-25] MEDS: POTASSIUM CHLORIDE CRTAB 20 MEQ TABCR PO SCH (08:50)
[2021-11-25] MEDS: CALCIUM CARBONATE 1250MG TAB PO SCH ×2 (08:50→20:41)
[2021-11-25] MEDS: ASCORBIC ACID 500 MG TAB PO SCH (08:50)
[2021-11-25] MEDS: [UNRECOGNIZED DRUG - OTHER] PO SCH (08:51)
--- NOTE | 2021-11-25 13:31 | Urology Progress Note ---
Date of Service November 25, 2021 Assessment & Plan (1) Left ureteral stone: (2) Bladder stone: (3) S/P ureteral stent placement: (4) Chronic suprapubic catheter: Plan: 56yo F with multiple sclerosis admitted to the hospital on 11/03 due to altered mental status secondary to acute UTI. She has a suprapubic tube in place chronically, and was found to be infected with Pseudomonas. A CT scan was performed on 11/03/2021 and demonstrated a 1.6 cm stone in the bladder, as well as a 7 mm stone in the left ureter.She underwent cystoscopy, left stent placement, suprapubic cystostomy with Dr. Gonzalez on 11/05/21. - Plan of care reviewed with Dr. Gonzalez - She remains afebrile, VSS. - Subjectively doing very well. - SP tube intact, patent and draining appropriately. - She completed an extended course of IV Zosyn x 14 days on 11/16 as recommended by ID for Pseudomonas, Enterococcus UTI - Repeat UC&S on 11/20 grew Pseudomonas - No further antibiotics were started as pt has a chronic indwelling catheter and was afebrile and without leukocytosis - As she remains in hospital awaiting placement, discussed with pt option for stone treatment while she remains inpatient. She is agreeable and would like to proceed. - Will plan to proceed to OR tomorrow for Cystolitholapaxy, Left Ureteroscopy, Retrograde Pyelogram, Laser destruction or extraction of the stone, exchange of left stent catheter and Suprapubic catheter exchange with Dr. Gonzalez given there are no acute changes in her status. - Risks and benefits to be reviewed with patient by Dr. Gonzalez. - OR notified. Covid test 11/02 negative. Will cover with IV Ampicillin and Gentamicin preoperatively. - She is agreeable with the plan, all questions answered. - Plan to make NPO at midnight for procedure tomorrow. - Continue supportive care and management per primary team - Will continue to follow Admission and Anticipated Discharge Date Admission Date: November 02, 2021 Supervising Physician Co-Signing Physician Notes I agree with the above documentation. We will plan for treatment of Ms. Adams's ureteral and bladder stones on 11/26/21. Subjective Pt examined at bedside this AM. Patient up in wheelchair. Feeling well overall. Offered no complaints. Remains afebrile. SP tube in place, draining concentrated urine with sediment noted in tubing. Review of Systems Constitutional: as per Subjective / HPI Genitourinary: as per Subjective / HPI Physical Exam Constitutional: well developed and well nourished; no acute distress and not ill appearing Neck: normal visual inspection Respiratory: normal respiratory effort and able to speak in complete sen tences; no respiratory distress and no labored breathing Gastrointestinal (Abdomen): Inspection/Auscultation: abdomen normal to inspection; abdomen not distended Skin: No visible rashes noted Neurologic: awake Psychiatric: Orientation: alert, oriented x 3 and cooperative Genitourinary: SP tube intact, draining concentrated urine with sediment noted in tubing. Results & Data ([facility]) Vital Signs (Past 12 Hours) Vital Signs Temp Pulse Resp BP Pulse Ox 11/25/21 07:39 36.7 C 88 16 109/70 95 PG Care Time/CCT Total # of Minutes Spent Total Time Spent with Patient: Total time spent is greater than 50% in coordination of care (as documented) at patient's floor/unit and/or counseling patient: Coding Level of Care Code 86458 Subseq Hosp Care Lvl 2 Diagnoses Left ureteral stone N20.1 Bladder stone N21.0 S/P ureteral stent placement Z96.0 Chronic suprapubic catheter Z93.59
--- NOTE | 2021-11-25 17:09 | Hospitalist Progress Note ---
Date of Service November 25, 2021 Assessment & Plan (1) S/P ureteral stent placement: (2) Left ureteral stone: (3) Lumbar compression fracture: (4) UTI (urinary tract infection) due to urinary indwelling catheter: Plan: Acute confusion: Acute metabolic encephalopathy H/O severe multiple sclerosis with paraparesis and neurogenic bladder and has been wheelchair-bound Confusion likely due to complicated UTI Mental status back to baseline Resolved UTI (urinary tract infection) due to urinary indwelling catheter: Complicated urinary tract infection H/O neurogenic bladder with urine retention, left ureteral stone Urine Cx: Pseudomonas, Enterococcus Was on Zosyn>>Cefepime>>Zosyn Dr Romero had discussed with Sherif Hayes : Recommends 2 week course of IV Zosyn - course completed Due to hematuria on 11/19, repeat UA and culture were sent. Urine culture growing Pseudomonas species Patient afebrile without leukocytosis, would hold on antibiotics for now, continue to monitor. Left ureteral stone Obstructive uropathy S/P cystoscopy, left stent placement, suprapubic cystostomy on 11/05/21 11/19/2021 -patient was noted to have dark sonia urine with blood clots, urology reconsulted Urology considering definitive stone treatment while inpatient - tomorrow, NPO midnight Lumbar compression fracture (L2) Appreciate orthopedics input Pain controlled Conservative management Needs follow-up with orthopedics upon discharge Multiple sclerosis: Severe multiple sclerosis with paraparesis and neurogenic bladder Wheelchair-bound S/P Intrathecal baclofen pump Her pump medication was changed on 30 October Appreciate pain management input. Follow up outpatient Elevated LFTs: Likely drug-induced liver injury secondary to [place] Monitor LFTs GI evaluated - Likely plan for outpatient EUS Avoid hepatotoxic agents as able DVT Px: Lovenox SQ Disposition: Pending, per patient's , he is unable to care for the patient at home. Placement pending. Admission and Anticipated Discharge Date Admission Date: November 02, 2021 Subjective Patient seen and examined at the bedside. On room air, NAD, no new acute events overnight. Patient reports eating and moving bowels okay. Patient denies any fever/chills/chest pain/bilirubin/other review of symptoms. Urinary catheter in situ with yellow urine collection, no blood/blood clots noted. Physical Exam Physical Exam: GENERAL: Alert and oriented x3. NAD, on RA. HEENT: No pallor, no icterus. Pupils equal, round and reactive to light. Oral mucosa moist. NECK: No JVD, no neck masses. HEART: S1 and S2 [place]. Regular rate and rhythm. No murmur, no gallop. RESPIRATORY SYSTEM: Normal AP diameter. No accessory muscle use. No wheezing, no crackles. ABDOMEN: Soft, bowel sounds present, nontender, no distention. Suprapubic catheter noted with noninfected port of entry. CENTRAL NERVOUS SYSTEM: No facial droop. Speech is clear. Obeys simple commands. Paraplegic. EXTREMITIES: No edema, no erythema seen. Urinary catheter with clear yellow urine collection in situ, with some sediments/no blood or clots noted. Results & Data Results & Data ([facility]) Vital Signs (Past 12 Hours) Vital Signs Temp Pulse Resp BP Pulse Ox 11/25/21 16:35 36.6 C 104 H 16 128/82 96 11/25/21 07:39 36.7 C 88 16 109/70 95
[2021-11-25] MEDS: LORazepam 1 MG TAB PO SCH (20:41)
[2021-11-26] MEDS: ENOXAPARIN INJ 40 MG/0.4 ML SYR SQ SCH (05:18)
[2021-11-26] MEDS ORDERED: GENTAMICIN SULFATE 420 MG in DEXTROSE 5% 100 ML IV SCH (06:00)
[2021-11-26] MEDS ORDERED: AMPICILLIN 2,000 MG in SODIUM CHLOR 0.9% AD-VAN 100 ML IV SCH (06:00)
--- NOTE | 2021-11-26 07:16 | Urology Progress Note ---
Date of Service November 26, 2021 Assessment & Plan (1) Left ureteral stone: Plan: 6 mm left ureteral stone present on CT scan -left ureteral stent placed on 11/05/2021. (2) Bladder stone: Plan: 1.5 cm bladder stone on CT scan Plan: 56yo F with multiple sclerosis admitted to the hospital on 11/03 due to altered mental status secondary to acute UTI. S/P left ureteral stent placement on 11/05/2021. She has been treated with an appropriate course of antibiotics and is now afebrile. Due to the fact that she remains in the hospital, we discussed treating her bladder stone and left ureteral stone while she is here inpatient. This morning we discussed the risks and benefits of the proposed treatment (cystolitholapaxy, left ureteroscopy with laser lithotripsy, left ureteral stent removal or exchange, suprapubic tube exchange). Specifically we discussed the risks of bleeding, infection, injury to the urinary tract, need for additional procedure. She expressed understanding would like to proceed with stone treatment today. Plan: - To OR today for cystoscopy litholapaxy, left ureteroscopy with laser lithotripsy, left ureteral stent exchange or removal, suprapubic tube exchange - Perioperative IV Ampicillin and Gentamicin - She is agreeable with the plan, all questions answered. - Continue NPO until procedure. Admission and Anticipated Discharge Date Admission Date: November 02, 2021 Subjective Pt reports she is feeling well. She denies fevers/chills, nausea/vomiting, chest pain or shortness of breath. She is tolerating her stent well. Physical Exam Physical Exam: Well-appearing, NAD Respiratory: Breathing comfortably on room air Skin: Warm and dry Genitourinary: SP tube in place, draining clear yellow urine Results & Data ([facility]) Vital Signs (Past 12 Hours) Vital Signs Temp Pulse Resp BP Pulse Ox 11/25/21 22:50 36.6 C 89 16 131/83 95 PG Care Time/CCT Total # of Minutes Spent Total Time Spent with Patient: Total time spent is greater than 50% in coordination of care (as documented) at patient's floor/unit and/or counseling patient: Coding Level of Care Code 04269 Subseq Hosp Care Lvl 2 Diagnoses Left ureteral stone N20.1 Bladder stone N21.0
[2021-11-26] MEDS: ADVANCED PROBIOTIC 1250 MG CAPSULE PO SCH (08:30)
[2021-11-26] MEDS: SIMVASTATIN 20 MG TAB PO SCH (08:30)
[2021-11-26] MEDS: ASCORBIC ACID 500 MG TAB PO SCH (08:31)
[2021-11-26] MEDS: CALCIUM CARBONATE 1250MG TAB PO SCH ×2 (08:31→21:11)
[2021-11-26] MEDS: [UNRECOGNIZED DRUG - OTHER] PO SCH (08:31)
[2021-11-26] MEDS: HEPARIN 100 UNIT/ML 5ML FLUSH FLUSH PRN (08:33)
[2021-11-26] MEDS: POTASSIUM CHLORIDE CRTAB 20 MEQ TABCR PO SCH (08:39)
--- NOTE | 2021-11-26 10:39 | Hospitalist Progress Note ---
Date of Service November 26, 2021 Assessment & Plan (1) S/P ureteral stent placement: (2) Left ureteral stone: (3) Lumbar compression fracture: (4) UTI (urinary tract infection) due to urinary indwelling catheter: Plan: Acute confusion: Acute metabolic encephalopathy H/O severe multiple sclerosis with paraparesis and neurogenic bladder and has been wheelchair-bound Confusion likely due to complicated UTI Mental status back to baseline Resolved UTI (urinary tract infection) due to urinary indwelling catheter: Complicated urinary tract infection H/O neurogenic bladder with urine retention, left ureteral stone Urine Cx: Pseudomonas, Enterococcus Was on Zosyn>>Cefepime>>Zosyn Dr Romero had discussed with Sherif Hayes : Recommends 2 week course of IV Zosyn - course completed Due to hematuria on 11/19, repeat UA and culture were sent. Urine culture grew Pseudomonas species Patient afebrile without leukocytosis. Not on antibiotics. Possible colonization Left ureteral stone Obstructive uropathy S/P cystoscopy, left stent placement, suprapubic cystostomy on 11/05/21 11/19/2021 -patient was noted to have dark sonia urine with blood clots, urology reconsulted Planned for stone treatment today Lumbar compression fracture (L2) Appreciate orthopedics input Pain controlled Conservative management Needs follow-up with orthopedics upon discharge Multiple sclerosis: Severe multiple sclerosis with paraparesis and neurogenic bladder Wheelchair-bound S/P Intrathecal baclofen pump Her pump medication was changed on 30 October Appreciate pain management input. Follow up outpatient Elevated LFTs: Likely drug-induced liver injury secondary to [place] Monitor LFTs GI evaluated - Likely plan for outpatient EUS Avoid hepatotoxic agents as able DVT Px: Lovenox SQ Disposition: Pending, per patient's , he is unable to care for the patient at home. Placement pending. Admission and Anticipated Discharge Date Admission Date: November 02, 2021 Subjective Patient seen and examined this morning. Denied any complaints. Denied any chest pain, cough, shortness of breath Denies any nausea, vomiting, abdominal pain, diarrhea Patient waiting for OR for planned stone management per urology this morning Physical Exam Constitutional: + well hydrated; no acute distress Eyes: PERRL, conjunctivae normal, anicteric sclerae ENMT: external ear and nose normal, oropharynx normal Respiratory: normal respiratory effort, lungs clear to auscultation Cardiovascular: Rate/Rhythm: regular rate and regular rhythm S1-S2 Gastrointestinal (Abdomen): normal bowel sounds, soft, nontender, no hepatosplenomegaly Musculoskeletal: Paraplegic Neurologic: PERRL, EOMI, accommodation nl, no face palsy, no dysarthria Psychiatric: A+Ox3, euthymic affect Genitourinary: Suprapubic [place] in situ Results & Data Results & Data ([facility]) Vital Signs (Past 12 Hours) Vital Signs Temp Pulse Pulse Resp BP Pulse Ox 11/26/21 07:25 36.5 C 74 16 114/74 98 11/25/21 22:50 36.6 C 89 16 131/83 95
[2021-11-26] MEDS ORDERED: LIDOCAINE 2% 2 ML VIAL/AMP(20MG/ML) INFIL ONE (13:20)
[2021-11-26] MEDS ORDERED: ONDANSETRON INJ 2 MG/ML 2 ML VIAL ONE (13:20)
[2021-11-26] MEDS ORDERED: PROPOFOL IV EMULSION 10 MG/ML 20 ML VIAL IV ONE (13:20)
[2021-11-26] MEDS ORDERED: DEXAMETHASONE SOD INJ 4 MG/ML VIAL ONE (13:20)
[2021-11-26] MEDS ORDERED: MIDAZOLAM HCL 1 MG/ML 2ML VIAL ONE (13:21)
[2021-11-26] MEDS ORDERED: fentaNYL citrate 100 MCG/2 ML VIAL ONE (13:21)
--- NOTE | 2021-11-26 13:44 | Anesthesiology Consultation ---
Date of Service November 26, 2021 Assessment & Plan (1) Encounter for pre-operative examination: Chart Review Chart Review: Acceptable Risk for Surgery (Pt on lovenox - will d/w Dr Gonzalez) History Surgery Operation Date: 11/05/21 14:00 Proposed Procedures p Cystoscopy, Left Stent Placement - Leon Gonzalez MD Operation Date: 11/26/21 11:50 Proposed Procedures p Cystolithopaxy, Left Ureteroscopy, Retrograde Pyelogram, - Leon Gonzalez MD s Laser Destruction or Extraction of Stone, Exchange Left Stent, Suprapubic Cath Exchange - Leon Gonzalez MD Height/Weight Height: 5 ft 3 in Weight: 69.9 kg Allergies Allergy/AdvReac Type Severity Reaction Status Date / Time No Known Allergies Allergy ` Verified 11/02/21 19:05 Medications Home Medications Medication Instructions Recorded Confirmed Last Taken ascorbic acid (vitamin C) 500 mg 500 mg PO DAILY 08/26/18 11/02/21 11/01/21 tablet calcium carbonate 160 mg calcium 400 mg PO BID tab 08/26/18 11/02/21 11/01/21 (400 mg) chewable tablet lorazepam 1 mg tablet (Ativan) 1 mg PO HS tab 08/26/18 11/02/21 11/01/21 baclofen pump INTRATHECAL 11/06/19 10/30/21 11/01/21 siponimod 2 mg tablet (Mayzent) 2 mg PO DAILY tab 04/17/20 11/03/21 Unknown furosemide 40 mg tablet 40 mg PO DAILY 05/06/21 11/02/21 11/01/21 simvastatin 20 mg tablet 20 mg PO DAILY 05/06/21 11/02/21 11/01/21 baclofen 10 mg tablet 10 mg PO TID #30 tab 10/15/21 11/02/21 11/02/21 Active Medications Generic Name Dose Route Start Last Admin Trade Name Freq PRN Reason Stop Dose Admin Acetaminophen 650 mg 11/03/21 02:25 11/19/21 14:25 Acetaminophen 325 Mg Tab PO 12/03/21 02:24 650 mg Q4H PRN Administration Pain or Fever Ascorbic Acid 500 mg 11/03/21 09:00 11/26/21 08:31 Ascorbic Acid 500 Mg Tab PO 12/03/21 08:59 500 mg DAILY CAMILA Administration Baclofen 10 mg 11/04/21 07:29 11/06/21 08:06 Baclofen 10 Mg Tab PO 12/03/21 08:59 10 mg TID PRN Administration spasm Calcium Carbonate 1,250 mg 11/03/21 09:00 11/26/21 08:31 Calcium Carbonate 1250mg Tab PO 12/03/21 08:59 1,250 mg BID CAMILA Administration Enoxaparin Sodium 40 mg 11/03/21 06:00 11/26/21 05:18 Enoxaparin Inj 40 Mg/0.4 Ml Syr SQ 12/03/21 05:59 40 mg Q24H CAMILA Administration Heparin Sodium (Porcine) 5 ml 11/06/21 01:01 11/26/21 08:33 Heparin 100 Unit/Ml 5ml Flush FLUSH 12/06/21 01:00 5 ml PRN PRN Administration Flush Gentamicin Sulfate 420 mg/ 110.5 mls @ 100 mls/hr 11/26/21 06:00 11/26/21 06:32 Dextrose IV 11/26/21 15:00 Infused PREOP CAMILA Infusion Ampicillin Sodium 2,000 mg/ 100 mls @ 200 mls/hr 11/26/21 06:00 11/26/21 08:30 Sodium Chloride IV 11/26/21 15:00 Infused PREOP CAMILA Infusion Ibuprofen 200 mg 11/19/21 22:21 11/19/21 23:03 Ibuprofen 200 Mg Tab PO 12/19/21 22:20 200 mg Q6H PRN Administration Mild Pain Lactobacillus Acidoph/Casei/Rhamnos 2 cap 11/13/21 09:00 11/26/21 08:30 Advanced Probiotic 1250 Mg Capsule PO 12/13/21 08:59 2 cap QAM CAMILA Administration Lorazepam 1 mg 11/03/21 21:00 11/25/21 20:41 Lorazepam 1 Mg Tab PO 12/03/21 20:59 1 mg HS CAMILA Administration Mayzent: Non- 1 ea 11/04/21 09:00 11/26/21 08:31 Formulary Patient's PO 12/04/21 08:59 Not Given Own Med DAILY CAMILA Ondansetron HCl 4 mg 11/03/21 02:25 11/03/21 08:51 Ondansetron Inj 2 Mg/Ml 2 Ml Vial IV 12/03/21 02:24 4 mg Q6H PRN Administration Nausea Potassium Chloride 20 meq 11/09/21 09:00 11/26/21 08:39 Potassium Chloride Crtab 20 Meq Tabcr PO 12/09/21 08:59 20 meq DAILY CAMILA Administration Simvastatin 20 mg 11/03/21 09:00 11/26/21 08:30 Simvastatin 20 Mg Tab PO 12/03/21 08:59 20 mg DAILY CAMILA Administration NPO Date Last Intake of Fluids: 11/25/21 Time Last Intake of Fluids: 23:59 Last Intake of Fluids Comment: sip with meds Date Last Intake of Solids: 11/25/21 Time Last Intake of Solids: 18:00 Past Medical History Medical History Acute confusion Lumbar compression fracture L2-subacute 11/02/2021 CT scan Multiple sclerosis Presence of intrathecal pump since 2008 Sepsis Past Surgical History Surgical History Chronic suprapubic catheter 2012 H/O section S/P insertion of intrathecal pump 2008 Social History Smoking Status: Never smoker Hx Alcohol Use: No Hx Substance Use: No Physical Exam Vital Signs Last Vital Signs Temp 36.7 C 11/26/21 11:47 Pulse 82 11/26/21 11:47 Resp 18 11/26/21 11:47 BP 130/90 11/26/21 11:47 Pulse Ox 98 11/26/21 11:47 Testing Laboratory Results 11/20/21 05:22 11/20/21 05:22 PT 12.0 Seconds (9.0-12.0) 11/02/21 17:30 INR 1.2 (0.9-1.1) H 11/02/21 17:30 APTT 44.3 Seconds (21.0-31.0) H 11/02/21 17:30 Urine Color Brown 11/19/21 Unknown Urine Appearance Cloudy (Clear) A 11/19/21 Unknown Urine pH 7.0 (4.5-7.5) 11/19/21 Unknown Ur Specific Ivor 1.025 (1.000-1.030) 11/19/21 Unknown Urine Protein 2+ (Negative) H 11/19/21 Unknown Urine Glucose (UA) Negative (Negative) 11/19/21 Unknown Urine Ketones Negative (Negative) 11/19/21 Unknown Urine Nitrite Positive (Negative) A 11/19/21 Unknown Ur Leukocyte Esterase 3+ (Negative) H 11/19/21 Unknown Urine WBC (Auto) >30 /hpf (0-5) H 11/02/21 19:28 Urine RBC (Auto) 5-10 /hpf (0-4) H 11/02/21 19:28 U Hyaline Cast (Auto) 0 /lpf (0-5) 11/02/21 19:28 U Epithel Cells (Auto) >30 /lpf (0-5) H 11/02/21 19:28 Urine Bacteria (Auto) 3+ (Negative) H 11/02/21 19:28 Urine RBC >30 /hpf (0-4) H 11/19/21 Unknown Urine WBC 5-10 /hpf (0-5) H 11/19/21 Unknown Ur Epithelial Cells 0-5 /lpf (0-5) 11/19/21 Unknown 11/20/21 11:43 Urine Culture - Final Urine,Suprapubic Pseudomonas aeruginosa 11/05/21 10:15 Urine Culture - Final Urine,Kidney Enterococcus faecalis Pseudomonas aeruginosa 11/02/21 19:22 Aerobic Blood Culture - Final Blood No growth in Aerobic bottle after 5 days. Anaerobic Blood Culture - Final No growth in Anaerobic bottle after 5 days. 11/02/21 19:28 Urine Culture - Final Urine,Clean Catch Pseudomonas aeruginosa Enterococcus faecalis Electrocardiogram Date: 11/02/21 Findings: + NSR @ (90) pvcs
[2021-11-26] MEDS ORDERED: ONDANSETRON INJ 2 MG/ML 2 ML VIAL IV PRN (13:50)
[2021-11-26] MEDS ORDERED: fentaNYL citrate 100 MCG/2 ML VIAL IV PRN (13:50)
[2021-11-26] MEDS ORDERED: ATROPINE SULFATE 0.1 MG/ML 10ML SYR IV PRN (13:50)
[2021-11-26] MEDS ORDERED: DIATRIZOATE MEGLUMINE 30% 100ML VIAL INSTIL PRN (14:49)
--- NOTE | 2021-11-26 15:47 | Fluoroscopy Report ---
FL retrograde includes kub CLINICAL HISTORY: LEFT RETROGRADE COMPARISON STUDY: 11/05/2021 FLUOROSCOPY TIME: 14 second. FLUOROSCOPIC IMAGES: 2 FINDINGS: On the initial image, a guidewire is seen extending into the left renal pelvis. On the seco nd image obtained, double-J ureteral stent is present. IMPRESSION: Status post placement of double-J ureteral stent on the left. ACT 112: Negative or not required by law. Electronically signed by: Grupo Leyva M.D. 11/26/2021 3:46 PM
--- NOTE | 2021-11-26 15:52 | Operative Report ---
PG Post Operative Report Pre & Post Diagnosis Operation Date: 11/26/21 11:50 Pre-Op Diagnosis: Bladder stone and left ureteral stone. Post-Op Diagnosis: Bladder stone and left ureteral stone. I identified the patient and participated in the time-out.: Yes Procedure Operation Date: 11/26/21 11:50 Actual Procedures p Cystolitholapaxy, Left Ureteroscopy, Retrograde Pyelogram,Laser Destruction or Extraction of Stone, Exchange Left Stent, (Not Applicable) - Leon Gonzalez MD s Suprapubic Cath Exchange - Leon Gonzalez MD Surgeon Leon Gonzalez MD Stove Carriage Operator none Estimated Blood Loss 5 Findings Consistent with Post-Op Diagnosis 1.5 cm bladder stone visualized and fragmented with laser lithotripsy. 7 mm left ureteral stone, fragmented with laser lithotripsy and extracted. Successful left ureteral stent exchange. Successful SP tube exchange. Specimens Bladder stone and left ureteral stone for analysis Drains 22 Greek Sultana catheter per SP tract 6 Greek by 24 cm double-J ureteral stent in the left ureter. Strings left on the stent to facilitate removal. Anesthesia Type MAC Complications none Disposition Disposition: Recovery Room Indications This is a 56-year-old female recently hospitalized with altered mental status, found to have urinary tract infection and an obstructing left ureteral stone, in addition to a bladder stone. She underwent left ureteral stent placement and has been subsequently treated with antibiotics. She returns the OR today for laser lithotripsy to remove her bladder stone and ureteral stone. Description of Procedure The patient was identified and informed consent was confirmed. They were marked on the left side, then were taken to the operating room where general anesthesia was initiated. They were placed in the dorsal lithotomy position with all pressure points appropriately padded. They were prepped and draped in the usual sterile fashion and a preoperative timeout was performed. To start the case the suprapubic tube was exchanged using sterile technique in the normal fashion. A 22 Greek catheter was used and 10 attached to gravity drainage with 10 mL in the balloon. We then turned our attention to the bladder stone. A well-lubricated cystoscope was inserted per urethra and used to survey the bladder. The SP tube appeared to be in good position and the distal end of ureteral stent was visualized from the left ureteral orifice. The bladder stone was easily visualized in the lumen of the bladder, and appeared to be about 1.5 cm. The 272 m holmium laser fiber was introduced and used to perform laser lithotripsy to break the stone into smaller pieces. Once the pieces were satisfactorily small, they were evacuated from the bladder through the cystoscope sheath. The bladder stone pieces were sent for analysis labeled as bladder stone. Once the bladder stone was completely removed, a pair of stent graspers was used to withdraw the left ureteral stent at the urethral meatus. The stent was then cannulated using a 0.035 inch sensor wire, which advanced up to the kidney under fluoroscopic guidance. The stent was removed. Alongside the wire, a 5 Greek open-ended catheter was inserted and retrograde pyelogram was performed. The distal ureter appeared normal. In the proximal ureter there was a filling defect, suspicious for the ureteral stone. There was mild hydronephrosis of the left kidney. The semirigid ureteroscope was inserted alongside the wire and advanced into the left ureter. The ureteral stone was visualized in the proximal ureter, and appeared to be about 7 mm in diameter. The 272 m holmium laser fiber was again used to break the stone into smaller pieces. These were then withdrawn using the Nitinol wire basket and sent for analysis labeled as left ureteral stone. Once the ureter was clear of stone, a flexible ureteroscope was inserted and advanced to survey the kidney. There were no additional stones in the kidney. The ureter was surveyed on the way out and there was some edema from where the stone had been and from stone treatment, but no mucosal injury. No more stones were identified. Over the wire, then a 6 Greek x 24 centimeter double-J ureteral stent was advanced. When the wire was removed, the proximal curl was visualized in the kidney with x-ray, and the distal curl visualized in the bladder with the cystoscope. The strings were left attached to the stent to facilitate removal at the bedside. Strings were attached to her thigh using a Tegaderm. At this point the bladder was drained and all instrumentation was removed. The patient was then awakened from anesthesia and was brought to the PACU in stable condition. I attest to the content of the Intraoperative Record and any orders documented therein. Any exceptions are noted below.
--- NOTE | 2021-11-26 16:50 | Anesthesiology Progress Note ---
Date of Service November 26, 2021 Anesthesia Post Procedure Vital Signs Vital Signs: Temp Pulse Pulse Pulse Resp BP Pulse Ox 11/26/21 16:25 80 13 131/82 97 11/26/21 16:15 84 18 134/87 98 11/26/21 16:05 85 18 129/89 99 11/26/21 15:55 87 18 128/78 100 11/26/21 15:47 36.2 C L 87 12 133/77 100 11/26/21 11:47 36.7 C 82 18 130/90 98 11/26/21 07:25 36.5 C 74 16 114/74 98 11/25/21 22:50 36.6 C 89 16 131/83 95 Pain Intensity Back: Pain Intensity: 7 Transfer of Care Handoff Completed per policy Notes Mental Status: alert / awake / arousable Patient Amnestic to Procedure: Yes Nausea / Vomiting: adequately controlled Pain: adequately controlled Airway Patency, RR, SpO2: stable & adequate BP & HR: stable & adequate Hydration State: stable & adequate Anesthetic Complications: no major complications apparent
[2021-11-26] MEDS ORDERED: METOPROLOL TARTRATE 25 MG TAB PO STA (20:37)
[2021-11-26] MEDS: LORazepam 1 MG TAB PO SCH (21:12)
[2021-11-26] MEDS ORDERED: HYOSCYAMINE SULFATE 0.125 MG TAB PO PRN (21:17)
[2021-11-27] MEDS: ENOXAPARIN INJ 40 MG/0.4 ML SYR SQ SCH (05:47)
[2021-11-27] MEDS: FUROSEMIDE 40 MG TAB PO SCH (08:36)
[2021-11-27] MEDS: ADVANCED PROBIOTIC 1250 MG CAPSULE PO SCH (08:37)
[2021-11-27] MEDS: ASCORBIC ACID 500 MG TAB PO SCH (08:37)
[2021-11-27] MEDS: SIMVASTATIN 20 MG TAB PO SCH (08:37)
[2021-11-27] MEDS: CALCIUM CARBONATE 1250MG TAB PO SCH ×2 (08:37→21:49)
[2021-11-27] MEDS: [UNRECOGNIZED DRUG - OTHER] PO SCH (08:38)
[2021-11-27] MEDS: POTASSIUM CHLORIDE CRTAB 20 MEQ TABCR PO SCH (08:41)
[2021-11-27 08:43] LABS: Hematocrit (blood only) 39.1 % (37-47); Hemoglobin 12.7 g/dL (12.0-16.0); Mean Corpuscular Hemoglobin 31.7 pg (25-34); Mean Corpuscular Hgb Conc 32.5 g/dL (32-36); Mean Corpuscular Volume 97.5 fL (80-100); Mean Platelet Volume 11.9 fL (7.4-10.4); Platelet Count 259 K/uL (130-400); RDW Coefficient of Variation 15.7 % (11.5-14.5); RDW Standard Deviation 56.5 fL (36.4-46.3); Red Blood Count 4.01 M/uL (4.2-5.4); White Blood Count 12.13 K/uL (4.8-10.8)
--- NOTE | 2021-11-27 09:02 | Urology Progress Note ---
Date of Service November 27, 2021 Assessment & Plan (1) Bladder stone: (2) Left ureteral stone: (3) S/P ureteral stent placement: Plan: We reviewed the results of yesterday's surgery. Bladder stone was removed and sent for analysis. Left ureteral stone was removed and sent separately as this does not seem to be of different density and may be different materials. Left ureteral stent was left in place out of caution, but since she is feeling well this morning, the stent was removed at the bedside. She tolerated stent removal well. We discussed obtaining a renal ultrasound in 2 to 3 months to assess for any residual hydronephrosis or residual/new stones. I offered to see her in the office or have a telephone visit to discuss the results of this ultrasound, and review the stone and stone prevention measures. Admission and Anticipated Discharge Date Admission Date: November 02, 2021 Subjective Patient is feeling well this morning, she denies any fevers or chills overnight. She reported an episode of tachycardia which resolved with medication. She is not having any significant pain from her new SP tube or from her stent. No nausea or vomiting. Review of Systems Cardiovascular: Additional Comments: no chest pain, tachycardia from overnight had resolved. Genitourinary: no bladder pain Physical Exam Constitutional: Well-appearing, NAD Respiratory: Breathing comfortably on room air Cardiovascular: Regular rate and rhythm Gastrointestinal (Abdomen): Nondistended, Genitourinary: Left ureteral stent removed at the bedside Results & Data ([facility]) Vital Signs (Past 12 Hours) Vital Signs Temp Pulse Resp BP Pulse Ox 11/27/21 07:21 36.7 C 80 16 116/68 98 11/27/21 03:53 36.6 C 77 18 118/70 96 11/26/21 21:52 36.7 C 85 17 118/79 96 Laboratory Results WBC 12.13 this morning PG Care Time/CCT Total # of Minutes Spent Total Time Spent with Patient: Total time spent is greater than 50% in coordination of care (as documented) at patient's floor/unit and/or counseling patient: Coding Level of Care Code 92739 Subseq Hosp Care Lvl 2 Diagnoses Bladder stone N21.0 Left ureteral stone N20.1 S/P ureteral stent placement Z96.0
[2021-11-27 09:37] LABS: BUN Creatinine Ratio 29.9 (10-20); Calcium 9.1 mg/dl (8.5-10.1); Creatinine Clr Calc Pharmacy 87.9 ml/min; Est GFR (African American) 113.9 ml/min; Est GFR (Non-African American) 98.3 ml/min; Potassium 3.8 mmol/L (3.5-5.1)
--- NOTE | 2021-11-27 14:07 | Hospitalist Progress Note ---
Date of Service November 27, 2021 Assessment & Plan (1) S/P ureteral stent placement: (2) Left ureteral stone: (3) Lumbar compression fracture: (4) UTI (urinary tract infection) due to urinary indwelling catheter: Plan: Acute confusion: --> resolved Acute metabolic encephalopathy H/O severe multiple sclerosis with paraparesis and neurogenic bladder and has been wheelchair-bound Confusion likely due to complicated UTI Mental status back to baseline UTI (urinary tract infection) due to urinary indwelling catheter: Complicated urinary tract infection H/O neurogenic bladder with urine retention, left ureteral stone Urine Cx: Pseudomonas, Enterococcus Was on Zosyn>>Cefepime>>Zosyn Dr Romero had discussed with [facility] AMIRA Hayes : Recommends 2 week course of IV Zosyn - course completed Due to hematuria on 11/19, repeat UA and culture were sent Urine culture grew Pseudomonas species Patient afebrile without leukocytosis. Not on antibiotics. Possible colonization Left ureteral stone Obstructive uropathy S/P cystoscopy, left stent placement, suprapubic cystostomy on 11/05/21 11/19/2021 -patient was noted to have dark sonia urine with blood clots, urology reconsulted POD#1 s/p Left ureteral stone was removed and sent, bladder stone removed and sent for analysis. Stent was later removed at bedside Per urology, plan to obtain a renal ultrasound in 2-3 months to assess for any residual hydronephrosis or residual/new stones Lumbar compression fracture (L2) Appreciate orthopedics input Pain controlled Conservative management Needs follow-up with orthopedics upon discharge Multiple sclerosis: Severe multiple sclerosis with paraparesis and neurogenic bladder Wheelchair-bound S/P Intrathecal baclofen pump Her pump medication was changed on 30 of October Appreciate pain management input. Follow up outpatient Elevated LFTs: Likely drug-induced liver injury secondary to [place] Monitor LFTs GI evaluated - Likely plan for outpatient EUS Avoid hepatotoxic agents as able DVT Px: Lovenox SQ Disposition: Pending, per patient's , he is unable to care for the patient at home. Placement pending. Admission and Anticipated Discharge Date Admission Date: November 02, 2021 Supervising Physician Co-Signing Physician Notes Patient seen and examined Denied any new complaints S/p Cystolitholapaxy, Left Ureteroscopy, Retrograde Pyelogram,Laser Destruction or Extraction of Stone, Exchange Left Stent and suprapubic cath exchange yesterday Labs are stable Agree with other plans as detailed by Libra Dutta PA-C Subjective Patient seen and examined in 357-1. She reported an episode of tachycardia which resolved with metoprolol tartrate 25mg PO x 1. She is not significant new urological pain after stone removal. No fever, chills, CP, SOB, nausea or vomiting, diarrhea or constipation. Review of Systems Review of Systems: At least ten systems reviewed and negative except as noted in the HPI. Physical Exam Physical Exam: Gen: WD/WN, NAD, sitting up in bed, A&Ox3 HEENT: Normocephalic, atraumatic, conjunctivae moist, sclerae anicteric, mucous membranes moist Lung: Clear to Auscultation bilaterally, no wheezes/rales/rhonchi Heart: Regular rate, regular rhythm, no murmurs, rubs, or gallops Abdomen: Soft, NT, ND +BS x 4 : Suprapubic quintanilla in place Extremities: paraplegic, no edema Skin: Warm, no rash Results & Data Results & Data ([facility]) Vital Signs (Past 12 Hours) Vital Signs Temp Pulse Resp BP Pulse Ox 11/27/21 07:21 36.7 C 80 16 116/68 98 11/27/21 03:53 36.6 C 77 18 118/70 96 Laboratory Results Short CBC 11/27/21 Range/Units 08:16 WBC 12.13 H (4.8-10.8) K/uL Hgb 12.7 (12.0-16.0) g/dL Hct 39.1 (37-47) % Plt Count 259 (130-400) K/uL [facility] 11/27/21 08:16 Sodium 138 Potassium 3.8 Chloride 104 Carbon Dioxide 26 BUN 20 Creatinine 0.67 Glucose 83 Calcium 9.1 Diagnostic Findings Gallbladder Ultrasound 11/02/21 19:35 US gallbladder LIMITED ABDOMEN CLINICAL HISTORY: Back pain, elevated LFTs. COMPARISON: None. TECHNIQUE: Multiple grayscale and color images of the right upper quadrant of the abdomen. FINDINGS: Pancreas: The pancreas is within normal limits with no focal mass or peripancreatic fluid collection identified. Liver: The liver is heterogeneous in echogenicity There is no evidence for a focal mass. There is no intrahepatic biliary duct dilatation. Gallbladder: The gallbladder is well distended with no evidence of cholelithiasis, wall thickening or pericholecystic edema. There was a negative sonographic Field sign. Common Bile Duct: (CBD): It is normal in size measuring 5 mm. Inferior Vena Cava (IVC): The imaged IVC is patent. Right kidney: There is no evidence for hydronephrosis, calculus or gross renal mass. The kidney is normal in size. IMPRESSION: Heterogeneous echogenicity of the liver characteristic of hepatocellular disease and probable fatty infiltration. ACT 112: Negative or not required by law. Electronically signed by: Grupo Leyva M.D. 11/02/2021 9:04 PM Chest X-Ray 11/02/21 19:38 XR chest 1V portable CLINICAL HISTORY: Fever, eval for PNA. COMPARISON STUDY: No previous studies for comparison. TECHNIQUE: 1 view of the chest FINDINGS: Single frontal view of the chest demonstrates the cardiomediastinal silhouette to be within normal limits. The lungs are clear of alveolar opacities. There is no evidence for pleural effusion. There is no evidence for vascular congestion. There is no acute osseous pathology. IMPRESSION: No acute cardiopulmonary disease. ACT 112: Negative or not required by law. Electronically signed by: Grupo Leyva M.D. 11/02/2021 8:57 PM Abdomen/Pelvis CT 11/03/21 09:39 CT OF THE ABDOMEN AND PELVIS WITH CONTRAST CLINICAL HISTORY: elevated LFTs. COMPARISON STUDY: Right upper quadrant ultrasound November 02, 2021. TECHNIQUE: Following IV administration of 95 mL of Optiray, axial images of the abdomen and pelvis were obtained from the lung bases to the proximal femurs. Images were reviewed in the axial, sagittal, and coronal planes. IV contrast was administered without complication. Automated exposure control was utilized for the study. A dose lowering technique was utilized adhering to the principles of ALARA. CT DOSE: 788.98 mGy.cm FINDINGS: [id number] is partially imaged. Trace left pleural effusion is noted with associated atelectasis. An intrathecal catheter is partially imaged. Catheter tip is not visualized on this exam. Visualized portions of the catheter are intact. No pneumatosis, free air or portal venous gas is present. The liver, spleen, adrenal glands and pancreas are unremarkable. There is no biliary or pancreatic ductal dilatation. There is no peripancreatic or pericholecystic infiltration. Bilateral renal calculi are noted, including an 8 mm calculus within the upper pole of the right kidney. There is mild left hydronephrosis due to a 7 mm proximal left ureteral calculus. In addition, there is a 3 mm calculus within the left renal pelvis. Left nephrogram is mildly delayed. A few hypoenhancing foci within the left kidney are noted. Mild left perinephric stranding is present. There is mild urothelial thickening of the proximal left ureter. Suprapubic catheter is in place. Note is made of a 1.6 cm bladder calculus. Bladder is collapsed. The caliber and wall thickness of small and large bowel are normal. The appendix is normal. There is no evidence for a bowel obstruction. There is trace presacral infiltration. Moderate amount stool within the rectum is noted. There is no abscess. Major vasculature is patent. Muscular atrophy is incidentally noted. IMPRESSION: 1. 7 mm proximal left ureteral calculus results in mild left hydronephrosis. Heterogeneous enhancement of the left kidney and urothelial thickening of the proximal left ureter is likely due to the obstruction however a superimposed infectious process could appear similar. 2. Bilateral nephrolithiasis. 3 mm left renal pelvis calculus. 3. No biliary ductal dilatation. 4. Suprapubic catheter in place. 1.6 cm bladder calculus. ACT 112: Negative or not required by law. Electronically signed by: Sekou Blount M.D. 11/03/2021 11:26 AM Retrograde Pyelogram 11/05/21 09:30 FL retrograde includes kub CLINICAL HISTORY: Left retrograde exam with ureteral stent insertion. COMPARISON STUDY: CT of the abdomen and pelvis November 03, 2021. FLUOROSCOPY TIME: 16 seconds. FLUOROSCOPIC IMAGES: 4 FINDINGS: Fluoroscopy was provided during cystoscopy and left retrograde exam with placement of a left ureteral stent. IMPRESSION: Fluoroscopy provided during left retrograde exam with placement of a left ureteral stent. ACT 112: Negative or not required by law. Electronically signed by: Sekou Blount M.D. 11/05/2021 10:[address] 11/05/21 10:08 CT OF THE LUMBAR SPINE CLINICAL HISTORY: Back pain. COMPARISON STUDY: CT of the abdomen and pelvis November 03, 2021. TECHNIQUE: Helical axial images of the lumbar spine were obtained. Sagittal and coronal reconstructions were viewed. Automated exposure control was utilized for the study. A dose lowering technique was utilized adhering to the principles of ALARA. FINDINGS: For purposes of numbering on this exam, the L5-S1 disc space is assigned to axial image 291 of 399. Intrathecal catheter is partially imaged. Visualized portions of the catheter are intact. Bilateral renal calculi are noted. The largest calculus is an 8 mm calculus within the upper pole of the right kidney. Left hydronephrosis has resolved following stent placement. A 6 mm proximal left ureteral calculus/fragment is present. Gas within the left collecting system is from recent instrumentation. No acute lumbar spine fracture is noted. There is a mild compression fracture of the inferior endplate of L2 with 30% loss of vertebral body height. There is no retropulsion at this level. There are mild compression fractures of the superior endplates of L3 and L4. No retropulsion is noted. No suspicious osseous lesions are noted. The appearance of the lumbar spine fractures is unchanged since abdominal CT of November 03, 2021. There is moderate multilevel facet arthrosis within the lumbar spine. There is mild multilevel degenerative disc disease. IMPRESSION: 1. Mild compression fractures of the inferior endplate of L2 and superior endplates of L3 and L4. The L2 and L3 compression fractures are likely subacute. The L4 fracture is likely chronic. No retropulsion. 2. No acute lumbar spine fracture. 3. Moderate multilevel facet arthrosis and mild multilevel degenerative disc disease within the lumbar spine. 4. Partially visualized intrathecal catheter. Visualized portions intact. 5. Interval left ureteral stent placement with resolution of hydronephrosis. 6 mm proximal left ureteral calculus/fragment. Bilateral nephrolithiasis. ACT 112: Negative or not required by law. Electronically signed by: Sekou Blount M.D. 11/05/2021 1:49 PM Retrograde Pyelogram 11/26/21 11:50 FL retrograde includes kub CLINICAL HISTORY: LEFT RETROGRADE COMPARISON STUDY: 11/05/2021 FLUOROSCOPY TIME: 14 second. FLUOROSCOPIC IMAGES: 2 FINDINGS: On the initial image, a guidewire is seen extending into the left renal pelvis. On the second image obtained, double-J ureteral stent is present. IMPRESSION: Status post placement of double-J ureteral stent on the left. ACT 112: Negative or not required by law. Electronically signed by: Grupo Leyva M.D. 11/26/2021 3:46 PM
[2021-11-27] MEDS: LORazepam 1 MG TAB PO SCH (21:49)
[2021-11-28] MEDS: ENOXAPARIN INJ 40 MG/0.4 ML SYR SQ SCH (05:38)
--- NOTE | 2021-11-28 06:01 | Electrocardiogram Report ---
Test Reason : Blood Pressure : / mmHG Vent. Rate : 101 BPM Atrial Rate : 101 BPM P-R Int : 148 ms QRS Dur : 082 ms QT Int : 358 ms P-R-T Axes : 056 -34 052 degrees QTc Int : 464 ms Sinus tachycardia Left axis deviation Inferior infarct (cited on or before 26-NOV-2021) Anterolateral infarct , age undetermined Abnormal ECG When compared with ECG of 02-NOV-2021 18:52, Premature ventricular complexes are no longer Present Anterolateral infarct is now Present Questionable change in initial forces of Inferior leads Confirmed by Jose Alejandro Mora ([id number]) on 11/28/2021 6:01:02 AM Referred By: Michael Eason Confirmed By:Jose Alejandro Mora
[2021-11-28] MEDS: ADVANCED PROBIOTIC 1250 MG CAPSULE PO SCH (09:27)
[2021-11-28] MEDS: CALCIUM CARBONATE 1250MG TAB PO SCH ×2 (09:27→20:02)
[2021-11-28] MEDS: POTASSIUM CHLORIDE CRTAB 20 MEQ TABCR PO SCH (09:27)
[2021-11-28] MEDS: FUROSEMIDE 40 MG TAB PO SCH (09:27)
[2021-11-28] MEDS: SIMVASTATIN 20 MG TAB PO SCH (09:27)
[2021-11-28] MEDS: ASCORBIC ACID 500 MG TAB PO SCH (09:28)
[2021-11-28] MEDS: [UNRECOGNIZED DRUG - OTHER] PO SCH (09:28)
[2021-11-28] MEDS: POLYETHYLENE (MIRALAX) 17 GM PACK PO PRN (11:41)
[2021-11-28] MEDS: DOCUSATE SODIUM/SENNA 50/8.6MG TAB PO SCH (11:41)
--- NOTE | 2021-11-28 13:11 | Hospitalist Progress Note ---
Date of Service November 28, 2021 Assessment & Plan (1) S/P ureteral stent placement: (2) Left ureteral stone: (3) Lumbar compression fracture: (4) UTI (urinary tract infection) due to urinary indwelling catheter: Plan: Acute confusion: --> resolved Acute metabolic encephalopathy H/O severe multiple sclerosis with paraparesis and neurogenic bladder and has been wheelchair-bound Confusion likely due to complicated UTI Mental status back to baseline UTI (urinary tract infection) due to urinary indwelling catheter: Complicated urinary tract infection H/O neurogenic bladder with urine retention, left ureteral stone Urine Cx: Pseudomonas, Enterococcus Was on Zosyn>>Cefepime>>Zosyn Dr Romero had discussed with [facility] AMIRA Hayes : Recommends 2 week course of IV Zosyn - course completed Due to hematuria on 11/19, repeat UA and culture were sent Urine culture grew Pseudomonas species Patient afebrile without leukocytosis. Not on antibiotics. Possible colonization Left ureteral stone Obstructive uropathy S/P cystoscopy, left stent placement, suprapubic cystostomy on 11/05/21 11/19/2021 -patient was noted to have dark sonia urine with blood clots, urology reconsulted POD#2 s/p Left ureteral stone was removed and sent, bladder stone removed and sent for analysis. Stent was later removed at bedside Per urology, plan to obtain a renal ultrasound in 2-3 months to assess for any residual hydronephrosis or residual/new stones Lumbar compression fracture (L2) Appreciate orthopedics input Pain controlled Conservative management Needs follow-up with orthopedics upon discharge Multiple sclerosis: Severe multiple sclerosis with paraparesis and neurogenic bladder Wheelchair-bound S/P Intrathecal baclofen pump Her pump medication was changed on 30 of October Appreciate pain management input. Follow up outpatient Elevated LFTs: Likely drug-induced liver injury secondary to [place] Monitor LFTs GI evaluated - Likely plan for outpatient EUS Avoid hepatotoxic agents as able DVT Px: Lovenox SQ Disposition: Pending, per patient's , he is unable to care for the patient at home. Placement pending. Admission and Anticipated Discharge Date Admission Date: November 02, 2021 Supervising Physician Co-Signing Physician Notes Patient seen and examined Agree with findings and plans as detailed by Libra Bills PA-C Subjective Patient seen and examined in 357-1. No new events overnight. Feeling constipated and ordered something for bowel regimen. No fever, chills, CP, SOB, nausea, vomiting, abdominal pain, dysuria or diarrhea. Review of Systems Review of Systems: At least ten systems reviewed and negative except as noted in the HPI. Physical Exam Physical Exam: Gen: WD/WN, NAD, sitting up in bed, A&Ox3 HEENT: Normocephalic, atraumatic, conjunctivae moist, sclerae anicteric, mucous membranes moist Lung: Clear to Auscultation bilaterally, no wheezes/rales/rhonchi Heart: Regular rate, regular rhythm, no murmurs, rubs, or gallops Abdomen: Soft, NT, ND +BS x 4 : Suprapubic quintanilla in place Extremities: paraplegic, no edema Skin: Warm, no rash Results & Data Results & Data ([facility]) Vital Signs (Past 12 Hours) Vital Signs Temp Pulse Resp BP Pulse Ox 11/28/21 08:02 36.6 C 69 17 110/72 98
[2021-11-28] MEDS ORDERED: POLYETHYLENE (MIRALAX) 17 GM PACK PO ONE (13:12)
[2021-11-28] MEDS: LORazepam 1 MG TAB PO SCH (20:02)
[2021-11-29] MEDS: ENOXAPARIN INJ 40 MG/0.4 ML SYR SQ SCH (05:25)
[2021-11-29] MEDS: POLYETHYLENE (MIRALAX) 17 GM PACK PO PRN (08:23)
[2021-11-29] MEDS: [UNRECOGNIZED DRUG - OTHER] PO SCH (08:24)
[2021-11-29] MEDS: SIMVASTATIN 20 MG TAB PO SCH (08:26)
[2021-11-29] MEDS: FUROSEMIDE 40 MG TAB PO SCH (08:26)
[2021-11-29] MEDS: POTASSIUM CHLORIDE CRTAB 20 MEQ TABCR PO SCH (08:26)
[2021-11-29] MEDS: ADVANCED PROBIOTIC 1250 MG CAPSULE PO SCH (08:26)
[2021-11-29] MEDS: ASCORBIC ACID 500 MG TAB PO SCH (08:27)
[2021-11-29] MEDS: CALCIUM CARBONATE 1250MG TAB PO SCH ×2 (08:27→20:52)
[2021-11-29] MEDS: DOCUSATE SODIUM/SENNA 50/8.6MG TAB PO SCH (08:27)
[2021-11-29] MEDS: HEPARIN 100 UNIT/ML 5ML FLUSH FLUSH PRN (09:22)
--- NOTE | 2021-11-29 13:46 | Hospitalist Progress Note ---
Date of Service November 29, 2021 Assessment & Plan (1) S/P ureteral stent placement: (2) Left ureteral stone: (3) Lumbar compression fracture: (4) UTI (urinary tract infection) due to urinary indwelling catheter: Plan: Acute confusion: --> resolved Acute metabolic encephalopathy H/O severe multiple sclerosis with paraparesis and neurogenic bladder and has been wheelchair-bound Confusion likely due to complicated UTI Mental status back to baseline UTI (urinary tract infection) due to urinary indwelling catheter: Complicated urinary tract infection H/O neurogenic bladder with urine retention, left ureteral stone Urine Cx: Pseudomonas, Enterococcus Was on Zosyn>>Cefepime>>Zosyn Dr Romero had discussed with [facility] AMIRA Hayes : Recommends 2 week course of IV Zosyn - course completed Due to hematuria on 11/19, repeat UA and culture were sent Urine culture grew Pseudomonas species Patient afebrile without leukocytosis. Not on antibiotics. Possible colonization Left ureteral stone Obstructive uropathy S/P cystoscopy, left stent placement, suprapubic cystostomy on 11/05/21 11/19/2021 -patient was noted to have dark sonia urine with blood clots, urology reconsulted POD#3 s/p Cystolitholapaxy, Left Ureteroscopy, Retrograde Pyelogram,Laser Destruction or Extraction of Stone, Exchange Left Stent. Bladder stone removed and sent for analysis. Per urology, plan to obtain a renal ultrasound in 2-3 months to assess for any residual hydronephrosis or residual/new stones Lumbar compression fracture (L2) Appreciate orthopedics input Pain controlled Conservative management Needs follow-up with orthopedics upon discharge Multiple sclerosis: Severe multiple sclerosis with paraparesis and neurogenic bladder Wheelchair-bound S/P Intrathecal baclofen pump Her pump medication was changed on 30 of October Appreciate pain management input. Follow up outpatient Elevated LFTs: Likely drug-induced liver injury secondary to [place] GI evaluated - Likely plan for outpatient EUS Avoid hepatotoxic agents as able DVT Px: Lovenox SQ Disposition: Pending. Patient's is unable to care for the patient at home at her current functional status. CM working on placement Admission and Anticipated Discharge Date Admission Date: November 02, 2021 Subjective Patient seen and examined Denied any pain or new complaints today Has paraplegia from MS and suprapubic quintanilla Review of Systems Review of Systems: All systems reviewed & are unremarkable except as noted in Subjective Physical Exam Constitutional: + well hydrated; no acute distress Eyes: PERRL, conjunctivae normal, anicteric sclerae ENMT: external ear and nose normal, oropharynx normal Respiratory: normal respiratory effort, lungs clear to auscultation Cardiovascular: Rate/Rhythm: regular rate and regular rhythm S1 S2 Gastrointestinal (Abdomen): normal bowel sounds, soft, nontender, no hepatosplenomegaly Neurologic: PERRL, EOMI, accommodation nl, no face palsy, no dysarthria Psychiatric: A+Ox3, euthymic affect Genitourinary: Suprapubic quintanilla Results & Data Results & Data ([facility]) Vital Signs (Past 12 Hours) Vital Signs Temp Pulse Resp BP Pulse Ox 11/29/21 08:13 36.8 C 83 16 115/75 96
[2021-11-29] MEDS: LORazepam 1 MG TAB PO SCH (20:52)
[2021-11-30] MEDS: ENOXAPARIN INJ 40 MG/0.4 ML SYR SQ SCH (05:42)
[2021-11-30] MEDS: HEPARIN 100 UNIT/ML 5ML FLUSH FLUSH PRN (08:58)
[2021-11-30] MEDS: DOCUSATE SODIUM/SENNA 50/8.6MG TAB PO SCH (09:43)
[2021-11-30] MEDS: FUROSEMIDE 40 MG TAB PO SCH (09:43)
[2021-11-30] MEDS: ADVANCED PROBIOTIC 1250 MG CAPSULE PO SCH (09:44)
[2021-11-30] MEDS: ASCORBIC ACID 500 MG TAB PO SCH (09:44)
[2021-11-30] MEDS: SIMVASTATIN 20 MG TAB PO SCH (09:44)
[2021-11-30] MEDS: CALCIUM CARBONATE 1250MG TAB PO SCH ×2 (09:44→20:56)
[2021-11-30] MEDS: [UNRECOGNIZED DRUG - OTHER] PO SCH (09:44)
[2021-11-30] MEDS: POTASSIUM CHLORIDE CRTAB 20 MEQ TABCR PO SCH (09:48)
--- NOTE | 2021-11-30 11:27 | Hospitalist Progress Note ---
Date of Service November 30, 2021 Assessment & Plan (1) S/P ureteral stent placement: (2) Left ureteral stone: (3) Lumbar compression fracture: (4) UTI (urinary tract infection) due to urinary indwelling catheter: Plan: Acute confusion: --> resolved Acute metabolic encephalopathy H/O severe multiple sclerosis with paraparesis and neurogenic bladder and has been wheelchair-bound Confusion likely due to complicated UTI Mental status back to baseline UTI (urinary tract infection) due to urinary indwelling catheter: Complicated urinary tract infection H/O neurogenic bladder with urine retention, left ureteral stone Urine Cx: Pseudomonas, Enterococcus Was on Zosyn>>Cefepime>>Zosyn Dr Romero had discussed with [facility] AMIRA Hayes : Recommends 2 week course of IV Zosyn - course completed Due to hematuria on 11/19, repeat UA and culture were sent Urine culture grew Pseudomonas species Patient afebrile without leukocytosis. Not on antibiotics. Possible colonization Left ureteral stone Obstructive uropathy S/P cystoscopy, left stent placement, suprapubic cystostomy on 11/05/21 11/19/2021 -patient was noted to have dark sonia urine with blood clots, urology reconsulted POD#4 s/p Cystolitholapaxy, Left Ureteroscopy, Retrograde Pyelogram,Laser Destruction or Extraction of Stone, Exchange Left Stent. Bladder stone removed and sent for analysis. Per urology, plan to obtain a renal ultrasound in 2-3 months to assess for any residual hydronephrosis or residual/new stones Lumbar compression fracture (L2) Appreciate orthopedics input Pain controlled Conservative management Needs follow-up with orthopedics upon discharge Multiple sclerosis: Severe multiple sclerosis with paraparesis and neurogenic bladder Wheelchair-bound S/P Intrathecal baclofen pump Her pump medication was changed on 30 of October Appreciate pain management input. Follow up outpatient Elevated LFTs: Likely drug-induced liver injury secondary to [place] GI evaluated - Likely plan for outpatient EUS Avoid hepatotoxic agents as able DVT Px: Lovenox SQ Disposition: Pending. Patient's is unable to care for the patient at home at her current functional status. CM working on placement Admission and Anticipated Discharge Date Admission Date: November 02, 2021 Subjective Patient seen and examined Reported some constipation later yesterday which resolved with miralax Denied any new complaints today Has paraplegia from MS and suprapubic quintanilla Physical Exam Constitutional: + well hydrated; no acute distress Eyes: PERRL, conjunctivae normal, anicteric sclerae ENMT: external ear and nose normal, oropharynx normal Respiratory: normal respiratory effort, lungs clear to auscultation Cardiovascular: Rate/Rhythm: regular rate and regular rhythm Gastrointestinal (Abdomen): normal bowel sounds, soft, nontender, no hepatosplenomegaly Neurologic: PERRL, EOMI, accommodation nl, no face palsy, no dysarthria Paraplegia Psychiatric: A+Ox3, euthymic affect Results & Data Results & Data ([facility]) Vital Signs (Past 12 Hours) Vital Signs Temp Pulse Resp BP Pulse Ox 11/30/21 07:44 36.8 C 88 16 105/69 98
[2021-11-30] MEDS: LORazepam 1 MG TAB PO SCH (20:56)
[2021-12-01] MEDS: ENOXAPARIN INJ 40 MG/0.4 ML SYR SQ SCH (05:43)
[2021-12-01] MEDS: CALCIUM CARBONATE 1250MG TAB PO SCH ×2 (08:55→20:56)
[2021-12-01] MEDS: FUROSEMIDE 40 MG TAB PO SCH (08:56)
[2021-12-01] MEDS: ASCORBIC ACID 500 MG TAB PO SCH (08:56)
[2021-12-01] MEDS: ADVANCED PROBIOTIC 1250 MG CAPSULE PO SCH (08:56)
[2021-12-01] MEDS: DOCUSATE SODIUM/SENNA 50/8.6MG TAB PO SCH (08:56)
[2021-12-01] MEDS: SIMVASTATIN 20 MG TAB PO SCH (08:56)
[2021-12-01] MEDS: POTASSIUM CHLORIDE CRTAB 20 MEQ TABCR PO SCH (08:59)
[2021-12-01] MEDS: [UNRECOGNIZED DRUG - OTHER] PO SCH (09:00)
[2021-12-01 11:06] LABS: Component 2 DNR; Source BLADDER STONE; Source URETER STONE
--- NOTE | 2021-12-01 12:52 | Hospitalist Progress Note ---
Date of Service December 01, 2021 Assessment & Plan (1) S/P ureteral stent placement: (2) Left ureteral stone: (3) Lumbar compression fracture: (4) UTI (urinary tract infection) due to urinary indwelling catheter: Plan: Acute confusion: --> resolved Acute metabolic encephalopathy H/O severe multiple sclerosis with paraparesis and neurogenic bladder and has been wheelchair-bound Confusion likely due to complicated UTI Mental status back to baseline UTI (urinary tract infection) due to urinary indwelling catheter: Complicated urinary tract infection H/O neurogenic bladder with urine retention, left ureteral stone Urine Cx: Pseudomonas, Enterococcus Was on Zosyn>>Cefepime>>Zosyn Dr Romero had discussed with [facility] ID : Recommends 2 week course of IV Zosyn - course completed Due to hematuria on 11/19, repeat UA and culture were sent Urine culture grew Pseudomonas species Patient afebrile without leukocytosis. Not on antibiotics. Possible colonization Left ureteral stone Obstructive uropathy 11/05/21 -S/P cystoscopy, left stent placement, suprapubic cystostomy on 11/05/21 11/19/2021 -patient was noted to have dark sonia urine with blood clots, urology reconsulted 11/26/21- Cystolitholapaxy, Left Ureteroscopy, Retrograde Pyelogram,Laser Destruction or Extraction of Stone, Exchange Left Stent. Bladder stone removed and sent for analysis. Per urology, plan to obtain a renal ultrasound in 2-3 months to assess for any residual hydronephrosis or residual/new stones Lumbar compression fracture (L2) Appreciate orthopedics input Pain controlled Conservative management Needs follow-up with orthopedics upon discharge Multiple sclerosis: Severe multiple sclerosis with paraparesis and neurogenic bladder Wheelchair-bound S/P Intrathecal baclofen pump Her pump medication was changed on 30 of October Appreciate pain management input. Follow up outpatient Elevated LFTs: Likely drug-induced liver injury secondary to [place] GI evaluated - Likely plan for outpatient EUS Avoid hepatotoxic agents as able DVT Px: Lovenox SQ Disposition: Pending. Patient's is unable to care for the patient at home at her current functional status. CM working on placement Admission and Anticipated Discharge Date Admission Date: November 02, 2021 Subjective Patient seen and examined Denied any new complaints today Has paraplegia from MS and suprapubic quintanilla Physical Exam Constitutional: + well hydrated; no acute distress Eyes: PERRL, conjunctivae normal, anicteric sclerae ENMT: external ear and nose normal, oropharynx normal Respiratory: normal respiratory effort, lungs clear to auscultation Cardiovascular: Rate/Rhythm: regular rate and regular rhythm S1 S2 Gastrointestinal (Abdomen): normal bowel sounds, soft, nontender, no hepatosplenomegaly Neurologic: PERRL, EOMI, accommodation nl, no face palsy, no dysarthria Paraplegic Psychiatric: A+Ox3, euthymic affect Genitourinary: Suprapubic quintanilla in situ Results & Data Results & Data ([facility]) Vital Signs (Past 12 Hours) Vital Signs Temp Pulse Resp BP Pulse Ox 12/01/21 07:57 36.8 C 95 H 16 110/67 95
[2021-12-01] MEDS: LORazepam 1 MG TAB PO SCH (20:56)
[2021-12-02] MEDS: ENOXAPARIN INJ 40 MG/0.4 ML SYR SQ SCH (05:16)
[2021-12-02] MEDS: ASCORBIC ACID 500 MG TAB PO SCH (09:21)
[2021-12-02] MEDS: POTASSIUM CHLORIDE CRTAB 20 MEQ TABCR PO SCH (09:21)
[2021-12-02] MEDS: ADVANCED PROBIOTIC 1250 MG CAPSULE PO SCH (09:21)
[2021-12-02] MEDS: CALCIUM CARBONATE 1250MG TAB PO SCH ×2 (09:21→20:23)
[2021-12-02] MEDS: SIMVASTATIN 20 MG TAB PO SCH (09:22)
[2021-12-02] MEDS: DOCUSATE SODIUM/SENNA 50/8.6MG TAB PO SCH (09:22)
[2021-12-02] MEDS: FUROSEMIDE 40 MG TAB PO SCH (09:22)
[2021-12-02] MEDS: [UNRECOGNIZED DRUG - OTHER] PO SCH (09:23)
[2021-12-02] MEDS: IBUPROFEN 200 MG TAB PO PRN (11:16)
--- NOTE | 2021-12-02 12:23 | Hospitalist Progress Note ---
Date of Service December 02, 2021 Assessment & Plan (1) S/P ureteral stent placement: (2) Left ureteral stone: (3) Lumbar compression fracture: (4) UTI (urinary tract infection) due to urinary indwelling catheter: Plan: Acute confusion: --> resolved Acute metabolic encephalopathy H/O severe multiple sclerosis with paraparesis and neurogenic bladder and has been wheelchair-bound Confusion likely due to complicated UTI Mental status back to baseline UTI (urinary tract infection) due to urinary indwelling catheter: Complicated urinary tract infection H/O neurogenic bladder with urine retention, left ureteral stone Urine Cx: Pseudomonas, Enterococcus Was on Zosyn>>Cefepime>>Zosyn Dr Romero had discussed with [facility] ID : Recommends 2 week course of IV Zosyn - course completed Due to hematuria on 11/19, repeat UA and culture were sent Urine culture grew Pseudomonas species Patient afebrile without leukocytosis. Not on antibiotics. Possible colonization Left ureteral stone Obstructive uropathy 11/05/21 -S/P cystoscopy, left stent placement, suprapubic cystostomy on 11/05/21 11/19/2021 -patient was noted to have dark sonia urine with blood clots, urology reconsulted 11/26/21- Cystolitholapaxy, Left Ureteroscopy, Retrograde Pyelogram,Laser Destruction or Extraction of Stone, Exchange Left Stent. Bladder stone removed and sent for analysis. Per urology, plan to obtain a renal ultrasound in 2-3 months to assess for any residual hydronephrosis or residual/new stones Lumbar compression fracture (L2) Appreciate orthopedics input Pain controlled Conservative management Needs follow-up with orthopedics upon discharge Multiple sclerosis: Severe multiple sclerosis with paraparesis and neurogenic bladder Wheelchair-bound S/P Intrathecal baclofen pump Her pump medication was changed on 30 of October Appreciate pain management input. Follow up outpatient Elevated LFTs: Likely drug-induced liver injury secondary to [place] [facility] evaluated - Likely plan for outpatient EUS Avoid hepatotoxic agents as able DVT Px: Lovenox SQ Disposition: Pending. Patient's is unable to care for the patient at home at her current functional status. CM working on placement Admission and Anticipated Discharge Date Admission Date: November 02, 2021 Subjective Patient seen and examined Denied any new complaints today Has paraplegia from MS and suprapubic quintanilla CM working on placement Physical Exam Constitutional: + well hydrated; no acute distress Eyes: PERRL, conjunctivae normal, anicteric sclerae ENMT: external ear and nose normal, oropharynx normal Respiratory: normal respiratory effort, lungs clear to auscultation Cardiovascular: Rate/Rhythm: regular rate and regular rhythm S1 S2 Gastrointestinal (Abdomen): normal bowel sounds, soft, nontender, no hepatosplenomegaly Neurologic: PERRL, EOMI, accommodation nl, no face palsy, no dysarthria Paraplegic Psychiatric: A+Ox3, euthymic affect Genitourinary: Suprapubic quintanilla Results & Data Results & Data ([facility]) Vital Signs (Past 12 Hours) Vital Signs Temp Pulse Resp BP Pulse Ox 12/02/21 07:01 36.8 C 88 16 106/69 96
[2021-12-02] MEDS: LORazepam 1 MG TAB PO SCH (20:23)
[2021-12-03] MEDS: HEPARIN 100 UNIT/ML 5ML FLUSH FLUSH PRN (08:07)
[2021-12-03] MEDS: DOCUSATE SODIUM/SENNA 50/8.6MG TAB PO SCH (08:59)
[2021-12-03] MEDS: ADVANCED PROBIOTIC 1250 MG CAPSULE PO SCH (08:59)
[2021-12-03] MEDS: FUROSEMIDE 40 MG TAB PO SCH (08:59)
[2021-12-03] MEDS: [UNRECOGNIZED DRUG - OTHER] PO SCH (09:00)
[2021-12-03] MEDS: POTASSIUM CHLORIDE CRTAB 20 MEQ TABCR PO SCH (09:00)
--- NOTE | 2021-12-03 18:28 | Hospitalist Progress Note ---
Date of Service December 03, 2021 Assessment & Plan (1) S/P ureteral stent placement: (2) Left ureteral stone: (3) Lumbar compression fracture: (4) UTI (urinary tract infection) due to urinary indwelling catheter: Plan: Acute metabolic encephalopathy H/O severe multiple sclerosis with paraparesis and neurogenic bladder and has been wheelchair-bound Confusion likely due to complicated UTI Mental status back to baseline Resolved UTI (urinary tract infection) due to urinary indwelling catheter: Complicated urinary tract infection H/O neurogenic bladder with urine retention, left ureteral stone Urine Cx: Pseudomonas, Enterococcus Was on Zosyn>>Cefepime>>[facility]osyn [facility] ID : Recommends 2 week course of IV Zosyn completed IV antibiotic course Left ureteral stone Obstructive uropathy 11/05/21 -S/P cystoscopy, left stent placement, suprapubic cystostomy on 11/05/21 11/19/2021 -patient was noted to have dark sonia urine with blood clots, urology reconsulted 11/26/21- Cystolitholapaxy, Left Ureteroscopy, Retrograde Pyelogram,Laser Destruction or Extraction of Stone, Exchange Left Stent. Bladder stone removed and sent for analysis. Appreciate urology input Needs Renal ultrasound in 2-3 months to assess for any residual hydronephrosis o r residual/new stones Lumbar compression fracture (L2) Appreciate orthopedics input Pain controlled Conservative management Needs follow-up with orthopedics upon discharge Multiple sclerosis: Severe multiple sclerosis with paraparesis and neurogenic bladder Wheelchair-bound S/P Intrathecal baclofen pump Her pump medication was changed on 30 of October Appreciate pain management input. Follow up outpatient Elevated LFTs: Likely drug-induced liver injury secondary to [place] [facility] evaluated - Likely plan for outpatient EUS Avoid hepatotoxic agents as able DVT Px: Lovenox SQ Disposition: Rehab when arranged Admission and Anticipated Discharge Date Admission Date: November 02, 2021 Subjective Patient is seen and examined at bedside Offers no complaints today Waiting for rehab placement Denies any chest pain, dyspnea, dizziness, nausea, abdominal pain Review of Systems Review of Systems: All systems reviewed & are unremarkable except as noted in Subjective Physical Exam Physical Exam: Physical Exam: Vitals signs as noted above General Appearance:Moderately built and nourished, no apparent distress Head: normocephalic, Atraumatic Eyes: normal inspection, EOMI Neck: supple, Trachea midline Respiratory/Chest: Normal breath sounds, CTA Cardiovascular: S1, S2, No murmur Abdomen/GI:Soft, Non tender, Bowel sounds present Extremities/Musculoskeletal:normal inspection, ankle deformity, Mild LE edema Neurologic/Psych:AAOX3, + Paraplegia B/L LE, Left UE 4/5 Skin: normal color, warm Results & Data Results & Data ([place]) Vital Signs (Past 12 Hours) Vital Signs Temp Pulse Resp BP Pulse Ox 12/03/21 15:13 36.8 C 106 H 18 109/73 96 12/03/21 07:11 36.6 C 80 16 106/70 99
[2021-12-03] MEDS: LORazepam 1 MG TAB PO SCH (22:50)
[2021-12-04] MEDS: DOCUSATE SODIUM/SENNA 50/8.6MG TAB PO SCH (07:59)
[2021-12-04] MEDS: FUROSEMIDE 40 MG TAB PO SCH (07:59)
[2021-12-04] MEDS: ADVANCED PROBIOTIC 1250 MG CAPSULE PO SCH (08:00)
[2021-12-04] MEDS: POTASSIUM CHLORIDE CRTAB 20 MEQ TABCR PO SCH (08:00)
[2021-12-04 08:14] LABS: BUN Creatinine Ratio 27.8 (10-20); Calcium 9.1 mg/dl (8.5-10.1); Creatinine Clr Calc Pharmacy 74.6 ml/min; Est GFR (Non-African American) 83.7 ml/min; Potassium 3.4 mmol/L (3.5-5.1)
--- NOTE | 2021-12-04 17:56 | Hospitalist Progress Note ---
Date of Service December 04, 2021 Assessment & Plan (1) S/P ureteral stent placement: (2) Left ureteral stone: (3) Lumbar compression fracture: (4) UTI (urinary tract infection) due to urinary indwelling catheter: Plan: Acute metabolic encephalopathy H/O severe multiple sclerosis with paraparesis and neurogenic bladder and has been wheelchair-bound Confusion likely due to complicated UTI Mental status back to baseline Resolved UTI (urinary tract infection) due to urinary indwelling catheter: Complicated urinary tract infection H/O neurogenic bladder with urine retention, left ureteral stone Urine Cx: Pseudomonas, Enterococcus Was on Zosyn>>Cefepime>>Zosyn [facility] ID : Recommends 2 week course of IV Zosyn completed IV antibiotic course Left ureteral stone Obstructive uropathy 11/05/21 -S/P cystoscopy, left stent placement, suprapubic cystostomy on 11/05/21 11/19/2021 -patient was noted to have dark sonia urine with blood clots, urology reconsulted 11/26/21- Cystolitholapaxy, Left Ureteroscopy, Retrograde Pyelogram,Laser Destruction or Extraction of Stone, Exchange Left Stent. Bladder stone removed and sent for analysis. Appreciate urology input Needs Renal ultrasound in 2-3 months to assess for any residual hydronephrosis o r residual/new stones Lumbar compression fracture (L2) Appreciate orthopedics input Pain controlled Conservative management Needs follow-up with orthopedics upon discharge COVID-19 exposure Screen for Covid negative Saturating well on room air Currently asymptomatic Will need repeat Covid screen on December 08 sooner if patient is getting discharged Multiple sclerosis: Severe multiple sclerosis with paraparesis and neurogenic bladder Wheelchair-bound S/P Intrathecal baclofen pump Her pump medication was changed on 30 of October Appreciate pain management input. Follow up outpatient Elevated LFTs: Likely drug-induced liver injury secondary to [place] GI evaluated - Likely plan for outpatient EUS Avoid hepatotoxic agents as able DVT Px: Lovenox SQ Disposition: Rehab when arranged Admission and Anticipated Discharge Date Admission Date: November 02, 2021 Subjective Patient is seen and examined at bedside States feeling tired today No other complaints Denies any chest pain, dyspnea, dizziness, nausea, abdominal pain Review of Systems Review of Systems: All systems reviewed & are unremarkable except as noted in Subjective Physical Exam Physical Exam: Physical Exam: Vitals signs as noted above General Appearance:Moderately built and nourished, no apparent distress Head: normocephalic, Atraumatic Eyes: normal inspection, EOMI Neck: supple, Trachea midline Respiratory/Chest: Normal breath sounds, CTA Cardiovascular: S1, S2, No murmur Abdomen/GI:Soft, Non tender, Bowel sounds present Extremities/Musculoskeletal:normal inspection, ankle deformity, Mild LE edema Neurologic/Psych:AAOX3, + Paraplegia B/L LE, Left UE 4/5 Skin: normal color, warm Results & Data Results & Data ([facility]) Vital Signs (Past 12 Hours) Vital Signs Temp Pulse Resp BP BP Pulse Ox 12/04/21 14:41 37.3 C 99 H 16 113/73 96 12/04/21 07:57 36.8 C 79 18 102/68 96 Laboratory Results [facility] 12/04/21 07:26 Sodium 138 Potassium 3.4 L Chloride 102 Carbon Dioxide 28 BUN 22 Creatinine 0.79 Glucose 96 Calcium 9.1
--- NOTE | 2021-12-04 17:57 | Communication Note ---
Date of Service: December 04, 2021 Tried to reach patient's over the phone but no answer.
[2021-12-04] MEDS: LORazepam 1 MG TAB PO SCH (20:20)
[2021-12-04] MEDS: IBUPROFEN 200 MG TAB PO PRN (20:50)
[2021-12-05] MEDS: ADVANCED PROBIOTIC 1250 MG CAPSULE PO SCH (09:26)
[2021-12-05] MEDS: POTASSIUM CHLORIDE CRTAB 20 MEQ TABCR PO SCH (09:26)
[2021-12-05] MEDS: FUROSEMIDE 40 MG TAB PO SCH (09:26)
[2021-12-05] MEDS: DOCUSATE SODIUM/SENNA 50/8.6MG TAB PO SCH (09:26)
[2021-12-05] MEDS: traMADol HCL 50 MG TABLET PO PRN (10:47)
--- NOTE | 2021-12-05 17:37 | Hospitalist Progress Note ---
Date of Service December 05, 2021 Assessment & Plan (1) S/P ureteral stent placement: (2) Left ureteral stone: (3) Lumbar compression fracture: (4) UTI (urinary tract infection) due to urinary indwelling catheter: Plan: Acute metabolic encephalopathy H/O severe multiple sclerosis with paraparesis and neurogenic bladder and has been wheelchair-bound Confusion likely due to complicated UTI Mental status back to baseline Resolved Waiting for rehab placement UTI (urinary tract infection) due to urinary indwelling catheter: Complicated urinary tract infection H/O neurogenic bladder with urine retention, left ureteral stone Urine Cx: Pseudomonas, Enterococcus Was on Zosyn>>Cefepime>>Zosyn [facility] ID : Recommends 2 week course of IV Zosyn completed IV antibiotic course Left ureteral stone Obstructive uropathy 11/05/21 -S/P cystoscopy, left stent placement, suprapubic cystostomy on 11/05/21 11/19/2021 -patient was noted to have dark sonia urine with blood clots, urology reconsulted 11/26/21- Cystolitholapaxy, Left Ureteroscopy, Retrograde Pyelogram,Laser Destruction or Extraction of Stone, Exchange Left Stent. Bladder stone removed and sent for analysis. Appreciate urology input Needs Renal ultrasound in 2-3 months to assess for any residual hydronephrosis or residual/new stones Lumbar compression fracture (L2) Appreciate orthopedics input Pain controlled Conservative management Needs follow-up with orthopedics upon discharge Continue PT OT COVID-19 exposure Screen for Covid negative Saturating well on room air Remains asymptomatic Will need repeat Covid screen on December 08 sooner if patient is getting discharged Multiple sclerosis: Severe multiple sclerosis with paraparesis and neurogenic bladder Wheelchair-bound S/P Intrathecal baclofen pump Her pump medication was changed on 30 of October Appreciate pain management input. Follow up outpatient Elevated LFTs: Likely drug-induced liver injury secondary to [place] GI evaluated - Likely plan for outpatient EUS Avoid hepatotoxic agents as able DVT Px: Lovenox SQ Disposition: Rehab when arranged Admission and Anticipated Discharge Date Admission Date: November 02, 2021 Subjective Patient is seen and examined at bedside States having back pain after having physical therapy earlier today Updated patient's over the phone No other complaints Waiting for rehab placement Denies any chest pain, dyspnea, dizziness, nausea, abdominal pain Review of Systems Review of Systems: All systems reviewed & are unremarkable except as noted in Subjective Physical Exam Physical Exam: Physical Exam: Vitals signs as noted above General Appearance:Moderately built and nourished, no apparent distress Head: normocephalic, Atraumatic Eyes: normal inspection, EOMI Neck: supple, Trachea midline Respiratory/Chest: Normal breath sounds, CTA Cardiovascular: S1, S2, No murmur Abdomen/GI:Soft, Non tender, Bowel sounds present Extremities/Musculoskeletal:normal inspection, ankle deformity, Mild LE edema Neurologic/Psych:AAOX3, + Paraplegia B/L LE, Left UE 4/5 Skin: normal color, warm Results & Data Results & Data ([facility]) Vital Signs (Past 12 Hours) Vital Signs Temp Pulse Resp BP BP Pulse Ox 12/05/21 15:29 37.0 C 92 H 18 113/75 98 12/05/21 07:31 37.1 C 67 18 124/77 96 12/05/21 07:27 36.8 C 78 18 113/74 96
[2021-12-05] MEDS: LORazepam 1 MG TAB PO SCH (21:44)
[2021-12-06 06:35] LABS: BUN Creatinine Ratio 25.8 (10-20); Creatinine Clr Calc Pharmacy 89.3 ml/min; Est GFR (African American) 114.5 ml/min; Est GFR (Non-African American) 98.8 ml/min
[2021-12-06] MEDS: POTASSIUM CHLORIDE CRTAB 20 MEQ TABCR PO SCH ×3 (08:16→20:42)
[2021-12-06] MEDS: DOCUSATE SODIUM/SENNA 50/8.6MG TAB PO SCH (08:16)
[2021-12-06] MEDS: FUROSEMIDE 40 MG TAB PO SCH (08:16)
[2021-12-06] MEDS: ADVANCED PROBIOTIC 1250 MG CAPSULE PO SCH (08:17)
[2021-12-06] MEDS: IBUPROFEN 200 MG TAB PO PRN ×2 (11:45→20:47)
--- NOTE | 2021-12-06 16:34 | Hospitalist Progress Note ---
Date of Service December 06, 2021 Assessment & Plan (1) S/P ureteral stent placement: (2) Left ureteral stone: (3) Lumbar compression fracture: (4) UTI (urinary tract infection) due to urinary indwelling catheter: Plan: Acute metabolic encephalopathy H/O severe multiple sclerosis with paraparesis and neurogenic bladder and has been wheelchair-bound Confusion likely due to complicated UTI Mental status back to baseline Resolved Plan to discharge to rehab facility as able UTI (urinary tract infection) due to urinary indwelling catheter: Complicated urinary tract infection H/O neurogenic bladder with urine retention, left ureteral stone Urine Cx: Pseudomonas, Enterococcus Was on Zosyn>>Cefepime>>Zosyn [facility] ID : Recommends 2 week course of IV Zosyn completed IV antibiotic course Left ureteral stone Obstructive uropathy 11/05/21 -S/P cystoscopy, left stent placement, suprapubic cystostomy on 11/05/21 11/19/2021 -patient was noted to have dark sonia urine with blood clots, urology reconsulted 11/26/21- Cystolitholapaxy, Left Ureteroscopy, Retrograde Pyelogram,Laser Destruction or Extraction of Stone, Exchange Left Stent. Bladder stone removed and sent for analysis. Appreciate urology input Needs Renal ultrasound in 2-3 months to assess for any residual hydronephrosis or residual/new stones Lumbar compression fracture (L2) Appreciate orthopedics input Pain controlled Conservative management Needs follow-up with orthopedics upon discharge Continue PT OT COVID-19 exposure Screen for Covid negative Saturating well on room air Remains asymptomatic Will need repeat Covid screen on December 08 sooner if patient is getting discharged Multiple sclerosis: Severe multiple sclerosis with paraparesis and neurogenic bladder Wheelchair-bound S/P Intrathecal baclofen pump Her pump medication was changed on 30 of October Appreciate pain management input. Follow up outpatient Elevated LFTs: Likely drug-induced liver injury secondary to [place] GI evaluated - Likely plan for outpatient EUS Avoid hepatotoxic agents as able DVT Px: Lovenox SQ Disposition: Rehab when arranged Admission and Anticipated Discharge Date Admission Date: November 02, 2021 Subjective Patient is seen and examined at bedside Reports headache and back discomfort No other complaints Waiting for rehab placement Denies any chest pain, dyspnea, dizziness, nausea, abdominal pain Review of Systems Review of Systems: All systems reviewed & are unremarkable except as noted in Subjective Physical Exam Physical Exam: Physical Exam: Vitals signs as noted above General Appearance:Moderately built and nourished, no apparent distress Head: normocephalic, Atraumatic Eyes: normal inspection, EOMI Neck: supple, Trachea midline Respiratory/Chest: Normal breath sounds, CTA Cardiovascular: S1, S2, No murmur Abdomen/GI:Soft, Non tender, Bowel sounds present Extremities/Musculoskeletal:normal inspection, ankle deformity, Mild LE edema Neurologic/Psych:AAOX3, + Paraplegia B/L LE, Left UE 4/5 Skin: normal color, warm Results & Data Results & Data ([facility]) Vital Signs (Past 12 Hours) Vital Signs Temp Pulse Resp BP Pulse Ox 12/06/21 07:44 36.9 C 86 18 122/84 98 Laboratory Results [facility] 12/06/21 05:48 Sodium 137 Potassium 3.0 L Chloride 100 Carbon Dioxide 30 BUN 17 Creatinine 0.66 Glucose 97 Calcium 9.0
[2021-12-06] MEDS: POLYETHYLENE (MIRALAX) 17 GM PACK PO PRN (19:39)
[2021-12-06] MEDS: LORazepam 1 MG TAB PO SCH (20:43)
[2021-12-07] MEDS: traMADol HCL 50 MG TABLET PO PRN (04:05)
[2021-12-07 07:02] LABS: BUN Creatinine Ratio 25.3 (10-20); Est GFR (African American) 91.4 ml/min; Est GFR (Non-African American) 78.8 ml/min; Magnesium 2.2 mg/dl (1.7-2.4); Potassium 3.9 mmol/L (3.5-5.1)
[2021-12-07] MEDS: DOCUSATE SODIUM/SENNA 50/8.6MG TAB PO SCH (08:53)
[2021-12-07] MEDS: FUROSEMIDE 40 MG TAB PO SCH (08:53)
[2021-12-07] MEDS: ADVANCED PROBIOTIC 1250 MG CAPSULE PO SCH (08:53)
[2021-12-07] MEDS: POTASSIUM CHLORIDE CRTAB 20 MEQ TABCR PO SCH ×2 (08:54→20:24)
[2021-12-07] MEDS: POLYETHYLENE (MIRALAX) 17 GM PACK PO PRN (09:03)
[2021-12-07] MEDS ORDERED: MAGNESIUM HYDROXIDE SUSP 30 ML UDC PO ONE (12:13)
--- NOTE | 2021-12-07 17:25 | Hospitalist Progress Note ---
Date of Service December 07, 2021 Assessment & Plan (1) S/P ureteral stent placement: (2) Left ureteral stone: (3) Lumbar compression fracture: (4) UTI (urinary tract infection) due to urinary indwelling catheter: Plan: Acute metabolic encephalopathy H/O severe multiple sclerosis with paraparesis and neurogenic bladder and has been wheelchair-bound Confusion likely due to complicated UTI Mental status back to baseline Resolved Plan to discharge to rehab facility as able UTI (urinary tract infection) due to urinary indwelling catheter: Complicated urinary tract infection H/O neurogenic bladder with urine retention, left ureteral stone Urine Cx: Pseudomonas, Enterococcus Was on Zosyn>>Cefepime>>Zosyn [facility] ID : Recommends 2 week course of IV Zosyn completed IV antibiotic course Left ureteral stone Obstructive uropathy 11/05/21 -S/P cystoscopy, left stent placement, suprapubic cystostomy on 11/05/21 11/19/2021 -patient was noted to have dark sonia urine with blood clots, urology reconsulted 11/26/21- Cystolitholapaxy, Left Ureteroscopy, Retrograde Pyelogram,Laser Destruction or Extraction of Stone, Exchange Left Stent. Bladder stone removed and sent for analysis. Appreciate urology input Needs Renal ultrasound in 2-3 months to assess for any residual hydronephrosis or residual/new stones Lumbar compression fracture (L2) Appreciate orthopedics input Pain controlled Conservative management Needs follow-up with orthopedics upon discharge Continue PT OT COVID-19 exposure Screen for Covid negative Saturating well on room air Remains asymptomatic Will repeat Covid screen tomorrow Constipation Continue bowel regimen Multiple sclerosis: Severe multiple sclerosis with paraparesis and neurogenic bladder Wheelchair-bound S/P Intrathecal baclofen pump Her pump medication was changed on 30 of October Appreciate pain management input. Follow up outpatient Elevated LFTs: Likely drug-induced liver injury secondary to [place] GI evaluated - Likely plan for outpatient EUS Avoid hepatotoxic agents as able DVT Px: Lovenox SQ Disposition: Rehab when arranged Admission and Anticipated Discharge Date Admission Date: November 02, 2021 Subjective Patient is seen and examined at bedside Headache resolved Back pain improved Reports constipation Offers no other complaints Denies any chest pain, dyspnea, dizziness, nausea, abdominal pain Waiting for rehab placement Review of Systems Review of Systems: All systems reviewed & are unremarkable except as noted in Subjective Physical Exam Physical Exam: Physical Exam: Vitals signs as noted above General Appearance:Moderately built and nourished, no apparent distress Head: normocephalic, Atraumatic Eyes: normal inspection, EOMI Neck: supple, Trachea midline Respiratory/Chest: Normal breath sounds, CTA Cardiovascular: S1, S2, No murmur Abdomen/GI:Soft, Non tender, Bowel sounds present Extremities/Musculoskeletal:normal inspection, ankle deformity, Mild LE edema Neurologic/Psych:AAOX3, + Paraplegia B/L LE, Left UE 4/5 Skin: normal color, warm Results & Data Results & Data ([facility]) Vital Signs (Past 12 Hours) Vital Signs Temp Pulse Resp BP Pulse Ox 12/07/21 16:13 37.0 C 90 18 127/84 98 12/07/21 07:33 36.6 C 95 H 18 109/67 97 Laboratory Results [facility] 12/07/21 06:06 Sodium 135 L Potassium 3.9 D Chloride 100 Carbon Dioxide 29 BUN 21 Creatinine 0.83 Glucose 95 Calcium 9.0
[2021-12-07] MEDS: LORazepam 1 MG TAB PO SCH (20:24)
[2021-12-08] MEDS: POLYETHYLENE (MIRALAX) 17 GM PACK PO PRN (06:27)
[2021-12-08] MEDS: FUROSEMIDE 40 MG TAB PO SCH (09:18)
[2021-12-08] MEDS: DOCUSATE SODIUM/SENNA 50/8.6MG TAB PO SCH (09:18)
[2021-12-08] MEDS: POTASSIUM CHLORIDE CRTAB 20 MEQ TABCR PO SCH ×2 (09:19→20:08)
[2021-12-08] MEDS: ADVANCED PROBIOTIC 1250 MG CAPSULE PO SCH (09:19)
--- NOTE | 2021-12-08 17:23 | Hospitalist Progress Note ---
Date of Service December 08, 2021 Assessment & Plan (1) S/P ureteral stent placement: (2) Left ureteral stone: (3) Lumbar compression fracture: (4) UTI (urinary tract infection) due to urinary indwelling catheter: Plan: Acute metabolic encephalopathy Resolved Confusion likely due to complicated UTI Plan to discharge to rehab facility, placement pending UTI (urinary tract infection) due to urinary indwelling catheter: Complicated urinary tract infection H/O neurogenic bladder with urine retention, left ureteral stone Urine Cx: Pseudomonas, Enterococcus Was on Zosyn>>Cefepime>>Zosyn [facility] ID : Recommends 2 week course of IV Zosyn completed IV antibiotic course Left ureteral stone Obstructive uropathy 11/05/21 -S/P cystoscopy, left stent placement, suprapubic cystostomy 11/19/2021 -patient was noted to have dark sonia urine with blood clots, urology reconsulted 11/26/21- Cystolitholapaxy, Left Ureteroscopy, Retrograde Pyelogram,Laser Destruction or Extraction of Stone, Exchange Left Stent. Bladder stone removed and sent for analysis. Needs Renal ultrasound in 2-3 months to assess for any residual hydronephrosis or residual/new stones Lumbar compression fracture (L2) Reports increased pain while working with therapy a few days ago. No pain at rest. If pain persists, consider repeat imaging. Appreciate orthopedics input Conservative management Needs follow-up with orthopedics upon discharge Continue PT OT COVID-19 exposure Screen for Covid negative Remains asymptomatic Repeat COVID test today negative Constipation Continue bowel regimen Multiple sclerosis Severe multiple sclerosis with paraparesis and neurogenic bladder Wheelchair-bound S/P Intrathecal baclofen pump Her pump medication was changed on 30 of October Appreciate pain management input. Follow up outpatient Elevated LFTs Likely drug-induced liver injury secondary to [place] GI evaluated - Likely plan for outpatient EUS Avoid hepatotoxic agents as able DVT Px Lovenox SQ Disposition - stable for discharge, placement pending Admission and Anticipated Discharge Date Admission Date: November 02, 2021 Supervising Physician Co-Signing Physician Notes Patient is seen and examined at bedside. Constipation resolved. States having urinary catheter leak. Offers no other complaints. On exam patient is moderately built and nourished, no apparent distress, normocephalic atraumatic, EOMI, lungs are clear to auscultation, normal breath sounds, S1-S2, no murmur, abdomen soft, nontender, normal bowel sounds,+ Paraplegia B/L LE, Left UE 4/5, + ankle deformity. Patient is treated for complicated UTI, obstructive uropathy secondary to left ureteral stone. Currently waiting for placement. Plan to change urinary catheter today. Repeat Covid screen negative. I personally reviewed the record. Patient is interviewed and examined at bedside. Patient's care is coordinated with Christy Nelson [employer]NAGER [employer]. Please refer to the documentation above for details of patient's presentation and for discussion of other issues. Subjective Patient seen and examined. Follow-up for UTI, left ureteral stone, obstructive uropathy. Placement pending. Patient reports increased back pain while working with therapy a few days ago. No pain while resting in bed. Otherwise, doing well. Denies chest pain and shortness of breath. No abdominal pain or nausea. Review of Systems Review of Systems: ROS per HPI, all other systems reviewed and negative Physical Exam Constitutional: WD/WN, vitals as above no acute distress Respiratory: normal respiratory effort, lungs clear to auscultation Cardiovascular: Rate/Rhythm: regular rate and regular rhythm Vessels: normal peripheral pulses Extremities: no edema Gastrointestinal (Abdomen): Percussion/Palpation: abdomen soft; abdomen nontender Musculoskeletal: Chronic lower extremity weakness Skin: no rashes, warm and dry Neurologic: No acute focal deficit noted Psychiatric: A+Ox3, euthymic affect Results & Data Results & Data ([facility]) Vital Signs (Past 12 Hours) Vital Signs Temp Pulse Resp BP Pulse Ox 12/08/21 15:48 36.4 C L 102 H 18 113/73 97 12/08/21 07:59 36.8 C 87 18 115/81 100
[2021-12-08] MEDS: LORazepam 1 MG TAB PO SCH (20:08)
[2021-12-09] MEDS: DOCUSATE SODIUM/SENNA 50/8.6MG TAB PO SCH (09:12)
[2021-12-09] MEDS: ADVANCED PROBIOTIC 1250 MG CAPSULE PO SCH (09:12)
[2021-12-09] MEDS: POTASSIUM CHLORIDE CRTAB 20 MEQ TABCR PO SCH (09:12)
[2021-12-09] MEDS: FUROSEMIDE 40 MG TAB PO SCH (09:12)
[2021-12-09] MEDS ORDERED: MoRPHine SULFATE 2 MG/ML CARP IV ONE (11:19)
[2021-12-09] MEDS: MoRPHine SULFATE 2 MG/ML CARP IV PRN ×2 (14:08→20:51)
--- NOTE | 2021-12-09 14:48 | CT Scan Report ---
CT lumbar spine wo con CLINICAL HISTORY: back pain, hx L2 compression fracture COMPARISON STUDY: 11/05/2021 CT DOSE: 556.79 mGycm TECHNIQUE: Standard CT of the Lumbar Spine was performed without IV contrast. A dose lowering techni que was utilized adhering to the principles of ALARA. FINDINGS: Bones: The bones are osteopenic. Old compression fractures are again seen involving the inferior endp late of L2 and the superior endplate of L3. There is no evidence for an acute fracture or malalignmen t. The heights of the remaining lumbar vertebral bodies are maintained. The vertebral bodies are in a natomic alignment. Disc spaces: There is mild disc space narrowing at L1-2, L2-3 and L5-S1. Facet joints: Mild hypertrophic facet joint disease is present involving the lower 2 disc space level s. Mild degenerative changes are seen involving the SI joints bilaterally. Soft tissues: The prevertebral soft tissues are within normal limits. However, there is evidence for a 9 mm right renal calculus. IMPRESSION: 1. Osteopenia with no acute osseous pathology. 2. Previous compression fractures of L2 and L3 are again seen. 3. Degenerative disc and degenerative facet joint disease. 4. Right renal calculus. ACT 112: Negative or not required by law. Electronically signed by: Grupo Leyva M.D. 12/09/2021 2:46 PM
--- NOTE | 2021-12-09 15:09 | Urology Progress Note ---
Date of Service December 09, 2021 Assessment & Plan (1) Chronic suprapubic catheter: Plan: Urology evaluation requested for SP tube replacement due to leaking. - 22F SP catheter exchanged without difficulty. Balloon inflated with 10 mL. - Patient tolerated procedure well, no complications noted. Catheter draining appropriately at completion. - Continue with monthly exchanges, or prn catheter malfunction/issues. - Keep outpatient urology follow-up as scheduled. - will sign off, please call our service with any additional questions/issues. Admission and Anticipated Discharge Date Admission Date: November 02, 2021 Subjective Urology evaluation requested for SP tube replacement due to leaking. Patient seen and examined at bedside this afternoon. Generally doing well, awaiting placement. Reports leaking urine from urethra. SP tube has been draining appropriately. Urine clear yellow with sediment. Denies pain or spasms at this time. No f/c/n/v. Offers no additional complaints. Review of Systems Constitutional: as per Subjective / HPI Gastrointestinal: as per Subjective / HPI Genitourinary: as per Subjective / HPI Physical Exam Constitutional: well developed and well nourished; no acute distress Respiratory: normal respiratory effort; no respiratory distress and no labored breathing Gastrointestinal (Abdomen): Inspection/Auscultation: abdomen normal to inspection; abdomen not distended Percussion/Palpation: abdomen soft; abdomen nontender Musculoskeletal: Head/Neck/Chest: normocephalic and head atraumatic Neurologic: awake Psychiatric: Orientation: alert and oriented x 3 Genitourinary: SP tube intact, patent and draining clear yellow urine with sediment. Using aseptic technique, a 22F SP catheter exchanged without difficulty. Balloon inflated with 10 mL. Patient tolerated procedure well. Catheter draining appropriately at completion. Results & Data ([facility]) Vital Signs (Past 12 Hours) Vital Signs Temp Pulse Resp BP Pulse Ox 12/09/21 07:25 36.8 C 83 18 96/66 L 97 PG Care Time/CCT Total # of Minutes Spent Total Time Spent with Patient: Total time spent is greater than 50% in coordination of care (as documented) at patient's floor/unit and/or counseling patient: Coding Level of Care Code 13634 Subseq Hosp Care Lvl 2 Diagnoses Chronic suprapubic catheter Z93.59
--- NOTE | 2021-12-09 17:36 | Hospitalist Progress Note ---
Date of Service December 09, 2021 Assessment & Plan (1) S/P ureteral stent placement: (2) Left ureteral stone: (3) Lumbar compression fracture: (4) UTI (urinary tract infection) due to urinary indwelling catheter: Plan: Acute metabolic encephalopathy Resolved Confusion likely due to complicated UTI Plan to discharge to rehab facility, placement pending UTI (urinary tract infection) due to urinary indwelling catheter: Complicated urinary tract infection w/ suprapubic catheter H/O neurogenic bladder with urine retention, left ureteral stone Urine Cx: Pseudomonas, Enterococcus Was on Zosyn>>Cefepime>>Zosyn [facility] ID : Recommends 2 week course of IV Zosyn completed IV antibiotic course Left ureteral stone Obstructive uropathy 11/05/21 -S/P cystoscopy, left stent placement, suprapubic cystostomy 11/19/2021 -patient was noted to have dark sonia urine with blood clots, urology reconsulted 11/26/21- Cystolitholapaxy, Left Ureteroscopy, Retrograde Pyelogram,Laser Trey truction or Extraction of Stone, Exchange Left Stent. Bladder stone removed and sent for analysis. Needs Renal ultrasound in 2-3 months to assess for any residual hydronephrosis or residual/new stones Lumbar compression fracture (L2) Reports increased pain while working with therapy a few days ago and again today. Repeat lumbar spine CT shows no change in L2 and L3 compression fractures. Will ask spine ortho to re-evaluate the patient due to increased pain. COVID-19 exposure Screen for Covid negative Remains asymptomatic Repeat COVID test 12/08 negative Constipation Continue bowel regimen Multiple sclerosis Severe multiple sclerosis with paraparesis and neurogenic bladder and suprapubic catheter Suprapubic catheter changed by urology on 12/09 due to leaking - Continue with monthly exchanges, or prn catheter malfunction/issues. Wheelchair-bound S/P Intrathecal baclofen pump Her pump medication was changed on 30 of October Appreciate pain management input. Follow up outpatient Elevated LFTs Likely drug-induced liver injury secondary to [place] GI evaluated - Likely plan for outpatient EUS Avoid hepatotoxic agents as able DVT Px Lovenox SQ Disposition - stable for discharge, placement pending Admission and Anticipated Discharge Date Admission Date: November 02, 2021 Supervising Physician Co-Signing Physician Notes Patient is seen and examined at bedside. Patient states having significant back pain after having physical therapy earlier today. Repeat lumbar CT showed no acute changes. Suprapubic catheter exchanged with the help of urology today. On exam patient is moderately built and nourished, no apparent distress, normocephalic atraumatic, EOMI, lungs are clear to auscultation, normal breath sounds, S1-S2, no murmur, abdomen soft, nontender, normal bowel sounds,+ Paraplegia B/L LE, Left UE 4/5, + ankle deformity. Patient is treated for complicated UTI, obstructive uropathy secondary to left ureteral stone. Will request orthopedics to reevaluate tomorrow. Currently waiting for placement. Repeat Covid screen negative. I personally reviewed the record. Patient is interviewed and examined at bedside. Patient's care is coordinated with Christy Nelson NP. Please refer to the documentation above for details of patient's presentation and for discussion of other issues. Subjective Patient seen and examined. Follow-up for UTI, left ureteral stone, obstructive uropathy, lumbar compression fracture. Placement pending. Patient again had increased back pain while working with therapy today. Suprapubic catheter changed by urolgy today due to leaking. No chest pain or shortness of breath. Denies abdominal pain and nausea. + BM. Review of Systems Review of Systems: ROS per HPI, all other systems reviewed and negative Physical Exam Constitutional: WD/WN, vitals as above no acute distress Respiratory: normal respiratory effort, lungs clear to auscultation Cardiovascular: Rate/Rhythm: regular rate and regular rhythm Vessels: normal peripheral pulses Extremities: no edema Gastrointestinal (Abdomen): Percussion/Palpation: abdomen soft; abdomen nontender Musculoskeletal: chronic BLLE weakness Skin: no rashes, warm and dry Neurologic: no acute focal motor deficit Psychiatric: A+Ox3, euthymic affect Genitourinary: SP catheter in place draining clear yellow urine Results & Data Results & Data ([facility]) Vital Signs (Past 12 Hours) Vital Signs Temp Pulse Resp BP Pulse Ox 12/09/21 17:15 36.9 C 81 18 111/72 94 12/09/21 07:25 36.8 C 83 18 96/66 L 97 Diagnostic Findings Lumbar Spine CT 12/09/21 12:13 CT lumbar spine wo con CLINICAL HISTORY: back pain, hx L2 compression fracture COMPARISON STUDY: 11/05/2021 CT DOSE: 556.79 mGycm TECHNIQUE: Standard CT of the Lumbar Spine was performed without IV contrast. A dose lowering technique was utilized adhering to the principles of ALARA. FINDINGS: Bones: The bones are osteopenic. Old compression fractures are again seen involving the inferior endplate of L2 and the superior endplate of L3. There is no evidence for an acute fracture or malalignment. The heights of the remaining lumbar vertebral bodies are maintained. The vertebral bodies are in anatomic alignment. Disc spaces: There is mild disc space narrowing at L1-2, L2-3 and L5-S1. Facet joints: Mild hypertrophic facet joint disease is present involving the lower 2 disc space levels. Mild degenerative changes are seen involving the SI joints bilaterally. Soft tissues: The prevertebral soft tissues are within normal limits. However, there is evidence for a 9 mm right renal calculus. IMPRESSION: 1. Osteopenia with no acute osseous pathology. 2. Previous compression fractures of L2 and L3 are again seen. 3. Degenerative disc and degenerative facet joint disease. 4. Right renal calculus. ACT 112: Negative or not required by law. Electronically signed by: Grupo Leyva M.D. 12/09/2021 2:46 PM
[2021-12-09] MEDS: LORazepam 1 MG TAB PO SCH (20:51)
[2021-12-10] MEDS: POLYETHYLENE (MIRALAX) 17 GM PACK PO PRN (07:59)
[2021-12-10] MEDS: DOCUSATE SODIUM/SENNA 50/8.6MG TAB PO SCH (08:00)
[2021-12-10] MEDS: FUROSEMIDE 40 MG TAB PO SCH (08:00)
[2021-12-10] MEDS: POTASSIUM CHLORIDE CRTAB 20 MEQ TABCR PO SCH (08:00)
[2021-12-10] MEDS: ADVANCED PROBIOTIC 1250 MG CAPSULE PO SCH (08:00)
[2021-12-10 08:20] LABS: BUN Creatinine Ratio 24.3 (10-20); Calcium 9.2 mg/dl (8.5-10.1); Creatinine Clr Calc Pharmacy 79.6 ml/min; Est GFR (Non-African American) 90.6 ml/min
[2021-12-10] MEDS: MoRPHine SULFATE 2 MG/ML CARP IV PRN (14:03)
[2021-12-10] MEDS ORDERED: MoRPHine SULFATE 2 MG/ML CARP IV STA (14:55)
--- NOTE | 2021-12-10 16:18 | Magnetic Resonance Report ---
MRI OF THE LUMBAR SPINE WITHOUT IV CONTRAST CLINICAL HISTORY: Low back pain. COMPARISON STUDY: CT scans of the lumbar spine dated 12/09/2021 and 11/05/2021. TECHNIQUE: MRI of the lumbar spine is performed utilizing various T1 and T2-weighted sequences in the axial and sagittal planes. IV contrast was not administered for this examination. FINDINGS: Lumbar spine: There is a mild chronic inferior endplate compression fracture of L2, as well as mild c hronic superior endplate compression fractures of L3 and L4. There is a mild acute to subacute superi or endplate compression fracture of L1 with associated marrow edema. This is unchanged from yesterday but is new from the 11/05/2021 examination. Vertebral body height is maintained at T12 and L5. The t ransverse and spinous processes appear intact. There is no evidence of spondylolysis. Marrow signal i ntensity is heterogeneous. No destructive bony lesion is seen. Intervertebral discs: There is mild degenerative disc desiccation. The disc spaces are preserved. Spinal cord: The visualized spinal cord is normal in morphology and signal intensity. The conus medul joe terminates at the level of L1. The nerve roots of the cauda equina are normal in morphology. L1-L2: Unremarkable. L2-L3: There is minimal disc bulge. The central canal and neural foramina are patent. L3-L4: There is minimal disc bulge. The central canal and neural foramina are patent. L4-L5: The central canal and neural foramina are patent. L5-S1: Unremarkable. Sacrum: The visualized sacrum is normal in morphology and signal intensity. Soft tissues: There is marked fatty atrophy of the paraspinous and iliopsoas musculature. The retrope ritoneal structures are grossly unremarkable but incompletely assessed. IMPRESSION: 1. There is an acute to subacute compression fracture of L1 with minimal loss of height and associate d marrow edema. This is unchanged from yesterday but new from the 11/05/2021 examination. 2. Chronic compression deformities of L2, L3, and L4 are unchanged. 3. There is no disc herniation, central canal stenosis, or neural foraminal narrowing seen throughout the lumbar spine. 4. There is marked fatty atrophy of the paraspinous musculature. Dictated: 12/10/2021 3:43 PM Transcribed: 12/10/2021 4:08 PM Loreta [id number] [email or web address] Electronically signed by: Angel Luis Frank M.D. 12/10/2021 4:17 PM
--- NOTE | 2021-12-10 17:04 | Hospitalist Progress Note ---
Date of Service December 10, 2021 Assessment & Plan (1) S/P ureteral stent placement: (2) Left ureteral stone: (3) Lumbar compression fracture: (4) UTI (urinary tract infection) due to urinary indwelling catheter: Plan: Acute metabolic encephalopathy Resolved Confusion likely due to complicated UTI Plan to discharge to rehab facility, placement pending. Lumbar compression fracture (L2) Reports increased pain with activity. Repeat lumbar spine CT shows no change in L2 and L3 compression fractures. Lumbar spine MRI ordered by spine Ortho - There is an acute to subacute compression fracture of L1 with minimal loss of height and associated marrow edema. Awaiting spine Ortho recs UTI (urinary tract infection) due to urinary indwelling catheter: Complicated urinary tract infection w/ suprapubic catheter H/O neurogenic bladder with urine retention, left ureteral stone Urine Cx: Pseudomonas, Enterococcus Was on Zosyn>>Cefepime>>Zosyn [facility] ID : Recommends 2 week course of IV Zosyn completed IV antibiotic course Left ureteral stone Obstructive uropathy 11/05/21 -S/P cystoscopy, left stent placement, suprapubic cystostomy 11/19/2021 -patient was noted to have dark sonia urine with blood clots, urology reconsulted 11/26/21- Cystolitholapaxy, Left Ureteroscopy, Retrograde Pyelogram,Laser Destruction or Extraction of Stone, Exchange Left Stent. Bladder stone removed and sent for analysis. Needs Renal ultrasound in 2-3 months to assess for any residual hydronephrosis or residual/new stones COVID-19 exposure Screen for Covid negative Remains asymptomatic Repeat COVID test 12/08 negative Constipation Continue bowel regimen Multiple sclerosis Severe multiple sclerosis with paraparesis and neurogenic bladder and suprapubic catheter Suprapubic catheter changed by urology on 12/09 due to leaking - Continue with monthly exchanges, or prn catheter malfunction/issues. Wheelchair-bound S/P Intrathecal baclofen pump Her pump medication was changed on 30 of October Appreciate pain management input. Follow up outpatient Elevated LFTs Likely drug-induced liver injury secondary to [place] GI evaluated - Likely plan for outpatient EUS Avoid hepatotoxic agents as able DVT Px Lovenox SQ Disposition - stable for discharge, placement pending Admission and Anticipated Discharge Date Admission Date: November 02, 2021 Supervising Physician Co-Signing Physician Notes Attending addendum The patient was seen and examined in medical floor She has been complaining of localized back pain without any radiation and/or without any problem with urine and or bowel habit On examination Remains stable hemodynamically Chestclear to auscultate bilaterally HeartS1, S2 regular Abdomenbenign with suprapubic catheter in situ Her labs, imaging studies reviewed Has back pain likely secondary to lumbar disc disease and doubt any radiculopathy Await MRI and Ortho evaluation Agree with assessment and plan as outlined above by Christy Blakely Subjective Patient seen and examined. Follow-up for UTI, left ureteral stone, obstructive uropathy, lumbar compression fracture. Placement pending. Low back pain continues with activity. No chest pain or shortness of breath. Denies abdominal pain or nausea. Suprapubic catheter exchanged by urology yesterday, leaking resolved. Review of Systems Review of Systems: ROS per HPI, all other systems reviewed and negative Physical Exam Constitutional: WD/WN, vitals as above Respiratory: normal respiratory effort, lungs clear to auscultation Cardiovascular: Rate/Rhythm: regular rate and regular rhythm Vessels: normal peripheral pulses Extremities: no edema Gastrointestinal (Abdomen): Percussion/Palpation: abdomen soft; abdomen nontender Musculoskeletal: Chronic lower extremity weakness Skin: no rashes, warm and dry Neurologic: No acute focal motor deficit noted Psychiatric: A+Ox3, euthymic affect Genitourinary: Suprapubic catheter in place, draining clear yellow urine Results & Data Results & Data ([facility]) Vital Signs (Past 12 Hours) Vital Signs Temp Pulse Resp BP Pulse Ox 12/10/21 16:00 36.7 C 71 16 107/74 97 12/10/21 08:29 36.5 C 69 16 117/77 97 Laboratory Results [facility] 12/10/21 07:03 Sodium 136 Potassium 4.0 Chloride 102 Carbon Dioxide 28 BUN 18 Creatinine 0.74 Glucose 94 Calcium 9.2 Diagnostic Findings Lumbar Spine MRI 12/10/21 08:36 MRI OF THE LUMBAR SPINE WITHOUT IV CONTRAST CLINICAL HISTORY: Low back pain. COMPARISON STUDY: CT scans of the lumbar spine dated 12/09/2021 and 11/05/2021. TECHNIQUE: MRI of the lumbar spine is performed utilizing various T1 and T2- weighted sequences in the axial and sagittal planes. IV contrast was not administered for this examination. FINDINGS: Lumbar spine: There is a mild chronic inferior endplate compression fracture of L2, as well as mild chronic superior endplate compression fractures of L3 and L4. There is a mild acute to subacute superior endplate compression fracture of L1 with associated marrow edema. This is unchanged from yesterday but is new from the 11/05/2021 examination. Vertebral body height is maintained at T12 and L5. The transverse and spinous processes appear intact. There is no evidence of spondylolysis. Marrow signal intensity is heterogeneous. No destructive bony lesion is seen. Intervertebral discs: There is mild degenerative disc desiccation. The disc spaces are preserved. Spinal cord: The visualized spinal cord is normal in morphology and signal intensity. The conus medullaris terminates at the level of L1. The nerve roots of the cauda equina are normal in morphology. L1-L2: Unremarkable. L2-L3: There is minimal disc bulge. The central canal and neural foramina are patent. L3-L4: There is minimal disc bulge. The central canal and neural foramina are patent. L4-L5: The central canal and neural foramina are patent. L5-S1: Unremarkable. Sacrum: The visualized sacrum is normal in morphology and signal intensity. Soft tissues: There is marked fatty atrophy of the paraspinous and iliopsoas musculature. The retroperitoneal structures are grossly unremarkable but incompletely assessed. IMPRESSION: 1. There is an acute to subacute compression fracture of L1 with minimal loss of height and associated marrow edema. This is unchanged from yesterday but new from the 11/05/2021 examination. 2. Chronic compression deformities of L2, L3, and L4 are unchanged. 3. There is no disc herniation, central canal stenosis, or neural foraminal narrowing seen throughout the lumbar spine. 4. There is marked fatty atrophy of the paraspinous musculature. Dictated: 12/10/2021 3:43 PM Transcribed: 12/10/2021 4:08 PM Loreta [id number] LIANA[facility] Electronically signed by: Angel Luis Frank M.D. 12/10/2021 4:17 PM
[2021-12-10] MEDS: LORazepam 1 MG TAB PO SCH (20:21)
[2021-12-10] MEDS: traMADol HCL 50 MG TABLET PO PRN (20:22)
[2021-12-11] MEDS: FUROSEMIDE 40 MG TAB PO SCH (08:26)
[2021-12-11] MEDS: ADVANCED PROBIOTIC 1250 MG CAPSULE PO SCH (08:26)
[2021-12-11] MEDS: POTASSIUM CHLORIDE CRTAB 20 MEQ TABCR PO SCH (08:26)
[2021-12-11] MEDS: DOCUSATE SODIUM/SENNA 50/8.6MG TAB PO SCH (08:26)
--- NOTE | 2021-12-11 12:49 | Orthopedic Progress Note ---
Date of Service December 11, 2021 Assessment & Plan (1) Lumbar compression fracture: Plan: MRI does demonstrate evidence of a small acute to subacute fracture of L1. There is no significant compression. The patient's symptom complex is more the lumbosacral junction. Does not consistent with an L1 fracture. Her symptoms may be more related to significant disuse that she has been bedridden for several weeks. We discussed beginning to attempt transfers from bed to chair to rebuild her strength. She will attempt this with physical therapy. Again at this time I see no indication for any surgical invention. Admission and Anticipated Discharge Date Admission Date: November 02, 2021 Subjective Patient states she has significant lumbosacral back pain when sitting up at the side of the bed. She has been bedridden for several weeks she states. She has not been in her specialized chair for several weeks. She has no discomfort while lying in bed with a semireclined position. She does note that she can move her toes but has not had the function of her legs for a significant amount of time. Physical Exam Physical Exam: On exam she appears comfortable at this time. Again she is a significant neuro deficit of bilateral extremities this is established. She did not have any discomfort when I help her sit up in bed. Results & Data ([facility]) Vital Signs (Past 12 Hours) Vital Signs Temp Pulse Resp BP Pulse Ox 12/11/21 05:52 36.5 C 71 14 94/62 L 97
--- NOTE | 2021-12-11 13:28 | Hospitalist Progress Note ---
Date of Service December 11, 2021 Assessment & Plan (1) S/P ureteral stent placement: (2) Left ureteral stone: (3) Lumbar compression fracture: (4) UTI (urinary tract infection) due to urinary indwelling catheter: Plan: Acute metabolic encephalopathy Resolved Confusion likely due to complicated UTI Plan to discharge to rehab facility, placement pending. Lumbar compression fracture (L2) Reports increased pain with activity. Repeat lumbar spine CT shows no change in L2 and L3 compression fractures. Lumbar spine MRI ordered by spine Ortho - There is an acute to subacute compression fracture of L1 with minimal loss of height and associated marrow edema. Awaiting spine Ortho recs UTI (urinary tract infection) due to urinary indwelling catheter: Complicated urinary tract infection w/ suprapubic catheter H/O neurogenic bladder with urine retention, left ureteral stone Urine Cx: Pseudomonas, Enterococcus Was on Zosyn>>Cefepime>>Zosyn Geisinger ID : Recommends 2 week course of IV Zosyn completed IV antibiotic course Left ureteral stone Obstructive uropathy 11/05/21 -S/P cystoscopy, left stent placement, suprapubic cystostomy 11/19/2021 -patient was noted to have dark sonia urine with blood clots, urology reconsulted 11/26/21- Cystolitholapaxy, Left Ureteroscopy, Retrograde Pyelogram,Laser Destruction or Extraction of Stone, Exchange Left Stent. Bladder stone removed and sent for analysis. Needs Renal ultrasound in 2-3 months to assess for any residual hydronephrosis or residual/new stones COVID-19 exposure Screen for Covid negative Remains asymptomatic Repeat COVID test 12/08 negative Constipation Continue bowel regimen Multiple sclerosis Severe multiple sclerosis with paraparesis and neurogenic bladder and suprapubic catheter Suprapubic catheter changed by urology on 12/09 due to leaking - Continue with monthly exchanges, or prn catheter malfunction/issues. Wheelchair-bound S/P Intrathecal baclofen pump Her pump medication was changed on 30 of October Appreciate pain management input. Follow up outpatient Elevated LFTs Likely drug-induced liver injury secondary to [place] GI evaluated - Likely plan for outpatient EUS Avoid hepatotoxic agents as able DVT Px Lovenox SQ Disposition - stable for discharge, placement pending Admission and Anticipated Discharge Date Admission Date: November 02, 2021 Supervising Physician Co-Signing Physician Notes Attending addendum: The patient was seen and examined in medical floor She has been complaining of low back pain and the MRI scan did not show any evidence of nerve entrapment She denies any other symptoms On examination Sitting on a chair without any acute distress Hemodynamically stable with blood pressure on the lower side at 94/62 Chestclear to auscultate bilaterally Heart-S1-S2, regular Abdomen-benign Extremities-negative Her labs and imaging studies reviewed Complicated UTI secondary to suprapubic catheter Remains a stable medically and agree with assessment and plan as outlined above by SAUL Baez Dr Review of Systems Review of Systems: ROS per HPI, all other systems reviewed and negative Physical Exam Physical Exam: Gen: WD/WN, NAD, sitting up in bed, A&Ox3 HEENT: Normocephalic, atraumatic, conjunctivae moist, sclerae anicteric, mucous membranes moist Lung: Clear to Auscultation bilaterally, no wheezes/rales/rhonchi Heart: Regular rate, regular rhythm, no murmurs, rubs, or gallops Abdomen: Soft, NT, ND +BS x 4 : Suprapubic quintanilla in place Extremities: paraplegic, no edema Skin: Warm, no rash Results & Data Results & Data ([facility]) Vital Signs (Past 12 Hours) Vital Signs Temp Pulse Resp BP Pulse Ox 12/11/21 05:52 36.5 C 71 14 94/62 L 97
[2021-12-11] MEDS: DICLOFENAC SOD 1% GEL 100 GM TUBE EXT SCH ×2 (16:04→20:03)
[2021-12-11] MEDS: IBUPROFEN 200 MG TAB PO PRN (20:03)
[2021-12-11] MEDS: LORazepam 1 MG TAB PO SCH (20:03)
[2021-12-12] MEDS: DOCUSATE SODIUM/SENNA 50/8.6MG TAB PO SCH (07:53)
[2021-12-12] MEDS: FUROSEMIDE 40 MG TAB PO SCH (07:54)
[2021-12-12] MEDS: ADVANCED PROBIOTIC 1250 MG CAPSULE PO SCH (07:55)
[2021-12-12] MEDS: POTASSIUM CHLORIDE CRTAB 20 MEQ TABCR PO SCH (07:55)
[2021-12-12] MEDS: DICLOFENAC SOD 1% GEL 100 GM TUBE EXT SCH ×3 (07:55→20:07)
--- NOTE | 2021-12-12 11:50 | Hospitalist Progress Note ---
Date of Service December 12, 2021 Assessment & Plan (1) S/P ureteral stent placement: (2) Left ureteral stone: (3) Lumbar compression fracture: (4) UTI (urinary tract infection) due to urinary indwelling catheter: Plan: Acute metabolic encephalopathy Resolved Confusion likely due to complicated UTI Plan to discharge to rehab facility, placement pending Lumbar compression fracture (L2) Reports increased pain with activity. Repeat lumbar spine CT shows no change in L2 and L3 compression fractures. Lumbar spine MRI ordered by spine Ortho - There is an acute to subacute compression fracture of L1 with minimal loss of height and associated marrow edema. Per Dr. Yusuf, * No significant compression on spinal MRI. Feels symptoms more related to significant disuse as she has been bedridden over past few week * Will attempt to optimize mobility with help of PT, nataliia to upright position more frequently * No indication for any surgical invention UTI (urinary tract infection) due to urinary indwelling catheter: Complicated urinary tract infection w/ suprapubic catheter H/O neurogenic bladder with urine retention, left ureteral stone Urine Cx: Pseudomonas, Enterococcus Was on Zosyn>>Cefepime>>Zosyn Geisinger ID : Recommends 2 week course of IV Zosyn Completed IV antibiotic course Left ureteral stone Obstructive uropathy 11/05/21 -S/P cystoscopy, left stent placement, suprapubic cystostomy 11/19/2021 -patient was noted to have dark sonia urine with blood clots, urology reconsulted 11/26/21- Cystolitholapaxy, Left Ureteroscopy, Retrograde Pyelogram,Laser Destruction or Extraction of Stone, Exchange Left Stent. Bladder stone removed and sent for analysis. Needs Renal ultrasound in 2-3 months to assess for any residual hydronephrosis or residual/new stones COVID-19 exposure Screen for Covid negative Remains asymptomatic Repeat COVID test 12/08 negative Constipation Continue bowel regimen Multiple sclerosis Severe multiple sclerosis with paraparesis and neurogenic bladder and suprapubic catheter Suprapubic catheter changed by urology on 12/09 due to leaking - Continue with monthly exchanges, or prn catheter malfunction/issues. Wheelchair-bound S/P Intrathecal baclofen pump Her pump medication was changed on 30 of October Appreciate pain management input. Follow up outpatient Elevated LFTs Likely drug-induced liver injury secondary to [place] GI evaluated - Likely plan for outpatient EUS Avoid hepatotoxic agents as able DVT Px Lovenox SQ Disposition - stable for discharge, placement pending Admission and Anticipated Discharge Date Admission Date: November 02, 2021 Supervising Physician Co-Signing Physician Notes Attending addendum The patient was seen and examined in medical floor She has been stable and waiting to be accepted in transfer Her back pain is better with diclofenac cream On examination Lying in bed comfortably Hemodynamically stable Chest-clear to auscultate bilaterally Heart-S1-S2, regular Abdomen-benign, suprapubic tube is in situ -[employer]-alert, awake and oriented Her labs and medications reviewed Medically stable and waiting to be transferred Agree with assessment and plan as outlined above by SAUL Baez DR Subjective Seen and examined in 357-1 sitting in bed. Back pain still minimal this morning, waiting to work with PT. Voltaren gel helping topically with back pain. No F/C, CP, SOB, N/V, abdominal pain, no BM in 3 days but passing gas. Will optimize bowel regimen. Quintanilla catheter in place draining urine. Review of Systems Review of Systems: ROS per HPI, all other systems reviewed and negative Musculoskeletal: She has multiple sclerosis with paraparesis Physical Exam Physical Exam: Gen: WD/WN, NAD, sitting up in bed, A&Ox3 HEENT: Normocephalic, atraumatic, conjunctivae moist, sclerae anicteric, mucous membranes moist Lung: Clear to Auscultation bilaterally, no wheezes/rales/rhonchi Heart: Regular rate, regular rhythm, no murmurs, rubs, or gallops Abdomen: Soft, NT, ND +BS x 4 : Suprapubic quintanilla in place Extremities: paraplegic, no edema Skin: Warm, no rash Results & Data Results & Data ([facility]) Vital Signs (Past 12 Hours) Vital Signs Temp Pulse Resp BP Pulse Ox 12/12/21 08:46 36.6 C 67 18 97/61 L 98
[2021-12-12] MEDS: MoRPHine SULFATE 2 MG/ML CARP IV PRN (12:07)
[2021-12-12] MEDS ORDERED: bisacodyL 5 MG TABEC PO ONE (12:26)
[2021-12-12] MEDS: LORazepam 1 MG TAB PO SCH (20:07)
[2021-12-12] MEDS: IBUPROFEN 200 MG TAB PO PRN (20:08)
[2021-12-13] MEDS: POTASSIUM CHLORIDE CRTAB 20 MEQ TABCR PO SCH (08:48)
[2021-12-13] MEDS: FUROSEMIDE 40 MG TAB PO SCH (08:48)
[2021-12-13] MEDS: DOCUSATE SODIUM/SENNA 50/8.6MG TAB PO SCH (08:48)
[2021-12-13] MEDS: DICLOFENAC SOD 1% GEL 100 GM TUBE EXT SCH ×3 (08:48→21:08)
--- NOTE | 2021-12-13 15:36 | Hospitalist Progress Note ---
Date of Service December 13, 2021 Assessment & Plan (1) S/P ureteral stent placement: (2) Left ureteral stone: (3) Lumbar compression fracture: (4) UTI (urinary tract infection) due to urinary indwelling catheter: Plan: Acute metabolic encephalopathy Resolved Confusion likely due to complicated UTI Plan to discharge to rehab facility, placement pending Lumbar compression fracture (L2) Reports increased pain with activity. Repeat lumbar spine CT shows no change in L2 and L3 compression fractures. Lumbar spine MRI ordered by spine Ortho - There is an acute to subacute compression fracture of L1 with minimal loss of height and associated marrow edema. Per Dr. Yusuf, * No significant compression on spinal MRI. Feels symptoms more related to significant disuse as she has been bedridden over past few week * Will attempt to optimize mobility with help of PT, nataliia to upright position more frequently * No indication for any surgical invention The pain is likely secondary to prolonged sitting and also lying in bed Pain seems to be reasonably controlled UTI (urinary tract infection) due to urinary indwelling catheter: Complicated urinary tract infection w/ suprapubic catheter H/O neurogenic bladder with urine retention, left ureteral stone Urine Cx: Pseudomonas, Enterococcus Was on Zosyn>>Cefepime>>Zosyn Geisinger ID : Recommends 2 week course of IV Zosyn Completed IV antibiotic course Denies any urinary symptoms and will be discharged when accepted Left ureteral stone Obstructive uropathy 11/05/21 -S/P cystoscopy, left stent placement, suprapubic cystostomy 11/19/2021 -patient was noted to have dark sonia urine with blood clots, urology reconsulted 11/26/21- Cystolitholapaxy, Left Ureteroscopy, Retrograde Pyelogram,Laser Destruction or Extraction of Stone, Exchange Left Stent. Bladder stone removed and sent for analysis. Needs Renal ultrasound in 2-3 months to assess for any residual hydronephrosis or residual/new stones COVID-19 exposure Screen for Covid negative Remains asymptomatic Repeat COVID test 12/08 negative Constipation Continue bowel regimen Multiple sclerosis Severe multiple sclerosis with paraparesis and neurogenic bladder and suprapubic catheter Suprapubic catheter changed by urology on 12/09 due to leaking - Continue with monthly exchanges, or prn catheter malfunction/issues. Wheelchair-bound S/P Intrathecal baclofen pump Her pump medication was changed on 30 of October Appreciate pain management input. Follow up outpatient Elevated LFTs Likely drug-induced liver injury secondary to [place] GI evaluated - Likely plan for outpatient EUS Avoid hepatotoxic agents as able DVT Px Lovenox SQ Disposition - stable for discharge, placement pending Admission and Anticipated Discharge Date Admission Date: November 02, 2021 Subjective 12/13/2021 The patient was seen and examined in medical floor She has been feeling much better still complains to have low back pain She has been passing most of her time on sitting down or lying Review of Systems Review of Systems: All systems reviewed and are unremarkable except as noted below Musculoskeletal: She has multiple sclerosis with paraparesis Physical Exam Physical Exam: Lying in bed comfortably Constitutional: average body habitus; not ill appearing Eyes: PERRL, conjunctivae normal, anicteric sclerae ENMT: external ear and nose normal, oropharynx normal Neck: trachea midline, no thyromegaly Respiratory: no respiratory distress Auscultation: lungs clear to auscultation bilaterally Cardiovascular: Rate/Rhythm: regular rate and regular rhythm; not tachycardic Heart Sounds: normal S1 and normal S2; no murmur Extremities: + edema (Trace edema bilaterally) Gastrointestinal (Abdomen): Inspection/Auscultation: normal bowel sounds; abdomen not distended Percussion/Palpation: abdomen soft; abdomen nontender Musculoskeletal: Extremities: + lower leg abnormality (Flexural deformities of the ankles) Neurologic: Alert, awake and oriented x3 Lymphatic: no cervical or axillary lymphadenopathy Results & Data Results & Data ([facility]) Vital Signs (Past 12 Hours) Vital Signs Temp Pulse Resp BP Pulse Ox 12/13/21 07:33 36.6 C 75 20 101/66 97 Medications Administered Current Inpatient Medications Diclofenac Sodium (Diclofenac Sod 1% Gel 100 Gm Tube) 2 gm EXT TID CAMILA Stop: 01/10/22 13:59 Last Admin: 12/13/21 14:33 Dose: 2 gm Documented by: Furosemide (Furosemide 40 Mg Tab) 40 mg PO DAILY CAMILA Stop: 12/27/21 08:59 Last Admin: 12/13/21 08:48 Dose: 40 mg Documented by: Hyoscyamine (Hyoscyamine Sulfate 0.125 Mg Tab) 0.125 mg PO TID PRN PRN Reason: Muscle Spasm Stop: 12/26/21 21:16 Last Admin: 11/27/21 08:36 Dose: 0.125 mg Documented by: Ibuprofen (Ibuprofen 200 Mg Tab) 200 mg PO Q6H PRN PRN Reason: Mild Pain Stop: 12/19/21 22:20 Last Admin: 12/12/21 20:08 Dose: 200 mg Documented by: Lorazepam (Lorazepam 1 Mg Tab) 1 mg PO HS [facility] Stop: 01/02/22 22:44 Last Admin: 12/12/21 20:07 Dose: 1 mg Documented by: Morphine Sulfate (Morphine Sulfate 2 Mg/Ml Carp) 2 mg IV Q4H PRN PRN Reason: Pain Stop: 12/23/21 13:34 Last Admin: 12/12/21 12:07 Dose: 2 mg Documented by: Polyethylene Glycol (Polyethylene (Miralax) 17 Gm Pack) 17 gm PO DAILY PRN PRN Reason: Constipation Stop: 12/28/21 10:38 Last Admin: 12/10/21 07:59 Dose: 17 gm Documented by: Potassium Chloride (Potassium Chloride Crtab 20 Meq Tabcr) 20 meq PO DAILY [facility] Stop: 01/09/22 08:59 Last Admin: 12/13/21 08:48 Dose: 20 meq Documented by: Senna/Docusate Sodium (Docusate Sodium/Senna 50/8.6mg Tab) 1 tab PO QAM [facility] Stop: 12/28/21 10:44 Last Admin: 12/13/21 08:48 Dose: 1 tab Documented by:
[2021-12-13] MEDS: IBUPROFEN 200 MG TAB PO PRN (15:58)
[2021-12-13] MEDS: LORazepam 1 MG TAB PO SCH (21:10)
[2021-12-14] MEDS: DICLOFENAC SOD 1% GEL 100 GM TUBE EXT SCH ×3 (08:31→20:23)
[2021-12-14] MEDS: DOCUSATE SODIUM/SENNA 50/8.6MG TAB PO SCH (08:31)
[2021-12-14] MEDS: POTASSIUM CHLORIDE CRTAB 20 MEQ TABCR PO SCH (08:31)
[2021-12-14] MEDS: FUROSEMIDE 40 MG TAB PO SCH (08:31)
--- NOTE | 2021-12-14 14:45 | Hospitalist Progress Note ---
Date of Service December 14, 2021 Assessment & Plan (1) S/P ureteral stent placement: (2) Left ureteral stone: (3) Lumbar compression fracture: (4) UTI (urinary tract infection) due to urinary indwelling catheter: Plan: Acute metabolic encephalopathy Resolved Confusion likely due to complicated UTI Plan to discharge to rehab facility, placement pending Lumbar compression fracture (L2) Reports increased pain with activity. Repeat lumbar spine CT shows no change in L2 and L3 compression fractures. Lumbar spine MRI ordered by spine Ortho - There is an acute to subacute compression fracture of L1 with minimal loss of height and associated marrow edema. Per Dr. Yusuf, * No significant compression on spinal MRI. Feels symptoms more related to significant disuse as she has been bedridden over past few week * Will attempt to optimize mobility with help of PT, nataliia to upright position more frequently * No indication for any surgical invention The pain is likely secondary to prolonged sitting and also lying in bed Pain seems to be reasonably controlled No acute symptoms UTI (urinary tract infection) due to urinary indwelling catheter: Complicated urinary tract infection w/ suprapubic catheter H/O neurogenic bladder with urine retention, left ureteral stone Urine Cx: Pseudomonas, Enterococcus Was on Zosyn>>Cefepime>>Zosyn Geisinger ID : Recommends 2 week course of IV Zosyn Completed IV antibiotic course Denies any urinary symptoms and will be discharged when accepted Left ureteral stone Obstructive uropathy 11/05/21 -S/P cystoscopy, left stent placement, suprapubic cystostomy 11/19/2021 -patient was noted to have dark sonia urine with blood clots, urology reconsulted 11/26/21- Cystolitholapaxy, Left Ureteroscopy, Retrograde Pyelogram,Laser Destruction or Extraction of Stone, Exchange Left Stent. Bladder stone removed and sent for analysis. Needs Renal ultrasound in 2-3 months to assess for any residual hydronephrosis or residual/new stones Denies any pain in the abdomen COVID-19 exposure Screen for Covid negative Remains asymptomatic Repeat COVID test 12/08 negative Constipation Continue bowel regimen Multiple sclerosis Severe multiple sclerosis with paraparesis and neurogenic bladder and suprapubic catheter Suprapubic catheter changed by urology on 12/09 due to leaking - Continue with monthly exchanges, or prn catheter malfunction/issues. Wheelchair-bound S/P Intrathecal baclofen pump Her pump medication was changed on 30 of October Appreciate pain management input. Follow up outpatient No exacerbation Elevated LFTs Likely drug-induced liver injury secondary to [place] GI evaluated - Likely plan for outpatient EUS Avoid hepatotoxic agents as able DVT Px Lovenox SQ Disposition - stable for discharge, placement pending Admission and Anticipated Discharge Date Admission Date: November 02, 2021 Subjective 12/13/2021 The patient was seen and examined in medical floor She has been feeling much better still complains to have low back pain She has been passing most of her time on sitting down or lying 12/14/2021 The patient was seen in the medical floor She has been stable denies any significant symptoms Review of Systems Review of Systems: All systems reviewed and are unremarkable except as noted below Musculoskeletal: She has multiple sclerosis with paraparesis Physical Exam Physical Exam: Lying in bed comfortably Constitutional: average body habitus; not ill appearing Eyes: PERRL, conjunctivae normal, anicteric sclerae ENMT: external ear and nose normal, oropharynx normal Neck: trachea midline, no thyromegaly Respiratory: no respiratory distress Auscultation: lungs clear to auscultation bilaterally Cardiovascular: Rate/Rhythm: regular rate and regular rhythm; not tachycardic Heart Sounds: normal S1 and normal S2; no murmur Extremities: + edema (Trace edema bilaterally) Gastrointestinal (Abdomen): Inspection/Auscultation: normal bowel sounds; abdomen not distended Percussion/Palpation: abdomen soft; abdomen nontender Musculoskeletal: Extremities: + lower leg abnormality (Flexural deformities of the ankles) Lymphatic: no cervical or axillary lymphadenopathy Results & Data Results & Data ([facility]) Vital Signs (Past 12 Hours) Vital Signs Temp Pulse Resp BP Pulse Ox 12/14/21 07:30 36.8 C 73 18 111/71 100 Medications Administered Current Inpatient Medications Diclofenac Sodium (Diclofenac Sod 1% Gel 100 Gm Tube) 2 gm EXT TID [facility] Stop: 01/10/22 13:59 Last Admin: 12/14/21 14:12 Dose: Not Given Documented by: Furosemide (Furosemide 40 Mg Tab) 40 mg PO DAILY [facility] Stop: 12/27/21 08:59 Last Admin: 12/14/21 08:31 Dose: 40 mg Documented by: Hyoscyamine (Hyoscyamine Sulfate 0.125 Mg Tab) 0.125 mg PO TID PRN PRN Reason: Muscle Spasm Stop: 12/26/21 21:16 Last Admin: 11/27/21 08:36 Dose: 0.125 mg Documented by: Ibuprofen (Ibuprofen 200 Mg Tab) 200 mg PO Q6H PRN PRN Reason: Mild Pain Stop: 12/19/21 22:20 Last Admin: 12/13/21 15:58 Dose: 200 mg Documented by: Lorazepam (Lorazepam 1 Mg Tab) 1 mg PO HS [facility] Stop: 01/02/22 22:44 Last Admin: 12/13/21 21:10 Dose: 1 mg Documented by: Morphine Sulfate (Morphine Sulfate 2 Mg/Ml Carp) 2 mg IV Q4H PRN PRN Reason: Pain Stop: 12/23/21 13:34 Last Admin: 12/12/21 12:07 Dose: 2 mg Documented by: Polyethylene Glycol (Polyethylene (Miralax) 17 Gm Pack) 17 gm PO DAILY PRN PRN Reason: Constipation Stop: 12/28/21 10:38 Last Admin: 12/10/21 07:59 Dose: 17 gm Documented by: Potassium Chloride (Potassium Chloride Crtab 20 Meq Tabcr) 20 meq PO DAILY [facility] Stop: 01/09/22 08:59 Last Admin: 12/14/21 08:31 Dose: 20 meq Documented by: Senna/Docusate Sodium (Docusate Sodium/Senna 50/8.6mg Tab) 1 tab PO QAM [facility] Stop: 12/28/21 10:44 Last Admin: 12/14/21 08:31 Dose: 1 tab Documented by:
[2021-12-14] MEDS: LORazepam 1 MG TAB PO SCH (20:23)
[2021-12-15] MEDS: IBUPROFEN 200 MG TAB PO PRN (03:22)
[2021-12-15 07:41] LABS: Basophils # (auto) 0.03 K/uL (0-0.2); Basophils % (auto) 0.5 %; Eosinophils # (auto) 0.15 K/uL (0-0.5); Eosinophils % (auto) 2.3 %; Hematocrit (blood only) 37.6 % (37-47); Hemoglobin 12.1 g/dL (12.0-16.0); Immature Granulocytes # (auto) 0.01 K/uL (0.00-0.02); Immature Granulocytes % (auto) 0.2 %; Lymphocytes # (auto) 1.35 K/uL (1.2-3.4); Lymphocytes % (auto) 20.8 %; Mean Corpuscular Hemoglobin 31.2 pg (25-34); Mean Corpuscular Hgb Conc 32.2 g/dL (32-36); Mean Corpuscular Volume 96.9 fL (80-100); Mean Platelet Volume 11.9 fL (7.4-10.4); Monocytes # (auto) 0.51 K/uL (0.11-0.59); Monocytes % (auto) 7.9 %; Neutrophils # (auto) 4.43 K/uL (1.4-6.5); Neutrophils % (auto) 68.3 %; Platelet Count 279 K/uL (130-400); RDW Coefficient of Variation 14.7 % (11.5-14.5); RDW Standard Deviation 52.7 fL (36.4-46.3); Red Blood Count 3.88 M/uL (4.2-5.4); White Blood Count 6.48 K/uL (4.8-10.8)
[2021-12-15 08:06] LABS: BUN Creatinine Ratio 28.6 (10-20); Calcium 8.9 mg/dl (8.5-10.1); Creatinine Clr Calc Pharmacy 76.5 ml/min; Est GFR (Non-African American) 86.3 ml/min; Potassium 3.5 mmol/L (3.5-5.1)
[2021-12-15] MEDS: POTASSIUM CHLORIDE CRTAB 20 MEQ TABCR PO SCH (08:21)
[2021-12-15] MEDS: DOCUSATE SODIUM/SENNA 50/8.6MG TAB PO SCH (08:21)
[2021-12-15] MEDS: FUROSEMIDE 40 MG TAB PO SCH (08:21)
[2021-12-15] MEDS: DICLOFENAC SOD 1% GEL 100 GM TUBE EXT SCH ×3 (08:22→22:35)
[2021-12-15] MEDS ORDERED: IBUPROFEN 200 MG TAB PO PRN (15:44)
--- NOTE | 2021-12-15 15:44 | Hospitalist Progress Note ---
Date of Service December 15, 2021 Assessment & Plan (1) S/P ureteral stent placement: (2) Left ureteral stone: (3) Lumbar compression fracture: (4) UTI (urinary tract infection) due to urinary indwelling catheter: Plan: Acute metabolic encephalopathy Resolved Confusion likely due to complicated UTI Plan to discharge to rehab facility, placement pending Lumbar compression fracture (L2) Reports increased pain with activity. Repeat lumbar spine CT shows no change in L2 and L3 compression fractures. Lumbar spine MRI ordered by spine Ortho - There is an acute to subacute compression fracture of L1 with minimal loss of height and associated marrow edema. Per Dr. Yusuf, * No significant compression on spinal MRI. Feels symptoms more related to significant disuse as she has been bedridden over past few week * Will attempt to optimize mobility with help of PT, nataliia to upright position more frequently * No indication for any surgical invention The pain is likely secondary to prolonged sitting and also lying in bed Pain seems to be reasonably controlled No acute symptoms Will increase NSAID doses UTI (urinary tract infection) due to urinary indwelling catheter: Complicated urinary tract infection w/ suprapubic catheter H/O neurogenic bladder with urine retention, left ureteral stone Urine Cx: Pseudomonas, Enterococcus Was on Zosyn>>Cefepime>>Zosyn [facility] ID : Recommends 2 week course of IV Zosyn Completed IV antibiotic course Denies any urinary symptoms and will be discharged when accepted Left ureteral stone Obstructive uropathy 11/05/21 -S/P cystoscopy, left stent placement, suprapubic cystostomy 11/19/2021 -patient was noted to have dark sonia urine with blood clots, urology reconsulted 11/26/21- Cystolitholapaxy, Left Ureteroscopy, Retrograde Pyelogram,Laser Destruction or Extraction of Stone, Exchange Left Stent. Bladder stone removed and sent for analysis. Needs Renal ultrasound in 2-3 months to assess for any residual hydronephrosis or residual/new stones Denies any pain in the abdomen COVID-19 exposure Screen for Covid negative Remains asymptomatic Repeat COVID test 12/08 negative Constipation Continue bowel regimen Multiple sclerosis Severe multiple sclerosis with paraparesis and neurogenic bladder and suprapubic catheter Suprapubic catheter changed by urology on 12/09 due to leaking - Continue with monthly exchanges, or prn catheter malfunction/issues. Wheelchair-bound S/P Intrathecal baclofen pump Her pump medication was changed on 30 of October Appreciate pain management input. Follow up outpatient No exacerbation Elevated LFTs Likely drug-induced liver injury secondary to [place] GI evaluated - Likely plan for outpatient EUS Avoid hepatotoxic agents as able DVT Px Lovenox SQ Disposition - stable for discharge, placement pending Admission and Anticipated Discharge Date Admission Date: November 02, 2021 Subjective 12/13/2021 The patient was seen and examined in medical floor She has been feeling much better still complains to have low back pain She has been passing most of her time on sitting down or lying 12/14/2021 The patient was seen in the medical floor She has been stable denies any significant symptoms 12/15/2021 The patient was seen and examined in medical floor She complains to have some pain at the back but otherwise stable Review of Systems Review of Systems: All systems reviewed and are unremarkable except as noted below Musculoskeletal: She has multiple sclerosis with paraparesis Physical Exam Physical Exam: Lying in bed comfortably Constitutional: average body habitus; not ill appearing Eyes: PERRL, conjunctivae normal, anicteric sclerae ENMT: external ear and nose normal, oropharynx normal Neck: trachea midline, no thyromegaly Respiratory: no respiratory distress Auscultation: lungs clear to auscultation bilaterally Cardiovascular: Rate/Rhythm: regular rate and regular rhythm; not tachycardic Heart Sounds: normal S1 and normal S2; no murmur Extremities: + edema (Trace edema bilaterally) Gastrointestinal (Abdomen): Inspection/Auscultation: normal bowel sounds; abdomen not distended Percussion/Palpation: abdomen soft; abdomen nontender Musculoskeletal: Extremities: + lower leg abnormality (Flexural deformities of the ankles) Neurologic: normal touch/pain/proprioception 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 Lymphatic: no cervical or axillary lymphadenopathy Results & Data Results & Data ([facility]) Vital Signs (Past 12 Hours) Vital Signs Temp Pulse Resp BP Pulse Ox 12/15/21 14:07 36.6 C 85 16 100/68 94 12/15/21 08:34 36.7 C 76 16 108/69 95 Laboratory Results Short CBC 12/15/21 Range/Units 06:49 WBC 6.48 (4.8-10.8) K/uL Hgb 12.1 (12.0-16.0) g/dL Hct 37.6 (37-47) % Plt Count 279 (130-400) K/uL BMP 12/15/21 06:49 Sodium 140 Potassium 3.5 Chloride 105 Carbon Dioxide 29 BUN 22 Creatinine 0.77 Glucose 89 Calcium 8.9 Medications Administered Current Inpatient Medications Diclofenac Sodium (Diclofenac Sod 1% Gel 100 Gm Tube) 2 gm EXT TID CAMILA Stop: 01/10/22 13:59 Last Admin: 12/15/21 13:09 Dose: Not Given Documented by: Furosemide (Furosemide 40 Mg Tab) 40 mg PO DAILY CAMILA Stop: 12/27/21 08:59 Last Admin: 12/15/21 08:21 Dose: 40 mg Documented by: Hyoscyamine (Hyoscyamine Sulfate 0.125 Mg Tab) 0.125 mg PO TID PRN PRN Reason: Muscle Spasm Stop: 12/26/21 21:16 Last Admin: 11/27/21 08:36 Dose: 0.125 mg Documented by: Ibuprofen (Ibuprofen 200 Mg Tab) 200 mg PO Q6H PRN PRN Reason: Mild Pain Stop: 12/19/21 22:20 Last Admin: 12/15/21 03:22 Dose: 200 mg Documented by: Lorazepam (Lorazepam 1 Mg Tab) 1 mg PO HS CAMILA Stop: 01/02/22 22:44 Last Admin: 12/14/21 20:23 Dose: 1 mg Documented by: Morphine Sulfate (Morphine Sulfate 2 Mg/Ml Carp) 2 mg IV Q4H PRN PRN Reason: Pain Stop: 12/23/21 13:34 Last Admin: 12/12/21 12:07 Dose: 2 mg Documented by: Polyethylene Glycol (Polyethylene (Miralax) 17 Gm Pack) 17 gm PO DAILY PRN PRN Reason: Constipation Stop: 12/28/21 10:38 Last Admin: 12/10/21 07:59 Dose: 17 gm Documented by: Potassium Chloride (Potassium Chloride Crtab 20 Meq Tabcr) 20 meq PO DAILY CAMILA Stop: 01/09/22 08:59 Last Admin: 12/15/21 08:21 Dose: 20 meq Documented by: Senna/Docusate Sodium (Docusate Sodium/Senna 50/8.6mg Tab) 1 tab PO QAM CAMILA Stop: 12/28/21 10:44 Last Admin: 12/15/21 08:21 Dose: 1 tab Documented by:
[2021-12-15] MEDS: LORazepam 1 MG TAB PO SCH (22:38)
[2021-12-16] MEDS: POTASSIUM CHLORIDE CRTAB 20 MEQ TABCR PO SCH (08:29)
[2021-12-16] MEDS: FUROSEMIDE 40 MG TAB PO SCH (08:29)
[2021-12-16] MEDS: DOCUSATE SODIUM/SENNA 50/8.6MG TAB PO SCH (08:29)
[2021-12-16] MEDS: DICLOFENAC SOD 1% GEL 100 GM TUBE EXT SCH ×3 (08:30→21:02)
[2021-12-16 10:43] LABS: Influenza A virus by PCR Negative (Neg); Influenza B virus by PCR Negative (Neg); RSV by PCR Negative (Neg); SARS CoV2 RNA(COVID-19) InHosp NEGATIVE (Negative)
--- NOTE | 2021-12-16 17:58 | Hospitalist Progress Note ---
Date of Service December 16, 2021 Assessment & Plan (1) S/P ureteral stent placement: (2) Left ureteral stone: (3) Lumbar compression fracture: (4) UTI (urinary tract infection) due to urinary indwelling catheter: Plan: Acute metabolic encephalopathy Resolved Confusion likely due to complicated UTI Plan to discharge to rehab facility, Remains medically stable and will be transferred to [facility] tomorrow morning Lumbar compression fracture (L2) Reports increased pain with activity. Repeat lumbar spine CT shows no change in L2 and L3 compression fractures. Lumbar spine MRI ordered by spine Ortho - There is an acute to subacute compression fracture of L1 with minimal loss of height and associated marrow edema. Per Dr. Yusuf, * No significant compression on spinal MRI. Feels symptoms more related to significant disuse as she has been bedridden over past few week * Will attempt to optimize mobility with help of PTnataliia to upright position more frequently * No indication for any surgical invention The pain is likely secondary to prolonged sitting and also lying in bed Pain seems to be reasonably controlled No acute symptoms Will increase NSAID doses-pain seems to be controlled UTI (urinary tract infection) due to urinary indwelling catheter: Complicated urinary tract infection w/ suprapubic catheter H/O neurogenic bladder with urine retention, left ureteral stone Urine Cx: Pseudomonas, Enterococcus Was on Zosyn>>Cefepime>>Zosyn [facility] ID : Recommends 2 week course of IV Zosyn Completed IV antibiotic course Denies any urinary symptoms and will be discharged when accepted Left ureteral stone Obstructive uropathy 11/05/21 -S/P cystoscopy, left stent placement, suprapubic cystostomy 11/19/2021 -patient was noted to have dark sonia urine with blood clots, urology reconsulted 11/26/21- Cystolitholapaxy, Left Ureteroscopy, Retrograde Pyelogram,Laser Destruction or Extraction of Stone, Exchange Left Stent. Bladder stone removed and sent for analysis. Needs Renal ultrasound in 2-3 months to assess for any residual hydronephrosis or residual/new stones Denies any pain in the abdomen COVID-19 exposure Screen for Covid negative Remains asymptomatic Repeat COVID test 12/08 negative Constipation Continue bowel regimen Multiple sclerosis Severe multiple sclerosis with paraparesis and neurogenic bladder and suprapubic catheter Suprapubic catheter changed by urology on 2/1 due to leaking - Continue with monthly exchanges, or prn catheter malfunction/issues. Wheelchair-bound S/P Intrathecal baclofen pump Her pump medication was changed on 30 of October Appreciate pain management input. Follow up outpatient No exacerbation Elevated LFTs Likely drug-induced liver injury secondary to [place]zet GI evaluated - Likely plan for outpatient EUS Avoid hepatotoxic agents as able DVT Px Lovenox SQ Disposition -she has been accepted to [facility] and will be discharged tomorrow morning Admission and Anticipated Discharge Date Admission Date: November 02, 2021 Subjective 12/13/2021 The patient was seen and examined in medical floor She has been feeling much better still complains to have low back pain She has been passing most of her time on sitting down or lying 12/14/2021 The patient was seen in the medical floor She has been stable denies any significant symptoms 12/15/2021 The patient was seen and examined in medical floor She complains to have some pain at the back but otherwise stable 12/16/2021 The patient was seen and examined in medical floor She has been stable and will be going to half-way facility at [facility] tomorrow morning Denies any significant symptoms except minimal pain at the lower back Review of Systems Review of Systems: All systems reviewed and are unremarkable except as noted below Musculoskeletal: She has multiple sclerosis with paraparesis Physical Exam Physical Exam: Lying in bed comfortably Constitutional: average body habitus; not ill appearing Eyes: PERRL, conjunctivae normal, anicteric sclerae ENMT: external ear and nose normal, oropharynx normal Neck: trachea midline, no thyromegaly Respiratory: no respiratory distress Auscultation: lungs clear to auscultation bilaterally Cardiovascular: Rate/Rhythm: regular rate and regular rhythm; not tachycardic Heart Sounds: normal S1 and normal S2; no murmur Extremities: + edema (Trace edema bilaterally) Gastrointestinal (Abdomen): Inspection/Auscultation: normal bowel sounds; abdomen not distended Percussion/Palpation: abdomen soft; abdomen nontender Musculoskeletal: Extremities: + lower leg abnormality (Flexural deformities of the ankles) Neurologic: normal touch/pain/proprioception Lymphatic: no cervical or axillary lymphadenopathy Results & Data Results & Data ([facility]) Vital Signs (Past 12 Hours) Vital Signs Temp Pulse Resp BP Pulse Ox 12/16/21 15:28 37.0 C 80 18 107/75 97 12/16/21 07:56 36.5 C 65 16 104/67 98 Medications Administered Current Inpatient Medications Diclofenac Sodium (Diclofenac Sod 1% Gel 100 Gm Tube) 2 gm EXT TID [facility] Stop: 01/10/22 13:59 Last Admin: 12/16/21 14:02 Dose: Not Given Documented by: Furosemide (Furosemide 40 Mg Tab) 40 mg PO DAILY [facility] Stop: 12/27/21 08:59 Last Admin: 12/16/21 08:29 Dose: 40 mg Documented by: Hyoscyamine (Hyoscyamine Sulfate 0.125 Mg Tab) 0.125 mg PO TID PRN PRN Reason: Muscle Spasm Stop: 12/26/21 21:16 Last Admin: 11/27/21 08:36 Dose: 0.125 mg Documented by: Ibuprofen (Ibuprofen 200 Mg Tab) 400 mg PO Q6H PRN PRN Reason: Mild Pain Stop: 12/19/21 22:20 Lorazepam (Lorazepam 1 Mg Tab) 1 mg PO HS [facility] Stop: 01/02/22 22:44 Last Admin: 12/15/21 22:38 Dose: 1 mg Documented by: Morphine Sulfate (Morphine Sulfate 2 Mg/Ml Carp) 2 mg IV Q4H PRN PRN Reason: Pain Stop: 12/23/21 13:34 Last Admin: 12/12/21 12:07 Dose: 2 mg Documented by: Polyethylene Glycol (Polyethylene (Miralax) 17 Gm Pack) 17 gm PO DAILY PRN PRN Reason: Constipation Stop: 12/28/21 10:38 Last Admin: 12/10/21 07:59 Dose: 17 gm Documented by: Potassium Chloride (Potassium Chloride Crtab 20 Meq Tabcr) 20 meq PO DAILY [facility] Stop: 01/09/22 08:59 Last Admin: 12/16/21 08:29 Dose: 20 meq Documented by: Senna/Docusate Sodium (Docusate Sodium/Senna 50/8.6mg Tab) 1 tab PO QAM [facility] Stop: 12/28/21 10:44 Last Admin: 12/16/21 08:29 Dose: 1 tab Documented by:
[2021-12-16] MEDS: LORazepam 1 MG TAB PO SCH (21:01)
[2021-12-17] MEDS: FUROSEMIDE 40 MG TAB PO SCH (09:13)
[2021-12-17] MEDS: DOCUSATE SODIUM/SENNA 50/8.6MG TAB PO SCH (09:13)
[2021-12-17] MEDS: POTASSIUM CHLORIDE CRTAB 20 MEQ TABCR PO SCH (09:13)
[2021-12-17] MEDS: DICLOFENAC SOD 1% GEL 100 GM TUBE EXT SCH (09:15)
--- NOTE | 2021-12-17 10:09 | Discharge Summary ---
Date of Service December 17, 2021 Admission HPI Per Admitting Provider CHIEF COMPLAINT: Confusion. HISTORY OF PRESENT ILLNESS: A 56-year-old female with past medical history significant for severe multiple sclerosis, neurogenic bladder, detrusor hyperreflexia, history of cellulitis of left groin, wheelchair bound, lives at home with her , was brought in because of confusion. As per , recently her baclofen pump dose was reduced to minimal dose and started on p.o. baclofen. Since then, she is complaining of back pain. There was supposed to be a baclofen pump replacement, but the patient did not want to replace it because of complications that happened before.But since today morning she is confused, she is not at all moving. Her hands are contractured and she is not at all talking and confused. This happens when she gets infections. She was able to eat her lunch. Currently, she is drowsy, arousable, but only keep repeating her name does not answer any other questions. She has a mild temperature spike in the ER, white count of 19, and urinalysis grossly positive. Bilirubin is 2.5. Gallbladder ultrasound, no evidence of cholelithiasis or cholecystitis. As per , she is complaining of back pain, but no other symptoms. No nausea or vomiting. No fever. No diarrhea. Seems urine looks somewhat concentrated. Could not get much history currently. Admission Exam Per Admitting Provider Physical Exam: Lying in bed comfortably Constitutional: average body habitus; not ill appearing Eyes: PERRL, conjunctivae normal, anicteric sclerae ENMT: external ear and nose normal, oropharynx normal Neck: trachea midline, no thyromegaly Respiratory: no respiratory distress Auscultation: lungs clear to auscultation bilaterally Cardiovascular: Rate/Rhythm: regular rate and regular rhythm; not tachycardic Heart Sounds: normal S1 and normal S2; no murmur Extremities: + edema (Trace edema bilaterally) Gastrointestinal (Abdomen): Inspection/Auscultation: normal bowel sounds; abdomen not distended Percussion/Palpation: abdomen soft; abdomen nontender Musculoskeletal: Extremities: + lower leg abnormality (Flexural deformities of the ankles) Neurologic: normal touch/pain/proprioception Lymphatic: no cervical or axillary lymphadenopathy Principal Diagnosis Acute metabolic encephalopathy Lumbar compression fracture (L2) UTI (urinary tract infection) due to urinary indwelling catheter: Left ureteral stone Obstructive uropathy COVID-19 exposure Constipation Multiple sclerosis Elevated LFTs Discharge Data Allergies Allergy/AdvReac Type Severity Reaction Status Date / Time No Known Allergies Allergy ` Verified 11/02/21 19:05 Consultations 11/02/21 22:17 ED Decision to Admit Stat 11/03/21 08:00 Consult Gastroenterology Routine 11/03/21 09:31 Consult Pain Management Routine 11/04/21 18:35 Consult Urology Routine 11/05/21 07:38 Consult Orthopedic Surgery Routine 11/21/21 15:17 Consult Infectious Diseases Routine Procedures Performed Operation Date: 11/05/21 14:00 Actual Procedures p Cystoscopy, Left Stent Placement(Left) - Leon Gonzalez MD s Subrapubic Cystostomy(Not Applicable) - Leon Gonzalez MD Operation Date: 11/26/21 11:50 Actual Procedures p Cystolitholapaxy, Left Ureteroscopy, Retrograde Pyelogram,Laser Destruction or Extraction of Stone, Exchange Left Stent, (Not Applicable) - Leon Gonzalez MD s Suprapubic Cath Exchange - Leon Gonzalez MD Ordered Studies 11/02/21 19:35 US gallbladder Stat 11/03/21 09:39 CT abd pelvis IV con only Routine 11/05/21 09:30 FL retrograde includes kub Routine 11/05/21 10:08 CT lumbar spine wo con Routine 11/26/21 11:50 FL retrograde includes kub Routine 12/09/21 12:13 CT lumbar spine wo con Routine 12/10/21 08:36 MR lumbar spine wo con Urgent MRI OF THE LUMBAR SPINE WITHOUT IV CONTRAST CLINICAL HISTORY: Low back pain. COMPARISON STUDY: CT scans of the lumbar spine dated 12/09/2021 and 11/05/2021. TECHNIQUE: MRI of the lumbar spine is performed utilizing various T1 and T2- weighted sequences in the axial and sagittal planes. IV contrast was not administered for this examination. FINDINGS: Lumbar spine: There is a mild chronic inferior endplate compression fracture of L2, as well as mild chronic superior endplate compression fractures of L3 and L4. There is a mild acute to subacute superior endplate compression fracture of L1 with associated marrow edema. This is unchanged from yesterday but is new from the 11/05/2021 examination. Vertebral body height is maintained at T12 and L5. The transverse and spinous processes appear intact. There is no evidence of spondylolysis. Marrow signal intensity is heterogeneous. No destructive bony lesion is seen. Intervertebral discs: There is mild degenerative disc desiccation. The disc spaces are preserved. Spinal cord: The visualized spinal cord is normal in morphology and signal intensity. The conus medullaris terminates at the level of L1. The nerve roots of the cauda equina are normal in morphology. L1-L2: Unremarkable. L2-L3: There is minimal disc bulge. The central canal and neural foramina are patent. L3-L4: There is minimal disc bulge. The central canal and neural foramina are patent. L4-L5: The central canal and neural foramina are patent. L5-S1: Unremarkable. Sacrum: The visualized sacrum is normal in morphology and signal intensity. Soft tissues: There is marked fatty atrophy of the paraspinous and iliopsoas musculature. The retroperitoneal structures are grossly unremarkable but incompletely assessed. IMPRESSION: 1. There is an acute to subacute compression fracture of L1 with minimal loss of height and associated marrow edema. This is unchanged from yesterday but new from the 11/05/2021 examination. 2. Chronic compression deformities of L2, L3, and L4 are unchanged. 3. There is no disc herniation, central canal stenosis, or neural foraminal narrowing seen throughout the lumbar spine. 4. There is marked fatty atrophy of the paraspinous musculature. Dictated: 12/10/2021 3:43 PM Transcribed: 12/10/2021 4:08 PM Loreta [id number] [facility] Electronically signed by: Angel Luis Frank M.D. 12/10/2021 4:17 PM Dictated:12/10/21 1543 Transcribed: 12/10/[address] lumbar spine wo con CLINICAL HISTORY: back pain, hx L2 compression fracture COMPARISON STUDY: 11/05/2021 CT DOSE: 556.79 mGycm TECHNIQUE: Standard CT of the Lumbar Spine was performed without IV contrast. A dose lowering technique was utilized adhering to the principles of ALARA. FINDINGS: Bones: The bones are osteopenic. Old compression fractures are again seen involving the inferior endplate of L2 and the superior endplate of L3. There is no evidence for an acute fracture or malalignment. The heights of the remaining lumbar vertebral bodies are maintained. The vertebral bodies are in anatomic alignment. Disc spaces: There is mild disc space narrowing at L1-2, L2-3 and L5-S1. Facet joints: Mild hypertrophic facet joint disease is present involving the lower 2 disc space levels. Mild degenerative changes are seen involving the SI joints bilaterally. Soft tissues: The prevertebral soft tissues are within normal limits. However, there is evidence for a 9 mm right renal calculus. IMPRESSION: 1. Osteopenia with no acute osseous pathology. 2. Previous compression fractures of L2 and L3 are again seen. 3. Degenerative disc and degenerative facet joint disease. 4. Right renal calculus. ACT 112: Negative or not required by law. Electronically signed by: Grupo Leyva M.D. 12/09/2021 2:46 PM Dictated:12/09/21 1429 Transcribed: 12/09/21 1429 FL retrograde includes kub CLINICAL HISTORY: LEFT RETROGRADE COMPARISON STUDY: 11/05/2021 FLUOROSCOPY TIME: 14 second. FLUOROSCOPIC IMAGES: 2 FINDINGS: On the initial image, a guidewire is seen extending into the left renal pelvis. On the second image obtained, double-J ureteral stent is present. IMPRESSION: Status post placement of double-J ureteral stent on the left. ACT 112: Negative or not required by law. Electronically signed by: Grupo Leyva M.D. 11/26/2021 3:46 PM Dictated:11/26/21 1544 Transcribed: 11/26/[address] OF THE LUMBAR SPINE CLINICAL HISTORY: Back pain. COMPARISON STUDY: CT of the abdomen and pelvis November 03, 2021. TECHNIQUE: Helical axial images of the lumbar spine were obtained. Sagittal and coronal reconstructions were viewed. Automated exposure control was utilized for the study. A dose lowering technique was utilized adhering to the principles of ALARA. FINDINGS: For purposes of numbering on this exam, the L5-S1 disc space is assigned to axial image 291 of 399. Intrathecal catheter is partially imaged. Visualized portions of the catheter are intact. Bilateral renal calculi are noted. The largest calculus is an 8 mm calculus within the upper pole of the right kidney. Left hydronephrosis has resolved following stent placement. A 6 mm proximal left ureteral calculus/fragment is present. Gas within the left collecting system is from recent instrumentation. No acute lumbar spine fracture is noted. There is a mild compression fracture of the inferior endplate of L2 with 30% loss of vertebral body height. There is no retropulsion at this level. There are mild compression fractures of the superior endplates of L3 and L4. No retropulsion is noted. No suspicious osseous lesions are noted. The appearance of the lumbar spine fractures is unchanged since abdominal CT of November 03, 2021. There is moderate multilevel facet arthrosis within the lumbar spine. There is mild multilevel degenerative disc disease. IMPRESSION: 1. Mild compression fractures of the inferior endplate of L2 and superior endplates of L3 and L4. The L2 and L3 compression fractures are likely subacute. The L4 fracture is likely chronic. No retropulsion. 2. No acute lumbar spine fracture. 3. Moderate multilevel facet arthrosis and mild multilevel degenerative disc disease within the lumbar spine. 4. Partially visualized intrathecal catheter. Visualized portions intact. 5. Interval left ureteral stent placement with resolution of hydronephrosis. 6 mm proximal left ureteral calculus/fragment. Bilateral nephrolithiasis. ACT 112: Negative or not required by law. Electronically signed by: Sekou Blount M.D. 11/05/2021 1:49 PM Dictated:11/05/21 1341 Transcribed: 11/05/21 1341 FL retrograde includes kub CLINICAL HISTORY: Left retrograde exam with ureteral stent insertion. COMPARISON STUDY: CT of the abdomen and pelvis November 03, 2021. FLUOROSCOPY TIME: 16 seconds. FLUOROSCOPIC IMAGES: 4 FINDINGS: Fluoroscopy was provided during cystoscopy and left retrograde exam with placement of a left ureteral stent. IMPRESSION: Fluoroscopy provided during left retrograde exam with placement of a left ureteral stent. ACT 112: Negative or not required by law. Electronically signed by: Sekou Blonut M.D. 11/05/2021 10:36 AM Dictated:11/05/21 1034 Transcribed: 11/05/21 1034 ADDENDUM Addendum: Note is made of compression fractures of the inferior endplate of L2, superior endplate of L3 and superior endplate of L4. The L2 fracture may be subacute. Electronically signed by: Sekou Blount M.D. 11/03/2021 11:[address] OF THE ABDOMEN AND PELVIS WITH CONTRAST CLINICAL HISTORY: elevated LFTs. COMPARISON STUDY: Right upper quadrant ultrasound November 02, 2021. TECHNIQUE: Following IV administration of 95 mL of Optiray, axial images of the abdomen and pelvis were obtained from the lung bases to the proximal femurs. Images were reviewed in the axial, sagittal, and coronal planes. IV contrast was administered without complication. Automated exposure control was utilized for the study. A dose lowering technique was utilized adhering to the principles of ALARA. CT DOSE: 788.98 mGy.cm FINDINGS: [id number] is partially imaged. Trace left pleural effusion is noted with associated atelectasis. An intrathecal catheter is partially imaged. Catheter tip is not visualized on this exam. Visualized portions of the catheter are intact. No pneumatosis, free air or portal venous gas is present. The liver, spleen, adrenal glands and pancreas are unremarkable. There is no biliary or pancreatic ductal dilatation. There is no peripancreatic or pericholecystic infiltration. Bilateral renal calculi are noted, including an 8 mm calculus within the upper pole of the right kidney. There is mild left hydronephrosis due to a 7 mm proximal left ureteral calculus. In addition, there is a 3 mm calculus within the left renal pelvis. Left nephrogram is mildly delayed. A few hypoenhancing foci within the left kidney are noted. Mild left perinephric stranding is present. There is mild urothelial thickening of the proximal left ureter. Suprapubic catheter is in place. Note is made of a 1.6 cm bladder calculus. Bladder is collapsed. The caliber and wall thickness of small and large bowel are normal. The appendix is normal. There is no evidence for a bowel obstruction. There is trace presacral infiltration. Moderate amount stool within the rectum is noted. There is no abscess. Major vasculature is patent. Muscular atrophy is incidentally noted. IMPRESSION: 1. 7 mm proximal left ureteral calculus results in mild left hydronephrosis. Heterogeneous enhancement of the left kidney and urothelial thickening of the proximal left ureter is likely due to the obstruction however a superimposed infectious process could appear similar. 2. Bilateral nephrolithiasis. 3 mm left renal pelvis calculus. 3. No biliary ductal dilatation. 4. Suprapubic catheter in place. 1.6 cm bladder calculus. ACT 112: Negative or not required by law. Electronically signed by: Sekou Blount M.D. 11/03/2021 11:26 AM Dictated:11/03/21 1111 Transcribed: 11/03/21 1111 XR chest 1V portable CLINICAL HISTORY: Fever, eval for PNA. COMPARISON STUDY: No previous studies for comparison. TECHNIQUE: 1 view of the chest FINDINGS: Single frontal view of the chest demonstrates the cardiomediastinal silhouette to be within normal limits. The lungs are clear of alveolar opacities. There is no evidence for pleural effusion. There is no evidence for vascular congestion. There is no acute osseous pathology. IMPRESSION: No acute cardiopulmonary disease. ACT 112: Negative or not required by law. Electronically signed by: Grupo Leyva M.D. 11/02/2021 8:57 PM Dictated:11/02/212055 Transcribed: 11/02/212055 US gallbladder LIMITED ABDOMEN CLINICAL HISTORY: Back pain, elevated LFTs. COMPARISON: None. TECHNIQUE: Multiple grayscale and color images of the right upper quadrant of the abdomen. FINDINGS: Pancreas: The pancreas is within normal limits with no focal mass or peripancreatic fluid collection identified. Liver: The liver is heterogeneous in echogenicity There is no evidence for a focal mass. There is no intrahepatic biliary duct dilatation. Gallbladder: The gallbladder is well distended with no evidence of cholelithiasis, wall thickening or pericholecystic edema. There was a negative sonographic Field sign. Common Bile Duct: (CBD): It is normal in size measuring 5 mm. Inferior Vena Cava (IVC): The imaged IVC is patent. Right kidney: There is no evidence for hydronephrosis, calculus or gross renal mass. The kidney is normal in size. IMPRESSION: Heterogeneous echogenicity of the liver characteristic of hepatocellular disease and probable fatty infiltration. ACT 112: Negative or not required by law. Electronically signed by: Grupo Leyva M.D. 11/02/2021 9:04 PM Dictated:11/02/212100 Transcribed: 11/02/212100 Hospital Course (1) S/P ureteral stent placement: (2) Left ureteral stone: (3) Lumbar compression fracture: (4) UTI (urinary tract infection) due to urinary indwelling catheter: Acute metabolic encephalopathy Resolved Confusion likely due to complicated UTI Plan to discharge to rehab facility, Remains medically stable and will be transferred to [facility] tomorrow morning Lumbar compression fracture (L2) Reports increased pain with activity. Repeat lumbar spine CT shows no change in L2 and L3 compression fractures. Lumbar spine MRI ordered by spine Ortho - There is an acute to subacute compression fracture of L1 with minimal loss of height and associated marrow edema. Per Dr. Yusuf, * No significant compression on spinal MRI. Feels symptoms more related to significant disuse as she has been bedridden over past few week * Will attempt to optimize mobility with help of PT, nataliia to upright position more frequently * No indication for any surgical invention The pain is likely secondary to prolonged sitting and also lying in bed Pain seems to be reasonably controlled No acute symptoms Will increase NSAID doses-pain seems to be controlled UTI (urinary tract infection) due to urinary indwelling catheter: Complicated urinary tract infection w/ suprapubic catheter H/O neurogenic bladder with urine retention, left ureteral stone Urine Cx: Pseudomonas, Enterococcus Was on Zosyn>>Cefepime>>Zosyn [facility] ID : Recommends 2 week course of IV Zosyn Completed IV antibiotic course Denies any urinary symptoms and will be discharged when accepted Left ureteral stone Obstructive uropathy 11/05/21 -S/P cystoscopy, left stent placement, suprapubic cystostomy 11/19/2021 -patient was noted to have dark sonia urine with blood clots, urology reconsulted 11/26/21- Cystolitholapaxy, Left Ureteroscopy, Retrograde Pyelogram,Laser Destruction or Extraction of Stone, Exchange Left Stent. Bladder stone removed and sent for analysis. Needs Renal ultrasound in 2-3 months to assess for any residual hydronephrosis or residual/new stones Denies any pain in the abdomen COVID-19 exposure Screen for Covid negative Remains asymptomatic Repeat COVID test 12/08 negative Constipation Continue bowel regimen Multiple sclerosis Severe multiple sclerosis with paraparesis and neurogenic bladder and suprapubic catheter Suprapubic catheter changed by urology on 12/09 due to leaking - Continue with monthly exchanges, or prn catheter malfunction/issues. Wheelchair-bound S/P Intrathecal baclofen pump Her pump medication was changed on 30 of October Appreciate pain management input. Follow up outpatient No exacerbation Elevated LFTs Likely drug-induced liver injury secondary to Mayzet GI evaluated - Likely plan for outpatient EUS would like the Mayzent to discontinue due to the cost ( not able to afford it) Avoid hepatotoxic agents as able DVT Px Lovenox SQ Disposition -she has been accepted to [facility] and will be discharged today Total Time Total Time Spent Total Time Spent (In Minutes): 35 minutes Discharge Plan Discharge Items Patient Disposition: Transfer Halfway Fac Reason For Visit: BACK PAIN, CONFUSION Discharge Diagnosis: Complicated UTI with suprapubic catheter status, left ureteral stone with obstructive uropathy, metabolic and colopathy-resolved, mild L2 compression fracture with back pain, COVID-19 exposure with negative Covid test as of 12/08/2020. Multiple sclerosis with paraparesis and neurogenic bladder status post suprapubic catheter Condition on Discharge: Fair Activity: Resume your previous activity Non-emergency contact: Primary Care Provider Call non-emergency contact if: you have any medication questions and your symptoms worsen Follow-up/Referrals: Albert Huber PA-C [Physician Tent Assembler] - 12/04/21 11:00 am Marilyn Alcantar MD [Primary Care Provider] - (Please make an appointment with your primary care physician within 7 days following discharge from the facility) Diet: Heart Healthy Addtl Attending Provider Instructions: Follow up with your primary care provider once discharge from rehab Follow up with Pain management Cecile HUGHES on 12/04/21 @ 11AM Follow up with Gastroenterology to arrange for the endoscopy ultrasound Follow up with urology for the hydronephrosis and renal stone You will need a Renal ultrasound in 2-3 months to assess for any residual hydronephrosis or residual/new stones Please take precautions to avoid falls Take your medications as advised Please keep appointments with your healthcare providers Continue physical and occupational therapy Continue suprapubic quintanilla catheter Pending Studies at Discharge: No Stand-Alone Forms: My [facility] Skilled Items Patient informed of condition?: Yes DNR: No Discharge Level of Care: Skilled Communicable Disease: No Discharge Prognosis: Stable Lines: None Urinary Catheter: Yes Medications and DC Order Prescriptions: New potassium chloride 20 mEq Tablet,Er Particles/Crystals 20 meq PO DAILY 30 Days Qty: 30 RF: 0 polyethylene glycol 3350 [Miralax] 17 gram Powder In Packet 17 g PO DAILY PRN (Reason: constipation) 30 Days Qty: 30 RF: 0 sennosides-docusate sodium [Senokot-S] 8.6-50 mg Tablet 1 tab PO QAM Qty: 30 RF: 0 ibuprofen 400 mg tablet 400 mg PO Q8H PRN (Reason: pain) Qty: 30 RF: 0 lorazepam 1 mg Tablet 1 mg PO HS 5 Days Qty: 5 RF: 0 Continued baclofen pump intrathecal RF: 0 furosemide 40 mg tablet 40 mg PO DAILY 30 Days Qty: 30 RF: 0 ascorbic acid (vitamin C) 500 mg tablet 500 mg PO DAILY Qty: 30 RF: 0 baclofen 10 mg tablet 10 mg PO TID 10 Days Qty: 30 RF: 0 simvastatin 20 mg tablet 20 mg PO DAILY 30 Days Qty: 30 RF: 0 calcium carbonate 400 mg tablet,chewable 400 mg PO BID 30 Days Qty: 60 RF: 0 Discontinued Mayzent 2 mg tablet 2 mg PO DAILY RF: 0 lorazepam [Ativan] 1 mg tablet 1 mg PO HS RF: 0 Discharge Orders: Discharge Order (Routine); Ordered 12/17/21 Ordered By: Reid Gr Admission Data Admit Date/Time: 11/02/21 23:36 Attending Provider: Reid Gr Admit Provider: Guillermo Orozco Primary Care Provider: Marilyn Alcantar Other Providers: [facility] ; [facility] ; [facility] ; [facility] ; Sera Mijares ; Guillermo Orozco ; Horacio Person ; Albert Huber ; Juan Erazo ; Sohan Nogueira ; Alexei Mishra ; Christy Mclean ; [place] ; Caryn Webb ; Eleanor Browning ; Aspen Maharaj ; Leon Gonzalez ; Brendan Kerr ; Bina Floyd ; Zara Maharaj ; Albert Delong ; Dane Yusuf ; Miguel Sullivan ; Nicole Howell ; Kiet Bills I. ; Ifeanyi Del Valle II ; Rama Sow ; Fili John ; Robert Thomas ; Libra Bills ; Khanh Blakely
== END 2021-12-17 11:15 | DRG 659 ==
LOC: ED 17:04 → EDINP 23:36 → SUATTDRO 23:36 → EDINP 11-03 02:50 → 2N 11-03 14:39 → 3W 11-16 22:48